=== PATIENT | male | born 1990 | race Two or more races ===

== ENCOUNTER 2021-03-23 20:27 | Inpatient (IN) | payer OTHER, SELFPAY ==
--- NOTE | ~2021-03-23 | XR_ITS ---
EXAMINATION: XR CHEST CLINICAL INFORMATION: Rule out pneumonia. Rule out aspiration status post ECT. COMPARISON: None TECHNIQUE: AP portable view of the chest was obtained. FINDINGS: No significant abnormality is noted involving the heart, lungs, mediastinum, bony thorax or soft tissues. XR/XR chest 1V IMPRESSION: No acute disease.
--- NOTE | ~2021-03-23 | MR_ITS ---
EXAMINATION: MRI OF THE BRAIN WITHOUT CONTRAST CLINICAL INFORMATION: Atypical psychosis and catatonia. COMPARISON: There are no prior studies available for comparison. TECHNIQUE: MRI of the brain was obtained using routine sequences without contrast. FINDINGS: No diffusion abnormalities are identified to suggest an acute or subacute infarct. No mass effect or midline shift is seen. The ventricles are normal in size. Brain parenchymal signal is unremarkable. No extra-axial fluid collections are seen. The brainstem and cerebellum are normal. No pathologic magnetic susceptibility artifact is identified on the gradient refocused acquisition. The craniovertebral junction, marrow signal, and midline structures are normal. The major intracranial flow-voids at the level of the [place] are preserved. The dural venous sinus flow-voids are maintained. The mastoid air cells are well-aerated. There is a retention cyst in the inferior left maxillary sinus. MR/MR head/brain wo con IMPRESSION: 1. There are no acute bleeds or infarcts. No masses are demonstrated.
--- NOTE | ~2021-03-23 | CT_ITS ---
EXAMINATION: CT CHEST WITHOUT CONTRAST CLINICAL INFORMATION: Aspiration COMPARISON: Chest radiograph 03/29/2021 TECHNIQUE: Multidetector volumetric CT imaging of the chest is performed without intravenous contrast. Axial MIP volume rendering provided. Sagittal and coronal reformatted images were obtained. This CT examination was performed using dose optimization techniques as appropriate, variously including the following: *Automated exposure control *Adjustment of mA and/or kV according to patient size (this includes techniques or standardized protocols for targeted exams where dose is matched to indication/reason for exam; i.e. extremities or head) *Use of iterative reconstruction technique DLP: 126 mGy-cm FINDINGS: LUNGS: There is coarsening of the bronchovascular markings right lower lobe with at least one opacified bronchiole and some fine tree-in-bud acinar opacities which may be associated with aspiration. There is no lobar or segmental airspace consolidation. There is a small right effusion. The left lung has subsegmental atelectasis at the posterior base. The central airways are clear. There is a solitary nodule right middle lobe under 4 mm. MEDIASTINUM: No hilar or mediastinal adenopathy. No pericardial effusion. PLEURA: Small right effusion. No pleural thickening or pleural mass. AXILLA: No lymphadenopathy. UPPER ABDOMEN: Unremarkable. OSSEOUS STRUCTURES: Unremarkable. CT/CT chest wo con IMPRESSION: 1. Coarsening bronchovascular markings right lower lobe with 1 bronchiolar mucous plugging and some fine tree-in-bud acinar opacities suggesting sequela from aspiration. Subsegmental atelectasis left posterior base. Trace right effusion. No adenopathy. 2. No lobar or segmental airspace consolidation. 3. Solitary nodule right middle lobe under 4 mm. No additional follow-up required in low risk patient.
[2021-03-23 22:13] VITALS: BP 109/60; PULSE 74; TEMP 36.6; O2SAT 96
--- NOTE | 2021-03-24 | ECG_ITS ---
Test Reason : preop Blood Pressure : / mmHG Vent. Rate : 070 BPM Atrial Rate : 070 BPM P-R Int : 142 ms QRS Dur : 082 ms QT Int : 384 ms P-R-T Axes : 034 049 061 degrees QTc Int : 414 ms Normal sinus rhythm Normal ECG No previous ECGs available Referred By: Martin Godoy Electronically Signed By:JOELLE DIXON MD
[2021-03-24 06:00] VITALS: BP 116/76; PULSE 80; RESP 16; TEMP 36.4; O2SAT 97
[2021-03-24] MEDS: LORazepam 1 MG TABLET 2 MG PO ×2 (08:09→14:26)
--- NOTE | 2021-03-24 10:02 | HO.PSYADMNOT ---
HPI Chief Complaint: Depression Diagnostics Vital Signs (24Hr): Vital Signs - 24 hr 03/23/21 22:13 03/24/21 06:00 Temperature 97.9 F 97.6 F Pulse Rate 74 80 Respiratory Rate 16 Blood Pressure 109/60 116/76 Pulse Oximetry 96 97 Meds/Allergies Meds Home Medications Acetaminophen (Acetaminophen 325 Mg Tablet) 650 mg PO Q6H PRN PRN Reason: Headache/Pain Mild Scale (1-3) Al Hydroxide/Mg Hydroxide (Magnesium Hydrox/Alum Hydrox 30 Ml Oral.Susp) 30 ml PO Q6H PRN PRN Reason: Heartburn/Nausea Hydroxyzine HCl (Hydroxyzine Hcl 25 Mg Tablet) 25 mg PO BEDTIME PRN PRN Reason: Anxiety Lorazepam (Lorazepam 1 Mg Tablet) 2 mg PO TID JASON Last Admin: 03/24/21 08:09 Dose: 2 mg Documented by: Lorazepam (Lorazepam 2 Mg/Ml Vial) 2 mg IM TID PRN PRN Reason: if unable to tolerate PO Magnesium Hydroxide (Milk Of Magnesia 30 Ml Oral.Susp) 30 ml PO DAILY PRN PRN Reason: Constipation Olanzapine (Olanzapine 5 Mg Tablet) 5 mg PO BID PRN PRN Reason: psychosis Trazodone HCl (Trazodone Hcl 50 Mg Tablet) 50 mg PO BEDTIME PRN PRN Reason: Insomnia Allergies Allergies Allergy/AdvReac Type Severity Reaction Status Date / Time No Known Allergies Allergy Unverified 03/23/21 21:09
--- NOTE | 2021-03-24 15:30 | P.HPPS_ITS ---
Documented by User: Erlinda Salgado 03/25/21 10:06 HPI Date of Service: 03/24/21 Chief Complaint: Depression Sources of Information: patient interviewed, chart reviewed and crisis/core team assessment reviewed Additional Sources of Information: Collateral information gathered from pt's father Juan Ramon. HPI Subjective Notes: Section 8 Narrative: Mr. 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 Per pt's father, Juan Ramon, pt started at beginning of the year to present as internally preoccupied, reading bible, not going to sleep, reading his bible. Pt later quit his job for unclear reasons in May. By June, per father, pt was mostly at home and progressively mute, not eating not engaging much. Pt has his first inpatient psychiatric admission in 10/2020 at [facility] for catatonia that apparently quickly resolved and pt was discharged within a week. However, pt quickly de-compensated and continued to present as mute, not moving, minimally eating. Pt was admitted to [facility] inpatient psych unit on 12/14/20 for treatment of catatonia. Per records received from [facility] pt was initially started on ativan 2mg po TID, given IM as well with little to no improvement. Pt was after started on olanzapine and haldol for psychosis related to latter day preoccupations. Pt was involuntarily committed on 03/16/2021 with plan for pt to be transferred to facility that could provide ECT treatment. At time of discharge/transfer to [facility] pt was on haldol 10mg po BID, Olanzapine 15mg po BID, ativan 2mg po BID. Pt was transferred to [facility] M5 with plan to start ECT for tx resistant catatonia. On the unit, Pt lying down on bed. His eyes are open, he turns his head when his name is called. He is mute throughout our encounter. 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 He does not answer any of my questions. He is currently not eating nor receiving medications orally. Labs were completed on admission including CBC, CMP, all wnl. Pt seen by hospitalist for H&P and clearance for ECT. Pt's father contacted and updated on pt's status on admission. Past Psychiatric History: Inpatient: [facility] 10/2020 catatonia, religiously preoccupied Medical Evaluation Reviewed: Yes PMF Family History: maternal grandmother with hx of psychosis Social History: Pt was born in [place]. His parents are . He came to [place] at age of 12 to live with his father and step mother. He completed GED. 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 Not , no children. Substance History: Per father cannabis while in high school but no current use of any substance for more than 10 years. Trauma History: father denies but unable to discuss with pt at this time Diagnostics Vital Signs (24Hr): Vital Signs - 24 hr 03/23/21 22:13 03/24/21 06:00 Temperature 97.9 F 97.6 F Pulse Rate 74 80 Respiratory Rate 16 Blood Pressure 109/60 116/76 Pulse Oximetry 96 97 Labs Results: 03/24/21 15:40 03/24/21 15:40 Meds/Allergies Meds Home Medications Acetaminophen (Acetaminophen 325 Mg Tablet) 650 mg PO Q6H PRN PRN Reason: Headache/Pain Mild Scale (1-3) Al Hydroxide/Mg Hydroxide (Magnesium Hydrox/Alum Hydrox 30 Ml Oral.Susp) 30 ml PO Q6H PRN PRN Reason: Heartburn/Nausea Enoxaparin Sodium (Enoxaparin Sodium 40 Mg/0.4 Ml Syringe) 40 mg SUBCUT Q24H [facility] Last Admin: 03/26/21 16:01 Dose: 40 mg Documented by: Hydroxyzine HCl (Hydroxyzine Hcl 25 Mg Tablet) 25 mg PO BEDTIME PRN PRN Reason: Anxiety Lorazepam (Lorazepam 2 Mg/Ml Vial) 2 mg IM QID PRN PRN Reason: if unable to tolerate PO Lorazepam (Lorazepam 2 Mg/Ml Vial) 2 mg IVPUSH QID [facility] Last Admin: 03/26/21 20:33 Dose: Not Given Documented by: Magnesium Hydroxide (Milk Of Magnesia 30 Ml Oral.Susp) 30 ml PO DAILY PRN PRN Reason: Constipation Olanzapine (Olanzapine 2.5 Mg Tablet) 2.5 mg PO BEDTIME [facility] Last Admin: 03/26/21 21:01 Dose: Not Given Documented by: Trazodone HCl (Trazodone Hcl 50 Mg Tablet) 50 mg PO BEDTIME PRN PRN Reason: Insomnia Allergies Allergies Allergy/AdvReac Type Severity Reaction Status Date / Time No Known Allergies Allergy Unverified 03/23/21 21:09 Mental Status Exam Mental Status Exam Narrative: Pt is alert, lying in bed, casually groomed, in no acute distress, mute, unable to assess thought process/content, memory/condition, suicidal or homicidal ideation, delusional content. Assessment & Plan Assessment & Plan (1) Catatonia: Status: Acute Code(s): F06.1 - Catatonic disorder due to known physiological condition Assessment and Plan: Mr. Carcamo is a 30 year-old male with recent psych hx starting in May 2020 when pt started to present as religiously preoccupied, not sleeping, gradually socially withdrawing quitting his job, not leaving the house, progressively becoming mute, not moving much. He was first admitted to [facility] in 10/2020 for catatonia, discharged within week with some improvement in symptoms but quickly de-compensated showing s/s of catatonia including mutism, psychomotor retardation, waxy flexibility (some present now). Pt admitted to [facility] on 12/14, starting on ativan 2 mg po TID, then combination of haldol and olanzapine were started. Pt was committed by civil court on 03/16 with plan to transfer to facility that could provide ECT. PLAN 1. Admit to M5- on Section 8 2. Start Ativan 2mg IV QID 3. Medical examination in preparation for ECT 4. Plan to start ECT on 03/27/2021 5. Pt's father Juan Ramon provided most collateral information, and was informed of plan, updated on pt's condition, is in agreement. 6. Aftercare planning 7. Pt currently on 1:1 8. Due to limited mobility- pt started on DVT prevention protocol Lovenox 40mg SQ q24h- may hold day of ECT 9. NPO night (12 hrs) prior to ECT. 10. No medication to be given morning prior to ECT 11. For now will hold haldol, will continue low dose of olanzapine 2.5 mg po qhs- will adjust antipsychotic dose/use as observe response to ECT. 12. Monitor oral intake, monitor labs, IV fluid as needed. Reason for continued inpatient stay Substantial Risk for: inability to function Documented by User: Martin Godoy MD 03/26/21 22:47 HPI Chief Complaint: Depression Diagnostics Labs Results: 03/24/21 15:40 03/24/21 15:40 Meds/Allergies Meds Home Medications Acetaminophen (Acetaminophen 325 Mg Tablet) 650 mg PO Q6H PRN PRN Reason: Headache/Pain Mild Scale (1-3) Al Hydroxide/Mg Hydroxide (Magnesium Hydrox/Alum Hydrox 30 Ml Oral.Susp) 30 ml PO Q6H PRN PRN Reason: Heartburn/Nausea Enoxaparin Sodium (Enoxaparin Sodium 40 Mg/0.4 Ml Syringe) 40 mg SUBCUT Q24H [facility] Last Admin: 03/26/21 16:01 Dose: 40 mg Documented by: Hydroxyzine HCl (Hydroxyzine Hcl 25 Mg Tablet) 25 mg PO BEDTIME PRN PRN Reason: Anxiety Lorazepam (Lorazepam 2 Mg/Ml Vial) 2 mg IM QID PRN PRN Reason: if unable to tolerate PO Lorazepam (Lorazepam 2 Mg/Ml Vial) 2 mg IVPUSH QID [facility] Last Admin: 03/26/21 20:33 Dose: Not Given Documented by: Magnesium Hydroxide (Milk Of Magnesia 30 Ml Oral.Susp) 30 ml PO DAILY PRN PRN Reason: Constipation Olanzapine (Olanzapine 2.5 Mg Tablet) 2.5 mg PO BEDTIME [facility] Last Admin: 03/26/21 21:01 Dose: Not Given Documented by: Trazodone HCl (Trazodone Hcl 50 Mg Tablet) 50 mg PO BEDTIME PRN PRN Reason: Insomnia Allergies Allergies Allergy/AdvReac Type Severity Reaction Status Date / Time No Known Allergies Allergy Unverified 03/23/21 21:09 Assessment & Plan Assessment & Plan (1) Catatonia: Status: Acute Code(s): F06.1 - Catatonic disorder due to known physiological condition
[2021-03-24 15:46] LABS: MANUAL DIFF FLAG NO
--- NOTE | 2021-03-24 15:50 | HO.HSGERICON ---
History of Present Illness Data of Consult Service Date: 03/24/21 Primary Care Provider: Unknown Physician HPI Reason for consult: ECT Clearance This is a 30 yo M who was transferred from [facility] for reportedly ECT. It appears the patient was admitted there on December 15, 2020 and now is being transferred here for ECT. Medical consult requested for ECT clearance. Patient is seen and examined in his room. He is catatonic and does not speak or interact in any manner. History is very limited. D/w Erlinda Salgado NP (patients psych provider) -- she spoke with the patients father who reported that he had no medical history. PMH Unable to assess PSH Unable to assess FH Unable to assess SH Unable to assess Review of Systems Review of Systems: Unable to assess, patient does not talk PMFSH Pertinent family history: . Social History Household Members: Family Housing: House Patient Tobacco Use Status: Never used Tobacco Currently Displaying Signs/Symptoms of Drug Intoxication Withdrawal: No Any prior treatment program specific to substance use: No Advance Directives: No Advance Directives Information Provided: No Do you have thoughts of harming others: None Do you have a plan to hurt others: No Plan Recently lost weight without trying: Unsure How much weight loss: Unsure service: No Sexual orientation: Did not discuss Meds Allergies Allergy/AdvReac Type Severity Reaction Status Date / Time No Known Allergies Allergy Unverified 03/23/21 21:09 Active Medications: Current Medications Acetaminophen (Acetaminophen 325 Mg Tablet) 650 mg PO Q6H PRN PRN Reason: Headache/Pain Mild Scale (1-3) Al Hydroxide/Mg Hydroxide (Magnesium Hydrox/Alum Hydrox 30 Ml Oral.Susp) 30 ml PO Q6H PRN PRN Reason: Heartburn/Nausea Enoxaparin Sodium (Enoxaparin Sodium 40 Mg/0.4 Ml Syringe) 40 mg SUBCUT Q24H JASON Hydroxyzine HCl (Hydroxyzine Hcl 25 Mg Tablet) 25 mg PO BEDTIME PRN PRN Reason: Anxiety Lorazepam (Lorazepam 2 Mg/Ml Vial) 2 mg IM QID PRN PRN Reason: if unable to tolerate PO Lorazepam (Lorazepam 2 Mg/Ml Vial) 2 mg IVPUSH QID JASON Magnesium Hydroxide (Milk Of Magnesia 30 Ml Oral.Susp) 30 ml PO DAILY PRN PRN Reason: Constipation Olanzapine (Olanzapine 2.5 Mg Tablet) 2.5 mg PO BEDTIME JASON Trazodone HCl (Trazodone Hcl 50 Mg Tablet) 50 mg PO BEDTIME PRN PRN Reason: Insomnia Results Labs CBC and Chem 7: 03/24/21 15:40 03/24/21 15:40 Assessment and Plan (1) Routine medical exam: Status: Acute This is 30 yo M who was transferred from [facility] for ECT. Medical consult sought for ECT clearance. 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 His EKG shows NSR. Unclear if a CT head was done at [facility] -- would obtain records of this. CBC/BMP are within normal limits. It appears that he has been hospitalized in the psychiatric unit at [facility] since November and not improved. Benefits of ECT may out weight any risks that he has. Physical Exam Vital Signs: Last Vital Signs Temp 97.6 F 03/24/21 06:00 Pulse 80 03/24/21 06:00 Resp 16 03/24/21 06:00 BP 116/76 03/24/21 06:00 Pulse Ox 97 03/24/21 06:00 Const Other: Gen - Awake, but does not interact, eyes are open and move spontaneously HEENT - EOMI CVS - S1S2, RRR Lungs - No respiratory distress Abd - Soft Neuro - unable to assess his cranial nerves due to his catatonia Ext - no edema Neuro Cranial nerves: Yes Other cranial nerve findings present (Unable to assess CN fully )
[2021-03-24] MEDS: LORazepam 2 MG/ML VIAL IM (15:51)
[2021-03-24 15:52] LABS: Basophils Percent Auto 0.4 % (0-2); Eosinophils Percent Auto 0.4 % (0-4); Hematocrit 43.7 % (42-52); Hemoglobin 14.8 g/dl (14.0-18.0); Imm Gran Abs Auto 0.02 X10*3/uL (0.00-0.03); Imm Gran Pct Auto 0.4 % (0.0-0.4); Lymphocytes Absolute Auto 1.7 X10*3/uL (1.2-4.9); Lymphocytes Percent Auto 30.1 % (20-40); Mean Corpuscular HGB Conc 33.9 g/dl (31.0-36.0); Mean Corpuscular Hemoglobin 28.2 pg (27.0-33.0); Mean Corpuscular Volume 83.2 fL (80-98); Mean Platelet Volume 11.1 fL (9.4-12.4); Monocytes Absolute Auto 0.5 X10*3/uL (0.1-1.2); Monocytes Percent Auto 9.4 % (2-11); Neutrophils Absolute Auto 3.3 X10*3/uL (2.0-8.3); Neutrophils Percent Auto 59.3 % (45-73); Platelet Count 181 X10*3/uL (160-400); Red Blood Count 5.25 X10*6/uL (4.60-5.80); Red Cell Distribution Width 11.9 % (11.0-16.0); White Blood Count 5.5 X10*3/uL (4.8-10.8)
[2021-03-24] MEDS: Enoxaparin Sodium 40 MG/0.4 ML SYRINGE SUBCUT (15:53)
[2021-03-24 16:05] LABS: Alanine Aminotransferase 28 U/L (0-40); Albumin Level 4.3 g/dL (3.5-5.0); Alkaline Phosphatase 115 U/L (39-117); Anion Gap 15 (12-20); Aspartate Amino Transferase 19 U/L (5-37); Bilirubin Total 0.5 mg/dL (0.0-1.0); Blood Urea Nitrogen 10 mg/dL (9-16); Calcium 9.5 mg/dL (8.4-10.2); Carbon Dioxide 23 mmol/L (22-29); Chloride 105 mmol/L (96-108); Estimated Glomerular Filt Rate > 60; Glucose Random 86 mg/dL (60-115); Potassium 4.1 mmol/L (3.3-5.1); Sodium 139 mmol/L (135-145); Total Protein 7.2 g/dL (6.5-8.0)
[2021-03-24 18:30] VITALS: BP 118/63; PULSE 75; TEMP 35.7; O2SAT 94
[2021-03-24] MEDS: LORazepam 2 MG/ML VIAL IVPUSH ×2 (19:13→21:01)
[2021-03-25 06:00] VITALS: BP 114/62; PULSE 76; RESP 18; TEMP 36.9; O2SAT 95
[2021-03-25] MEDS: LORazepam 2 MG/ML VIAL IVPUSH ×4 (08:31→19:57)
--- NOTE | 2021-03-25 09:11 | HO.PSYCHPN ---
Subjective Subjective Date of Service: 03/25/21 Reason For Visit: Depression Healthcare Proxy: Yes Interim History: Remains catatonic with brief periods of cooperation. Refuses food and fluids. Alert but mute. Medication Compliance: No Review of Systems Review of Systems Unable to assess, patient does not talk Yes Unobtainable due to mental status Mental Status Exam Mental Status Exam Narrative: Pt is alert, lying in bed, casually groomed, in no acute distress, mute, unable to assess thought process/content, memory/condition, suicidal or homicidal ideation, delusional content. Patient Appearance: Unkempt Patient Behavior: Dependent Behavior Comments: Catatonic Ability to Follow Directions: Poor Hallucinations: None Delusions: Not Present (unknown) Thought Process: Slowed Thinking (PM retardation) Abnormal Motor Activity Signs and Symptoms: Psychomotor Retardation (severe) Judgement: Poor Diagnostics Vital Signs (24Hr): Vital Signs - 24 hr 03/24/21 18:30 03/25/21 06:00 Temperature 96.2 F L 98.5 F Pulse Rate 75 76 Respiratory Rate 18 Blood Pressure 118/63 114/62 Pulse Oximetry 94 95 Labs Results: 03/24/21 15:40 03/24/21 15:40 Labs: Laboratory Results - last 48 hr 03/24/21 03/24/21 15:40 15:40 WBC 5.5 RBC 5.25 Hgb 14.8 Hct 43.7 MCV 83.2 MCH 28.2 MCHC 33.9 RDW 11.9 Plt Count 181 MPV 11.1 Immature Gran % (Auto) 0.4 Neut % (Auto) 59.3 Lymph % (Auto) 30.1 [place] % (Auto) 9.4 Eos % (Auto) 0.4 Baso % (Auto) 0.4 Lymph # (Auto) 1.7 [place] # (Auto) 0.5 Eos # (Auto) 0.0 Baso # (Auto) 0.0 Abs Immat Gran (auto) 0.02 Absolute Neuts (auto) 3.3 Absolute Nucleated RBC 0.000 Nucleated RBC % (auto) 0.0 Sodium 139 Potassium 4.1 Chloride 105 Carbon Dioxide 23 Anion Gap 15 BUN 10 Creatinine 0.85 Estim Creat Clear Calc TNP Estimated GFR > 60 Random Glucose 86 Calcium 9.5 Total Bilirubin 0.5 AST 19 ALT 28 Alkaline Phosphatase 115 Total Creatine Kinase 71 Total Protein 7.2 Albumin 4.3 Medications Medications Current Medications Acetaminophen (Acetaminophen 325 Mg Tablet) 650 mg PO Q6H PRN PRN Reason: Headache/Pain Mild Scale (1-3) Al Hydroxide/Mg Hydroxide (Magnesium Hydrox/Alum Hydrox 30 Ml Oral.Susp) 30 ml PO Q6H PRN PRN Reason: Heartburn/Nausea Enoxaparin Sodium (Enoxaparin Sodium 40 Mg/0.4 Ml Syringe) 40 mg SUBCUT Q24H [facility] Last Admin: 03/24/21 15:53 Dose: 40 mg Documented by: Hydroxyzine HCl (Hydroxyzine Hcl 25 Mg Tablet) 25 mg PO BEDTIME PRN PRN Reason: Anxiety Lorazepam (Lorazepam 2 Mg/Ml Vial) 2 mg IM QID PRN PRN Reason: if unable to tolerate PO Lorazepam (Lorazepam 2 Mg/Ml Vial) 2 mg IVPUSH QID [facility] Last Admin: 03/25/21 08:31 Dose: 2 mg Documented by: Magnesium Hydroxide (Milk Of Magnesia 30 Ml Oral.Susp) 30 ml PO DAILY PRN PRN Reason: Constipation Olanzapine (Olanzapine 2.5 Mg Tablet) 2.5 mg PO BEDTIME [facility] Last Admin: 03/24/21 20:59 Dose: Not Given Documented by: Trazodone HCl (Trazodone Hcl 50 Mg Tablet) 50 mg PO BEDTIME PRN PRN Reason: Insomnia Allergies Allergies Allergy/AdvReac Type Severity Reaction Status Date / Time No Known Allergies Allergy Unverified 03/23/21 21:09 Assessment & Plan Assessment & Plan (1) Routine medical exam: Status: Acute Code(s): Z00.00 - Encounter for general adult medical examination without abnormal findings (2) Catatonia: Status: Acute Code(s): F06.1 - Catatonic disorder due to known physiological condition Assessment and Plan: Ct plan. Will benefit from ECT Assessment and Plan: This is 30 yo M who was transferred from [facility] for ECT. Medical consult sought for ECT clearance. 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 His EKG shows NSR. Unclear if a CT head was done at [facility] -- would obtain records of this. CBC/BMP are within normal limits. It appears that he has been hospitalized in the psychiatric unit at [facility] since November and not improved. Benefits of ECT may out weight any risks that he has. I spent minutes with the patient and/or on the patient floor today, greater than?50% of which was spent counseling/coordinating care. Reason for contiued inpatient stay Substantial Risk for: inability to function
[2021-03-25] MEDS: Enoxaparin Sodium 40 MG/0.4 ML SYRINGE SUBCUT (16:00)
[2021-03-25 18:59] VITALS: BP 113/66; PULSE 97; TEMP 36.7
[2021-03-26 06:00] VITALS: BP 109/68; PULSE 81; TEMP 36.5; O2SAT 95
--- NOTE | 2021-03-26 08:33 | P.PNPSI_ITS ---
Subjective Subjective Date of Service: 03/26/21 Reason For Visit: Depression Interim History: 03/25/21:Remains catatonic with brief periods of cooperation. Refuses food and fluids. Alert but mute. 03/26/21:Largely catatonic. Briefly active when F visited. Even ate Then lapsed into mutism and catatonia Medication Compliance: Intermittent Review of Systems Acute medical concerns: Yes Catatonia Medical Review of Systems: unchanged Review of Systems Review of Systems Unable to assess, patient does not talk Yes Unobtainable due to mental status Mental Status Exam Mental Status Exam Narrative: Pt is alert, lying in bed, casually groomed, in no acute distress, mute, unable to assess thought process/content, memory/condition, suicidal or homicidal ideation, delusional content. Patient Appearance: Unkempt Patient Behavior: Dependent Behavior Comments: Catatonic Ability to Follow Directions: Poor Judgement and Insight: Catatonic Diagnostics Vital Signs (24Hr): Vital Signs - 24 hr 03/25/21 18:59 03/26/21 06:00 Temperature 98.0 F 97.7 F Pulse Rate 97 81 Blood Pressure 113/66 109/68 Pulse Oximetry 95 Labs Results: 03/24/21 15:40 03/24/21 15:40 Labs: Laboratory Results - last 48 hr 03/24/21 03/24/21 15:40 15:40 WBC 5.5 RBC 5.25 Hgb 14.8 Hct 43.7 MCV 83.2 MCH 28.2 MCHC 33.9 RDW 11.9 Plt Count 181 MPV 11.1 Immature Gran % (Auto) 0.4 Neut % (Auto) 59.3 Lymph % (Auto) 30.1 [place] % (Auto) 9.4 Eos % (Auto) 0.4 Baso % (Auto) 0.4 Lymph # (Auto) 1.7 [place] # (Auto) 0.5 Eos # (Auto) 0.0 Baso # (Auto) 0.0 Abs Immat Gran (auto) 0.02 Absolute Neuts (auto) 3.3 Absolute Nucleated RBC 0.000 Nucleated RBC % (auto) 0.0 Sodium 139 Potassium 4.1 Chloride 105 Carbon Dioxide 23 Anion Gap 15 BUN 10 Creatinine 0.85 Estim Creat Clear Calc TNP Estimated GFR > 60 Random Glucose 86 Calcium 9.5 Total Bilirubin 0.5 AST 19 ALT 28 Alkaline Phosphatase 115 Total Creatine Kinase 71 Total Protein 7.2 Albumin 4.3 Medications Medications Current Medications Acetaminophen (Acetaminophen 325 Mg Tablet) 650 mg PO Q6H PRN PRN Reason: Headache/Pain Mild Scale (1-3) Al Hydroxide/Mg Hydroxide (Magnesium Hydrox/Alum Hydrox 30 Ml Oral.Susp) 30 ml PO Q6H PRN PRN Reason: Heartburn/Nausea Enoxaparin Sodium (Enoxaparin Sodium 40 Mg/0.4 Ml Syringe) 40 mg SUBCUT Q24H [facility] Last Admin: 03/25/21 16:00 Dose: 40 mg Documented by: Hydroxyzine HCl (Hydroxyzine Hcl 25 Mg Tablet) 25 mg PO BEDTIME PRN PRN Reason: Anxiety Lorazepam (Lorazepam 2 Mg/Ml Vial) 2 mg IM QID PRN PRN Reason: if unable to tolerate PO Lorazepam (Lorazepam 2 Mg/Ml Vial) 2 mg IVPUSH QID [facility] Last Admin: 03/25/21 19:57 Dose: 2 mg Documented by: Magnesium Hydroxide (Milk Of Magnesia 30 Ml Oral.Susp) 30 ml PO DAILY PRN PRN Reason: Constipation Olanzapine (Olanzapine 2.5 Mg Tablet) 2.5 mg PO BEDTIME [facility] Last Admin: 03/25/21 20:09 Dose: Not Given Documented by: Trazodone HCl (Trazodone Hcl 50 Mg Tablet) 50 mg PO BEDTIME PRN PRN Reason: Insomnia Allergies Allergies Allergy/AdvReac Type Severity Reaction Status Date / Time No Known Allergies Allergy Unverified 03/23/21 21:09 Assessment & Plan Assessment & Plan (1) Catatonia: Status: Acute Code(s): F06.1 - Catatonic disorder due to known physiological condition Assessment and Plan: Mr. Carcamo is a 30 year-old male with recent psych hx starting in May 2020 when pt started to present as religiously preoccupied, not sleeping, gradually socially withdrawing quitting his job, not leaving the house, progressively becoming mute, not moving much. He was first admitted to [facility] in 10/2020 for catatonia, discharged within week with some improvement in symptoms but quickly de-compensated showing s/s of catatonia including mutism, psychomotor retardation, waxy flexibility (some present now). Pt admitted to [place] on 12/14, starting on ativan 2 mg po TID, then combination of haldol and olanz apine were started. Pt was committed by civil court on 03/16 with plan to transfer to facility that could provide ECT. PLAN 1. Admit to M5- on Section 8 2. Start Ativan 2mg IV QID 3. Medical examination in preparation for ECT 4. Plan to start ECT on 03/27/2021 5. Pt's father Juan Ramon provided most collateral information, and was informed of plan, updated on pt's condition, is in agreement. 6. Aftercare planning 7. Pt currently on 1:1 8. Due to limited mobility- pt started on DVT prevention protocol Lovenox 40mg SQ q24h- may hold day of ECT 9. NPO night (12 hrs) prior to ECT. 10. No medication to be given morning prior to ECT 11. For now will hold haldol, will continue low dose of olanzapine 2.5 mg po qhs- will adjust antipsychotic dose/use as observe response to ECT. 12. Monitor oral intake, monitor labs, IV fluid as needed. 1031: Ct plan towards ECT. Starts ECT on 03/27 I spent minutes with the patient and/or on the patient floor today, greater than?50% of which was spent counseling/coordinating care. Reason for contiued inpatient stay Substantial Risk for: inability to function
[2021-03-26] MEDS: LORazepam 2 MG/ML VIAL IVPUSH ×3 (08:50→16:44)
[2021-03-26] MEDS: Enoxaparin Sodium 40 MG/0.4 ML SYRINGE SUBCUT (16:01)
[2021-03-26 18:00] VITALS: BP 127/78; PULSE 90; RESP 18; TEMP 36.6; O2SAT 97
[2021-03-27] VITALS (9 sets, daily range): BP systolic 108–149; BP diastolic 65–95; PULSE 77–106; RESP 12–17; TEMP 36.1–36.9; O2SAT 95–99
--- NOTE | 2021-03-27 11:52 | HO.ANESPROP2 ---
HPI - Anesthesia Eval Consult details Narrative: 30 yo male patient with catatonia. For ECT PMFSH Active Problems Active Problems: All Active Problems (Updated 03/25/21 @ 09:56 by Erlinda Salgado) Catatonia (Acute) Routine medical exam (Acute) Apparently no PMH per chart from family, Psychiatry provider from [facility]. On admission at [facility] since November with no improvement in catatonia on meds. Transferred to [facility] for ECT [place] Family History Family history of problems with anesthesia: Unobtainable Surgical History History of Problems with Anesthesia: Unobtainable Social History Social History Household Members: Family Housing: House Patient Tobacco Use Status: Never used Tobacco Currently Displaying Signs/Symptoms of Drug Intoxication Withdrawal: No Any prior treatment program specific to substance use: No Advance Directives: No Advance Directives Information Provided: No Do you have thoughts of harming others: None Do you have a plan to hurt others: No Plan Recently lost weight without trying: Unsure How much weight loss: Unsure service: No Sexual orientation: Did not discuss Meds Allergies Allergy/AdvReac Type Severity Reaction Status Date / Time No Known Allergies Allergy Unverified 03/23/21 21:09 Active Medications: Current Medications Acetaminophen (Acetaminophen 325 Mg Tablet) 650 mg PO Q6H PRN PRN Reason: Headache/Pain Mild Scale (1-3) Al Hydroxide/Mg Hydroxide (Magnesium Hydrox/Alum Hydrox 30 Ml Oral.Susp) 30 ml PO Q6H PRN PRN Reason: Heartburn/Nausea Enoxaparin Sodium (Enoxaparin Sodium 40 Mg/0.4 Ml Syringe) 40 mg SUBCUT Q24H [facility] Last Admin: 03/26/21 16:01 Dose: 40 mg Documented by: Hydroxyzine HCl (Hydroxyzine Hcl 25 Mg Tablet) 25 mg PO BEDTIME PRN PRN Reason: Anxiety Lorazepam (Lorazepam 2 Mg/Ml Vial) 2 mg IM QID PRN PRN Reason: if unable to tolerate PO Lorazepam (Lorazepam 2 Mg/Ml Vial) 2 mg IVPUSH QID [facility] Last Admin: 03/27/21 10:04 Dose: Not Given Documented by: Magnesium Hydroxide (Milk Of Magnesia 30 Ml Oral.Susp) 30 ml PO DAILY PRN PRN Reason: Constipation Olanzapine (Olanzapine 2.5 Mg Tablet) 2.5 mg PO BEDTIME [facility] Last Admin: 03/26/21 21:01 Dose: Not Given Documented by: Trazodone HCl (Trazodone Hcl 50 Mg Tablet) 50 mg PO BEDTIME PRN PRN Reason: Insomnia Exam Exam Date and Time: March 27, 2021 1152 Height,Weight and Vital Signs: Height: 5' 4 Weight: 68kg Last Vital Signs Temp 97 F 03/27/21 06:00 Pulse 77 03/27/21 06:00 Resp 16 03/27/21 06:00 BP 108/65 03/27/21 06:00 Pulse Ox 95 03/27/21 06:00 Vital Signs Temp Pulse Resp BP Pulse Ox 03/27/21 06:00 97 F 77 16 108/65 95 03/26/21 18:00 97.9 F 90 18 127/78 97 Pertinent Lab Results Pertinent Lab Results: Laboratory Tests 03/24/21 03/24/21 15:40 15:40 WBC 5.5 RBC 5.25 Hgb 14.8 Hct 43.7 MCV 83.2 MCH 28.2 MCHC 33.9 RDW 11.9 Plt Count 181 MPV 11.1 Immature Gran % (Auto) 0.4 Neut % (Auto) 59.3 Lymph % (Auto) 30.1 [place] % (Auto) 9.4 Eos % (Auto) 0.4 Baso % (Auto) 0.4 Lymph # (Auto) 1.7 [place] # (Auto) 0.5 Eos # (Auto) 0.0 Baso # (Auto) 0.0 Abs Immat Gran (auto) 0.02 Absolute Neuts (auto) 3.3 Absolute Nucleated RBC 0.000 Nucleated RBC % (auto) 0.0 Sodium 139 Potassium 4.1 Chloride 105 Carbon Dioxide 23 Anion Gap 15 BUN 10 Creatinine 0.85 Estim Creat Clear Calc TNP Estimated GFR > 60 Random Glucose 86 Calcium 9.5 Total Bilirubin 0.5 AST 19 ALT 28 Alkaline Phosphatase 115 Total Creatine Kinase 71 Total Protein 7.2 Albumin 4.3 12 lead ekg: Date of Service: 03/24/21 Procedure(s): ECG 12 lead EKG Vent. Rate : 070 BPM ? ? Atrial Rate : 070 BPM ?? P-R Int : 142 ms? QRS Dur : 082 ms ? ? QT Int : 384 ms ? ? ? P-R-T Axes : 034 049 061 degrees ?? QTc Int : 414 ms ? Normal sinus rhythm Normal ECG No previous ECGs available ? Airway Heart: RRR Lungs: CTAB Assessment and Plan Assessment Anesthesia Assessment: Anesthesia Plan Discussed and Chart Reviewed Final Anesthetic Review Family History of Problems with Anesthesia: Unobtainable History of Problems with Anesthesia: Unobtainable NPO: Yes ASA Class: III Final Preanesthetic Review: No Changes in Pt Med Stat, Meds/Allgs Chart Reviewed, Consent Obtained/Reviewed and Anes Risks/Benef Reviewed Patient Risk: Intermediate Procedure Risk: Intermediate Assessment/Block/Sedation in SS: Assess/Block/Sedation-SS Anesthetic Plan Anesthetic Plan: GA Disposition: Standard PACU and Inp. Admit - Standard Bed
--- NOTE | 2021-03-27 12:41 | MHC.SHP ---
Pre-Procedural Eval Section A Date of Service: 03/27/21 The patient is an INPATIENT: Yes Changes since office visit: No Cold of Flu in the past 2 weeks, No New Medical Problems, No Changes in Medication and No Patient answered all questions Section B Chief Complaint: Depression Details of Present Illness: The patient has catatonic symptoms, unable to verbalize new symptoms Relevant Family History (Specify if Yes): No Relevant Social History: None Present Medications: None Medical History: No relevant PMH History of Previous Operations: No relevant previous surgery Allergies: Allergies Allergy/AdvReac Type Severity Reaction Status Date / Time No Known Allergies Allergy Unverified 03/23/21 21:09 Review of Systems Sugical H&P ROS: Negative: Constitution, Cardiovascular, Respiratory, Neurological, Psychiatric, Hem-Onc, Allergic/Immunologic, Gastrointestinal, Genitourinary, Musculoskeletal, Integumentary, Endocrine and Eyes/Ears/Nose/Throat Exam Surgical H&P Exam: Normal: HEENT, Normal: Heart, Normal: Lungs, Normal: Extremities, Normal: Abdomen, Normal: Skin and Normal: Neurological Plan Diagnosis/Plan: Unchanged I have reviewed the history and physical and performed a pertinent physical examination on my patient. No changes have occurred unless specified.
--- NOTE | 2021-03-27 13:14 | HO.ECTPROC ---
ECT Procedure Note Diagnosis/Treatment Date of Service: 03/27/21 Diagnosis: Catatonia Current Treatment Number: 1 Treatment: Series Interval Clinical Notes: The patient was catatonic, mute, unable to answer any question. ECT Settings Device: THYMATRON DGx Electrode Placement: Bitemporal Program/Pulse Width: 0.50 Energy Percent: 100 Seizure Duration By EEG (in seconds): 59 By Motor Observation (in seconds): 25 Medications Administration General Anesthetic: Etomidate (16) Muscle Relaxant: Succinylcholine (100) Ancillary Medications Analgesics: Torodol - Pre ECT Anti-emetics: Zofran - Pre ECT Airway Management Airway Management: Bag Mask Ventilation Treatment Recommendations Electrode Placement: Bifrontal Program/Pulse Width: 0.50 Energy Percent: 80 Pt Tolerated Procedure w/o Issue: Yes
[2021-03-27 13:16] LABS: COVID-19 Test Negative (Negative)
[2021-03-27] MEDS: Enoxaparin Sodium 40 MG/0.4 ML SYRINGE SUBCUT (15:13)
[2021-03-27] MEDS: LORazepam 2 MG/ML VIAL IVPUSH ×3 (15:13→20:32)
--- NOTE | 2021-03-27 15:31 | HO.PSYCHPN ---
Subjective Subjective Date of Service: 03/27/21 Reason For Visit: Depression Subjective Notes: Conditional Voluntary Interim History: Pt had first ECT today. Pt after more verbal although limit to few words to answer, smiling. He saw family. He reports he is doing okay. He was eating lunch. Medication Compliance: Yes Side effects from medications: No Attending Groups: No Review of Systems Review of Systems Unable to assess, patient does not talk Yes Unobtainable due to mental status Mental Status Exam Mental Status Exam Narrative: Appearance: casually groomed, fair hygiene in NAD Behavior:smiles at times psychomotor:less retardation Speech: monosylabic, clear, minimally spontaneous Thought process: Thought content: Mood: okay Affect: brightens at times SI:denies HI:denies VH/AH:unable to respond Delusions:no overt delusional content, but internally preoccupied Insight/judgment:impaired x 2 Memory/cog:alert, impaired secondary to psychiatric symptoms. not oriented to place, situation Diagnostics Vital Signs (24Hr): Vital Signs - 24 hr 03/26/21 18:00 03/27/21 06:00 03/27/21 13:21 Temperature 97.9 F 97.0 F 97.9 F Pulse Rate 90 77 85 Respiratory Rate 18 16 17 Blood Pressure 127/78 108/65 149/83 H Pulse Oximetry 97 95 96 03/27/21 13:26 03/27/21 13:31 03/27/21 13:36 Temperature Pulse Rate 106 H 102 H 98 Respiratory Rate 12 15 16 Blood Pressure 146/90 H 137/95 H 139/78 Pulse Oximetry 97 98 99 03/27/21 13:51 03/27/21 14:06 03/27/21 14:41 Temperature 98.4 F 98.3 F Pulse Rate 99 95 87 Respiratory Rate 16 16 16 Blood Pressure 120/84 122/75 126/83 Pulse Oximetry 96 98 96 Labs Results: 03/24/21 15:40 03/24/21 15:40 Labs: Laboratory Results - last 48 hr 03/27/21 12:45 COVID-19 ([facility]) Negative COVID-19 Clin Com See Note Medications Medications Current Medications Acetaminophen (Acetaminophen 325 Mg Tablet) 650 mg PO Q6H PRN PRN Reason: Headache/Pain Mild Scale (1-3) Acetaminophen (Acetaminophen 325 Mg Tablet) 650 mg PO ONCE PRN PRN Reason: Pain, Mild (Pain Scale 1-3) Al Hydroxide/Mg Hydroxide (Magnesium Hydrox/Alum Hydrox 30 Ml Oral.Susp) 30 ml PO Q6H PRN PRN Reason: Heartburn/Nausea Enoxaparin Sodium (Enoxaparin Sodium 40 Mg/0.4 Ml Syringe) 40 mg SUBCUT Q24H [facility] Last Admin: 03/27/21 15:13 Dose: 40 mg Documented by: Hydroxyzine HCl (Hydroxyzine Hcl 25 Mg Tablet) 25 mg PO BEDTIME PRN PRN Reason: Anxiety Lorazepam (Lorazepam 2 Mg/Ml Vial) 2 mg IM QID PRN PRN Reason: if unable to tolerate PO Lorazepam (Lorazepam 2 Mg/Ml Vial) 2 mg IVPUSH QID [facility] Last Admin: 03/27/21 16:53 Dose: 2 mg Documented by: Magnesium Hydroxide (Milk Of Magnesia 30 Ml Oral.Susp) 30 ml PO DAILY PRN PRN Reason: Constipation Olanzapine (Olanzapine 2.5 Mg Tablet) 2.5 mg PO BEDTIME [facility] Last Admin: 03/26/21 21:01 Dose: Not Given Documented by: Ondansetron HCl (Ondansetron Hcl 4 Mg/2 Ml Vial) 4 mg IVPUSH ONCE PRN PRN Reason: Nausea and Vomiting Oxycodone HCl (Oxycodone Hcl Immed Release 5 Mg Tablet) 5 mg PO ONCE PRN PRN Reason: Pain, Severe (Pain Scale 7-10) Trazodone HCl (Trazodone Hcl 50 Mg Tablet) 50 mg PO BEDTIME PRN PRN Reason: Insomnia Allergies Allergies Allergy/AdvReac Type Severity Reaction Status Date / Time No Known Allergies Allergy Unverified 03/23/21 21:09 Assessment & Plan Assessment & Plan (1) Catatonia: Status: Acute Code(s): F06.1 - Catatonic disorder due to known physiological condition Assessment and Plan: Mr. Carcamo is a 30 year-old male with recent psych hx starting in May 2020 when pt started to present as religiously preoccupied, not sleeping, gradually socially withdrawing quitting his job, not leaving the house, progressively becoming mute, not moving much. He was first admitted to [facility] in 10/2020 for catatonia, discharged within week with some improvement in symptoms but quickly de-compensated showing s/s of catatonia including mutism, psychomotor retardation, waxy flexibility (some present now). Pt admitted to [place] on 12/14, starting on ativan 2 mg po TID, then combination of haldol and olanzapine were started. Pt was committed by civil court on 03/16 with plan to transfer to facility that could provide ECT. PLAN 1. Admit to - on Section 8 2. Start Ativan 2mg IV QID 3. Medical examination in preparation for ECT 4. Plan to start ECT on 03/27/2021 5. Pt's father Juan Ramon provided most collateral information, and was informed of plan, updated on pt's condition, is in agreement. 6. Aftercare planning 7. Pt currently on 1:1 8. Due to limited mobility- pt started on DVT prevention protocol Lovenox 40mg SQ q24h- may hold day of ECT 9. NPO night (12 hrs) prior to ECT. 10. No medication to be given morning prior to ECT 11. For now will hold haldol, will continue low dose of olanzapine 2.5 mg po qhs- will adjust antipsychotic dose/use as observe response to ECT. 12. Monitor oral intake, monitor labs, IV fluid as needed. I spent minutes with the patient and/or on the patient floor today, greater than?50% of which was spent counseling/coordinating care. Reason for contiued inpatient stay Substantial Risk for: inability to function
[2021-03-27] MEDS: OLANZapine 2.5 MG TABLET PO (20:33)
[2021-03-28 06:00] VITALS: BP 118/60; PULSE 94; TEMP 37; O2SAT 95
[2021-03-28] MEDS: LORazepam 2 MG/ML VIAL IVPUSH ×4 (08:10→22:00)
[2021-03-28 12:05] VITALS: BMI 25.3
[2021-03-28] MEDS: Enoxaparin Sodium 40 MG/0.4 ML SYRINGE SUBCUT (16:03)
--- NOTE | 2021-03-28 16:04 | HO.PSYCHPN ---
Subjective Subjective Date of Service: 03/28/21 Reason For Visit: Depression Subjective Notes: Section 8 Interim History: Pt mostly in bed, not moving much but talking a bit more. He was able to respond simple questions appropriately with one or two words. He reports he is fine. He was able to tell year, place, month and date correctly. He denies SI/HI. Continues to present with significant catatonic s/s including waxy flexibility, speech minimally if any spontaneous, black stare, mostly in bed, oral intake minimal. Review of Systems Review of Systems Unable to assess, patient does not talk Yes Unobtainable due to mental status Mental Status Exam Mental Status Exam Narrative: Appearance: casually groomed, fair hygiene in NAD Behavior:smiles at times psychomotor:less retardation Speech: monosylabic, clear, minimally spontaneous Thought process: Thought content: Mood: okay Affect: brightens at times SI:denies HI:denies VH/AH:unable to respond Delusions:no overt delusional content, but internally preoccupied Insight/judgment:impaired x 2 Memory/cog:alert, oriented to place, month, date, year. Diagnostics Vital Signs (24Hr): Vital Signs - 24 hr 03/27/21 20:30 03/28/21 06:00 Temperature 98 F 98.6 F Pulse Rate 94 94 Blood Pressure 116/90 H 118/60 Pulse Oximetry 95 Body Mass Index 25.3 Labs Results: 03/24/21 15:40 03/24/21 15:40 Labs: Laboratory Results - last 48 hr 03/27/21 12:45 COVID-19 ([facility]) Negative COVID-19 Clin Com See Note Medications Medications Current Medications Acetaminophen (Acetaminophen 325 Mg Tablet) 650 mg PO Q6H PRN PRN Reason: Headache/Pain Mild Scale (1-3) Acetaminophen (Acetaminophen 325 Mg Tablet) 650 mg PO ONCE PRN PRN Reason: Pain, Mild (Pain Scale 1-3) Al Hydroxide/Mg Hydroxide (Magnesium Hydrox/Alum Hydrox 30 Ml Oral.Susp) 30 ml PO Q6H PRN PRN Reason: Heartburn/Nausea Enoxaparin Sodium (Enoxaparin Sodium 40 Mg/0.4 Ml Syringe) 40 mg SUBCUT Q24H [facility] Last Admin: 03/27/21 15:13 Dose: 40 mg Documented by: Hydroxyzine HCl (Hydroxyzine Hcl 25 Mg Tablet) 25 mg PO BEDTIME PRN PRN Reason: Anxiety Lorazepam (Lorazepam 2 Mg/Ml Vial) 2 mg IM QID PRN PRN Reason: if unable to tolerate PO Lorazepam (Lorazepam 2 Mg/Ml Vial) 2 mg IVPUSH QID [facility] Last Admin: 03/28/21 13:23 Dose: 2 mg Documented by: Magnesium Hydroxide (Milk Of Magnesia 30 Ml Oral.Susp) 30 ml PO DAILY PRN PRN Reason: Constipation Olanzapine (Olanzapine 2.5 Mg Tablet) 2.5 mg PO BEDTIME [facility] Last Admin: 03/27/21 20:33 Dose: 2.5 mg Documented by: Ondansetron HCl (Ondansetron Hcl 4 Mg/2 Ml Vial) 4 mg IVPUSH ONCE PRN PRN Reason: Nausea and Vomiting Oxycodone HCl (Oxycodone Hcl Immed Release 5 Mg Tablet) 5 mg PO ONCE PRN PRN Reason: Pain, Severe (Pain Scale 7-10) Trazodone HCl (Trazodone Hcl 50 Mg Tablet) 50 mg PO BEDTIME PRN PRN Reason: Insomnia Allergies Allergies Allergy/AdvReac Type Severity Reaction Status Date / Time No Known Allergies Allergy Unverified 03/23/21 21:09 Assessment & Plan Assessment & Plan (1) Catatonia: Status: Acute Code(s): F06.1 - Catatonic disorder due to known physiological condition Assessment and Plan: Mr. Carcamo is a 30 year-old male with recent psych hx starting in May 2020 when pt started to present as religiously preoccupied, not sleeping, gradually socially withdrawing quitting his job, not leaving the house, progressively becoming mute, not moving much. He was first admitted to [facility] in 10/2020 for catatonia, discharged within week with some improvement in symptoms but quickly de-compensated showing s/s of catatonia including mutism, psychomotor retardation, waxy flexibility (some present now). Pt admitted to [place] on 12/14, starting on ativan 2 mg po TID, then combination of haldol and olanzapine were started. Pt was committed by civil court on 03/16 with plan to transfer to facility that could provide ECT. PLAN 1. Admit to M5- on Section 8 2. Continue Ativan 2mg IV QID 3. Medical examination in preparation for ECT 4. Plan to start ECT on 03/27/2021 5. Pt's father Juan Ramon provided most collateral information, and was informed of plan, updated on pt's condition, is in agreement. 6. Aftercare planning 7. Pt currently on 1:1 8. Due to limited mobility- pt started on DVT prevention protocol Lovenox 40mg SQ q24h- may hold day of ECT 9. NPO night (12 hrs) prior to ECT. 10. No medication to be given morning prior to ECT 11. For now will hold haldol, will continue low dose of olanzapine 2.5 mg po qhs- will adjust antipsychotic dose/use as observe response to ECT. 12. Monitor oral intake, monitor labs, IV fluid as needed. I spent minutes with the patient and/or on the patient floor today, greater than?50% of which was spent counseling/coordinating care. Reason for contiued inpatient stay Substantial Risk for: inability to function
[2021-03-28] MEDS: OLANZapine 2.5 MG TABLET PO (22:03)
[2021-03-28 22:15] VITALS: BP 112/55; PULSE 103; TEMP 37.1; O2SAT 95
[2021-03-29] VITALS (15 sets, daily range): BP systolic 111–150; BP diastolic 63–92; PULSE 87–121; RESP 14–18; TEMP 36.9–39.7; O2SAT 94–99
--- NOTE | 2021-03-29 07:27 | P.CONAN_ITS ---
HPI - Anesthesia Eval Consult details Narrative: Major depression [facility] Active Problems Active Problems: All Active Problems (Updated 03/25/21 @ 09:56 by Erlinda Salgado) Catatonia (Acute) Routine medical exam (Acute) Family History Family history of problems with anesthesia: Unobtainable Surgical History History of Problems with Anesthesia: Unobtainable Social History Social History Household Members: Family Housing: House Patient Tobacco Use Status: Never used Tobacco Currently Displaying Signs/Symptoms of Drug Intoxication Withdrawal: No Any prior treatment program specific to substance use: No Advance Directives: No Advance Directives Information Provided: No Do you have thoughts of harming others: None Do you have a plan to hurt others: No Plan Recently lost weight without trying: Unsure How much weight loss: Unsure service: No Sexual orientation: Did not discuss Meds Allergies Allergy/AdvReac Type Severity Reaction Status Date / Time No Known Allergies Allergy Unverified 03/23/21 21:09 Active Medications: Current Medications Acetaminophen (Acetaminophen 325 Mg Tablet) 650 mg PO Q6H PRN PRN Reason: Headache/Pain Mild Scale (1-3) Acetaminophen (Acetaminophen 325 Mg Tablet) 650 mg PO ONCE PRN PRN Reason: Pain, Mild (Pain Scale 1-3) Al Hydroxide/Mg Hydroxide (Magnesium Hydrox/Alum Hydrox 30 Ml Oral.Susp) 30 ml PO Q6H PRN PRN Reason: Heartburn/Nausea Enoxaparin Sodium (Enoxaparin Sodium 40 Mg/0.4 Ml Syringe) 40 mg SUBCUT Q24H [facility] Last Admin: 03/28/21 16:03 Dose: 40 mg Documented by: Hydroxyzine HCl (Hydroxyzine Hcl 25 Mg Tablet) 25 mg PO BEDTIME PRN PRN Reason: Anxiety Lorazepam (Lorazepam 2 Mg/Ml Vial) 2 mg IM QID PRN PRN Reason: if unable to tolerate PO Lorazepam (Lorazepam 2 Mg/Ml Vial) 2 mg IVPUSH QID [facility] Last Admin: 03/28/21 22:00 Dose: 2 mg Documented by: Magnesium Hydroxide (Milk Of Magnesia 30 Ml Oral.Susp) 30 ml PO DAILY PRN PRN Reason: Constipation Olanzapine (Olanzapine 2.5 Mg Tablet) 2.5 mg PO BEDTIME [facility] Last Admin: 03/28/21 22:03 Dose: 2.5 mg Documented by: Ondansetron HCl (Ondansetron Hcl 4 Mg/2 Ml Vial) 4 mg IVPUSH ONCE PRN PRN Reason: Nausea and Vomiting Oxycodone HCl (Oxycodone Hcl Immed Release 5 Mg Tablet) 5 mg PO ONCE PRN PRN Reason: Pain, Severe (Pain Scale 7-10) Trazodone HCl (Trazodone Hcl 50 Mg Tablet) 50 mg PO BEDTIME PRN PRN Reason: Insomnia Exam Exam Date and Time: March 29, 2021 07 Height,Weight and Vital Signs: Height 5 ft 3.5 in Weight 65.9 kg Last Vital Signs Temp 99.4 F 03/29/21 07:12 Pulse 88 03/29/21 07:12 Resp 16 03/29/21 07:12 BP 128/79 03/29/21 07:12 Pulse Ox 95 03/29/21 07:12 Pertinent Lab Results Pertinent Lab Results: Laboratory Tests 03/24/21 03/24/21 03/27/21 15:40 15:40 12:45 WBC 5.5 RBC 5.25 Hgb 14.8 Hct 43.7 MCV 83.2 MCH 28.2 MCHC 33.9 RDW 11.9 Plt Count 181 MPV 11.1 Immature Gran % (Auto) 0.4 Neut % (Auto) 59.3 Lymph % (Auto) 30.1 [place] % (Auto) 9.4 Eos % (Auto) 0.4 Baso % (Auto) 0.4 Lymph # (Auto) 1.7 [place] # (Auto) 0.5 Eos # (Auto) 0.0 Baso # (Auto) 0.0 Abs Immat Gran (auto) 0.02 Absolute Neuts (auto) 3.3 Absolute Nucleated RBC 0.000 Nucleated RBC % (auto) 0.0 Sodium 139 Potassium 4.1 Chloride 105 Carbon Dioxide 23 Anion Gap 15 BUN 10 Creatinine 0.85 Estim Creat Clear Calc TNP Estimated GFR > 60 Random Glucose 86 Calcium 9.5 Total Bilirubin 0.5 AST 19 ALT 28 Alkaline Phosphatase 115 Total Creatine Kinase 71 Total Protein 7.2 Albumin 4.3 COVID-19 ([facility]) Negative COVID-19 Clin Com See Note Airway Mallampati Class: II TM Dist: >3cm Neck ROM: Limited Loose/Missing/Broken Teeth: No Heart: [id number] Lungs: cta b/l Assessment and Plan Assessment Anesthesia Assessment: Anesthesia Plan Discussed and Chart Reviewed Final Anesthetic Review Family History of Problems with Anesthesia: Unobtainable History of Problems with Anesthesia: Unobtainable NPO: Yes ASA Class: II Final Preanesthetic Review: No Changes in Pt Med Stat, Meds/Allgs Chart Reviewed, Consent Obtained/Reviewed and Anes Risks/Benef Reviewed Patient Risk: Intermediate Procedure Risk: Intermediate Assessment/Block/Sedation in SS: Assess/Block/Sedation-SS Anesthetic Plan Anesthetic Plan: GA and Agree w/ Assess. and Plan Disposition: Standard PACU
--- NOTE | 2021-03-29 08:27 | MHC.SHP ---
Pre-Procedural Eval Section A Date of Service: 03/29/21 The patient is an INPATIENT: Yes Changes since office visit: Yes Cold of Flu in the past 2 weeks, Yes New Medical Problems, Yes Changes in Medication and Yes Patient answered all questions The History & Physical has been completed within 30 days and I have reviewed it.: Yes Section B Chief Complaint: Depression Allergies: Allergies Allergy/AdvReac Type Severity Reaction Status Date / Time No Known Allergies Allergy Unverified 03/23/21 21:09 Plan I have reviewed the history and physical and performed a pertinent physical examination on my patient. No changes have occurred unless specified.
--- NOTE | 2021-03-29 08:30 | HO.ECTPROC ---
ECT Procedure Note Diagnosis/Treatment Date of Service: 03/29/21 Diagnosis: Catatonia Previous ECT Date: 03/27/21 Current Treatment Number: 2 Treatment: Series Interval Clinical Notes: Patient's catatonia improved with the first ECT. Now, he has some symptoms. ECT Settings Device: THYMATRON DGx Electrode Placement: Bitemporal Program/Pulse Width: 0.50 Energy Percent: 80 Seizure Duration By EEG (in seconds): 52 By Motor Observation (in seconds): 29 Medications Administration General Anesthetic: Etomidate (18) Muscle Relaxant: Succinylcholine (100) Ancillary Medications Analgesics: Torodol - Pre ECT Anti-emetics: Zofran - Pre ECT Miscillaneous Medications: Flumazenil (0.5) Airway Management Airway Management: Bag Mask Ventilation Treatment Recommendations No Changes Recommended: No change Pt Tolerated Procedure w/o Issue: Yes
--- NOTE | 2021-03-29 12:55 | ECG_ITS ---
Test Reason : CHEST PAIN Blood Pressure : / mmHG Vent. Rate : 124 BPM Atrial Rate : 124 BPM P-R Int : 148 ms QRS Dur : 078 ms QT Int : 284 ms P-R-T Axes : 049 064 077 degrees QTc Int : 408 ms Sinus tachycardia Nonspecific ST abnormality Abnormal ECG When compared with ECG of 24-MAR-2021 11:00, Vent. rate has increased BY [address] more depressed Lateral leads Referred By: Erlinda Salgado Electronically Signed By:JOELLE DIXON MD
[2021-03-29] MEDS: Acetaminophen 325 MG TABLET 650 MG PO (13:05)
[2021-03-29 13:23] LABS: MANUAL DIFF FLAG NO
[2021-03-29 13:27] LABS: Basophils Percent Auto 0.3 % (0-2); Eosinophils Percent Auto 0.1 % (0-4); Hematocrit 42.9 % (42.0-52.0); Hemoglobin 14.4 g/dl (14.0-18.0); Imm Gran Abs Auto 0.03 X10*3/uL (0.00-0.03); Imm Gran Pct Auto 0.3 % (0.0-0.4); Lymphocytes Absolute Auto 1.3 X10*3/uL (1.2-4.9); Lymphocytes Percent Auto 11.7 % (20-40); Mean Corpuscular HGB Conc 33.6 g/dl (31.0-36.0); Mean Corpuscular Hemoglobin 28.1 pg (27.0-33.0); Mean Corpuscular Volume 83.8 fL (80.0-98.0); Mean Platelet Volume 10.6 fL (9.4-12.4); Monocytes Absolute Auto 1.1 X10*3/uL (0.1-1.2); Monocytes Percent Auto 9.7 % (2-11); Neutrophils Absolute Auto 8.63 x10*3/uL (2.0-8.3); Neutrophils Percent Auto 77.9 % (45-73); Platelet Count 169 X10*3/uL (160-400); Red Blood Count 5.12 X10*6/uL (4.60-5.80); Red Cell Distribution Width 11.9 % (11.0-16.0); White Blood Count 11.1 X10*3/uL (4.8-10.8)
[2021-03-29 13:38] LABS: D Dimer 386 NG/ML
--- NOTE | 2021-03-29 13:39 | PM.ANESCN ---
History of Present Illness Consult details Consult date: 03/29/21 Narrative: pt with new onset fever. asked to seee pateinet for possible anesthesia complication. pt reports feeling fine until eating and afterwards not feeling well. complaining of AKERS, aches and pains, sore throat. fever 103.5 recieiving tylenol and [employer] aware oredering labs . [facility] Social History Social History Household Members: Family Housing: House Patient Tobacco Use Status: Never used Tobacco Currently Displaying Signs/Symptoms of Drug Intoxication Withdrawal: No Any prior treatment program specific to substance use: No Advance Directives: No Advance Directives Information Provided: No Do you have thoughts of harming others: None Do you have a plan to hurt others: No Plan Recently lost weight without trying: Unsure How much weight loss: Unsure service: No Sexual orientation: Did not discuss Meds Allergies Allergy/AdvReac Type Severity Reaction Status Date / Time No Known Allergies Allergy Unverified 03/23/21 21:09 Active Medications: Current Medications Acetaminophen (Acetaminophen 325 Mg Tablet) 650 mg PO Q6H PRN PRN Reason: Headache/Pain Mild Scale (1-3) Last Admin: 03/29/21 13:05 Dose: 650 mg Documented by: Acetaminophen (Acetaminophen 325 Mg Tablet) 650 mg PO ONCE PRN PRN Reason: Pain, Mild (Pain Scale 1-3) Al Hydroxide/Mg Hydroxide (Magnesium Hydrox/Alum Hydrox 30 Ml Oral.Susp) 30 ml PO Q6H PRN PRN Reason: Heartburn/Nausea Enoxaparin Sodium (Enoxaparin Sodium 40 Mg/0.4 Ml Syringe) 40 mg SUBCUT Q24H [facility] Last Admin: 03/28/21 16:03 Dose: 40 mg Documented by: Hydroxyzine HCl (Hydroxyzine Hcl 25 Mg Tablet) 25 mg PO BEDTIME PRN PRN Reason: Anxiety Lorazepam (Lorazepam 2 Mg/Ml Vial) 2 mg IM QID PRN PRN Reason: if unable to tolerate PO Lorazepam (Lorazepam 1 Mg Tablet) 2 mg PO QID [facility] Magnesium Hydroxide (Milk Of Magnesia 30 Ml Oral.Susp) 30 ml PO DAILY PRN PRN Reason: Constipation Olanzapine (Olanzapine 2.5 Mg Tablet) 2.5 mg PO BEDTIME [facility] Last Admin: 03/28/21 22:03 Dose: 2.5 mg Documented by: Ondansetron HCl (Ondansetron Hcl 4 Mg/2 Ml Vial) 4 mg IVPUSH ONCE PRN PRN Reason: Nausea and Vomiting Ondansetron HCl (Ondansetron Hcl 4 Mg/2 Ml Vial) 4 mg IVPUSH ONCE PRN PRN Reason: Nausea and Vomiting Oxycodone HCl (Oxycodone Hcl Immed Release 5 Mg Tablet) 5 mg PO ONCE PRN PRN Reason: Pain, Severe (Pain Scale 7-10) Oxycodone HCl (Oxycodone Hcl Immed Release 5 Mg Tablet) 10 mg PO ONCE PRN PRN Reason: Pain, Severe (Pain Scale 7-10) Trazodone HCl (Trazodone Hcl 50 Mg Tablet) 50 mg PO BEDTIME PRN PRN Reason: Insomnia Physical Exam Vital Signs: Vital Signs: Last Vital Signs Temp 103.5 F H 03/29/21 12:52 Pulse 121 H 03/29/21 12:52 Resp 14 03/29/21 11:50 BP 138/89 03/29/21 12:52 Pulse Ox 98 03/29/21 11:50 Body Mass Index 25.3 Results Labs Result diagrams: 03/29/21 13:18 03/24/21 15:40 Labs: Abnormal lab results 03/29/21 Range/Units 13:18 WBC 11.1 H (4.8-10.8) X10*3/uL Neut % (Auto) 77.9 H (45-73) % Lymph % (Auto) 11.7 L (20-40) % Absolute Neuts (auto) 8.63 H (2.0-8.3) x10*3/uL Short CBC 03/29/21 Range/Units 13:18 WBC 11.1 H (4.8-10.8) X10*3/uL Hgb 14.4 (14.0-18.0) g/dl Hct 42.9 (42.0-52.0) % Plt Count 169 (160-400) X10*3/uL All other labs normal. Assessment and Plan pt had prior ECT with out any complications. vitals stable throughout. no indications of respiratory issues, saturations high 90,s during and after procedure. pt saturation when seen 98% without any labored breathing. aspiration not likely. any anesthesia complication is not likely. pt left PACU with stable vitals before being transferred. onset of symtoms according hours after.
[2021-03-29 13:42] LABS: Alanine Aminotransferase 16 U/L (0-40); Alkaline Phosphatase 94 U/L (39-117); Anion Gap 13 (12-20); Aspartate Amino Transferase 13 U/L (5-37); Bilirubin Total 0.3 mg/dL (0.0-1.0); Blood Urea Nitrogen 8 mg/dL (9-16); Calcium 9.1 mg/dL (8.4-10.2); Carbon Dioxide 25 mmol/L (22-29); Chloride 109 mmol/L (96-108); Creatinine Clr Calc Pharmacy 88.5; Estimated Glomerular Filt Rate > 60; Glucose Random 95 mg/dL (60-115); Potassium 3.7 mmol/L (3.3-5.1); Sodium 143 mmol/L (135-145); Total Protein 6.9 g/dL (6.5-8.0)
[2021-03-29] MEDS: LORazepam 1 MG TABLET 2 MG PO ×3 (13:59→20:37)
[2021-03-29] MEDS: Enoxaparin Sodium 40 MG/0.4 ML SYRINGE SUBCUT (15:20)
--- NOTE | 2021-03-29 15:34 | HO.PSYCHPN ---
Subjective Subjective Date of Service: 03/29/21 Reason For Visit: Depression Subjective Notes: Section 8 Interim History: Pt had second ECT today. Pt return to unit, reported sore throat, did need some reminder as to where he is, month, which is not uncommon after ECT. He was noted to be talking more, less monosyllabic. He reports feeling okay. He developed fever 103. No cough. No hOTN, RR<22, no difficulty breathing. reports dull pain around waist. CBC, chest Xray, CMP ordered, hospitalist consult sent- adding lactic acid, blood culture, ID consult Medication Compliance: Yes Side effects from medications: No Attending Groups: No Review of Systems Review of Systems Unable to assess, patient does not talk Yes Unobtainable due to mental status Mental Status Exam Mental Status Exam Narrative: Appearance: casually groomed, fair hygiene in NAD Behavior:smiles at times psychomotor:less retardation Speech: monosylabic, clear, minimally spontaneous Thought process:appropriate response to question with single words, no loose associations Thought content:wanting to known how long he has been in this condition- catatonia, no overt delusional Mood: okay Affect: brightens at times SI:denies HI:denies VH/AH:unable to respond Delusions:no overt delusional content, but internally preoccupied Insight/judgment:impaired x 2 Memory/cog:alert, oriented to place, month, date, year. Diagnostics Vital Signs (24Hr): Vital Signs - 24 hr 03/28/21 22:15 03/29/21 06:00 03/29/21 06:45 Temperature 98.8 F 98.4 F 98.4 F Pulse Rate 103 H 87 87 Respiratory Rate 18 18 Blood Pressure 112/55 L 126/64 126/64 Pulse Oximetry 95 99 99 03/29/21 07:12 03/29/21 08:52 03/29/21 08:57 Temperature 99.4 F 98.7 F Pulse Rate 88 99 96 Respiratory Rate 16 16 18 Blood Pressure 128/79 143/83 H 138/88 Pulse Oximetry 95 94 97 03/29/21 09:02 03/29/21 09:07 03/29/21 09:22 Temperature 98.7 F Pulse Rate 102 H 102 H 92 Respiratory Rate 17 17 18 Blood Pressure 150/91 H 143/83 H 144/92 H Pulse Oximetry 95 94 99 03/29/21 10:05 03/29/21 11:50 03/29/21 12:52 Temperature 99.2 F 99.6 F 103.5 F H Pulse Rate 96 100 121 H Respiratory Rate 14 14 Blood Pressure 137/87 131/84 138/89 Pulse Oximetry 95 98 03/29/21 13:56 Temperature 102.2 F H Pulse Rate Respiratory Rate 18 Blood Pressure Pulse Oximetry 95 Body Mass Index 25.3 Labs Results: 03/29/21 13:18 03/29/21 13:18 Labs: Laboratory Results - last 48 hr 03/29/21 03/29/21 03/29/21 13:18 13:18 13:18 WBC 11.1 H RBC 5.12 Hgb 14.4 Hct 42.9 MCV 83.8 MCH 28.1 MCHC 33.6 RDW 11.9 Plt Count 169 MPV 10.6 Immature Gran % (Auto) 0.3 Neut % (Auto) 77.9 H Lymph % (Auto) 11.7 L [place] % (Auto) 9.7 Eos % (Auto) 0.1 Baso % (Auto) 0.3 Lymph # (Auto) 1.3 [place] # (Auto) 1.1 Eos # (Auto) 0.0 Baso # (Auto) 0.0 Abs Immat Gran (auto) 0.03 Absolute Neuts (auto) 8.63 H Absolute Nucleated RBC 0.000 Nucleated RBC % (auto) 0.0 D-Dimer 386 Sodium 143 Potassium 3.7 Chloride 109 H Carbon Dioxide 25 Anion Gap 13 BUN 8 L Creatinine 1.00 Estim Creat Clear Calc 88.5 Estimated GFR > 60 Random Glucose 95 Calcium 9.1 Total Bilirubin 0.3 AST 13 ALT 16 Alkaline Phosphatase 94 Total Creatine Kinase 312 H D Total Protein 6.9 Albumin 4.0 Imaging Radiology Impressions: ITS Impressions Chest X-Ray 03/29/21 14:21 IMPRESSION: No acute disease. Medications Medications Current Medications Acetaminophen (Acetaminophen 325 Mg Tablet) 650 mg PO Q6H PRN PRN Reason: Headache/Pain Mild Scale (1-3) Last Admin: 03/29/21 13:05 Dose: 650 mg Documented by: Acetaminophen (Acetaminophen 325 Mg Tablet) 650 mg PO ONCE PRN PRN Reason: Pain, Mild (Pain Scale 1-3) Al Hydroxide/Mg Hydroxide (Magnesium Hydrox/Alum Hydrox 30 Ml Oral.Susp) 30 ml PO Q6H PRN PRN Reason: Heartburn/Nausea Enoxaparin Sodium (Enoxaparin Sodium 40 Mg/0.4 Ml Syringe) 40 mg SUBCUT Q24H [facility] Last Admin: 03/29/21 15:20 Dose: 40 mg Documented by: Hydroxyzine HCl (Hydroxyzine Hcl 25 Mg Tablet) 25 mg PO BEDTIME PRN PRN Reason: Anxiety Lorazepam (Lorazepam 1 Mg Tablet) 2 mg PO QID [facility] Last Admin: 03/29/21 13:59 Dose: 2 mg Documented by: Magnesium Hydroxide (Milk Of Magnesia 30 Ml Oral.Susp) 30 ml PO DAILY PRN PRN Reason: Constipation Olanzapine (Olanzapine 2.5 Mg Tablet) 2.5 mg PO BEDTIME [facility] Last Admin: 03/28/21 22:03 Dose: 2.5 mg Documented by: Ondansetron HCl (Ondansetron Hcl 4 Mg/2 Ml Vial) 4 mg IVPUSH ONCE PRN PRN Reason: Nausea and Vomiting Ondansetron HCl (Ondansetron Hcl 4 Mg/2 Ml Vial) 4 mg IVPUSH ONCE PRN PRN Reason: Nausea and Vomiting Oxycodone HCl (Oxycodone Hcl Immed Release 5 Mg Tablet) 5 mg PO ONCE PRN PRN Reason: Pain, Severe (Pain Scale 7-10) Oxycodone HCl (Oxycodone Hcl Immed Release 5 Mg Tablet) 10 mg PO ONCE PRN PRN Reason: Pain, Severe (Pain Scale 7-10) Trazodone HCl (Trazodone Hcl 50 Mg Tablet) 50 mg PO BEDTIME PRN PRN Reason: Insomnia Allergies Allergies Allergy/AdvReac Type Severity Reaction Status Date / Time No Known Allergies Allergy Unverified 03/23/21 21:09 Assessment & Plan Assessment & Plan (1) Catatonia: Status: Acute Code(s): F06.1 - Catatonic disorder due to known physiological condition Assessment and Plan: Mr. Carcamo is a 30 year-old male admitted on Section 8 with catatonia for ECT. 03/29- Post ECT febrile 103, chest xray neg, CBC w/diff (slight elevation of WBC 11), hospitalist consult pending- added CT chest, lactid acid, blood culture. No hypotension, RR<22, no respiratory distress. Pt more verbal, moving more, some confusion as to where he is, which is common after ECT but no gross signs of delirium or AMS. some slight progress in terms of s/s of catatonia. PLAN: 1. Continue ECT 2. Hospitalist to follow re: febrile, elevation of WBC, latic acid, blood culture 3. continue ativan 2mg PO QID I spent minutes with the patient and/or on the patient floor today, greater than?50% of which was spent counseling/coordinating care. Reason for contiued inpatient stay Substantial Risk for: inability to function
[2021-03-29 15:53] LABS: Lactic Acid 1.8 mmol/L (0.5-2.0)
--- NOTE | 2021-03-29 16:28 | P.PNIM_ITS ---
Subjective Subjective Date of Service: 03/29/21 Interval History: fever Consult was called: Because of fever post ECT. Review of Systems Discussed with the psych Service patient is can a tonic and received ECT after that as per the psych and my back conversation with the patient patient seems more converse able and answering simple questions and following simple commands, denies any chest pain or shortness of breath or abdominal pain or cough or urinary symptoms or diarrhea or nausea or vomiting. Denies any weakness or numbness or headache or dizziness. Physical Exam Vital Signs: Vital Signs: Last Vital Signs Temp 99.9 F 03/29/21 16:05 Pulse 100 03/29/21 16:05 Resp 18 03/29/21 16:05 BP 120/71 03/29/21 16:05 Pulse Ox 94 03/29/21 16:05 Body Mass Index 25.3 Physical exam: Appearance: Alert.?seems imporving , knows his name , daytime and in hospital - as per psych seems better before ect -he was mute.? Eyes: Pupils equal, round and reactive to light.? Sclera nonicteric.? ENT: Pharynx normal.? Moist mucous membranes. cvs: rrr, [id number] , no murmur res: clear to auscultation ,no rhonchii or wheezing abd: no rebound or guarding ,nt, bs present. ext pulses present , no cyanosis ,Gait well balanced well coordinated. neuro: axo3 , nonfocal. eomi, perrla Objective Data Active Medications Acetaminophen (Acetaminophen 325 Mg Tablet) 650 mg PO Q6H PRN PRN Reason: Headache/Pain Mild Scale (1-3) Last Admin: 03/29/21 13:05 Dose: 650 mg Documented by: MARCELINO Acetaminophen (Acetaminophen 325 Mg Tablet) 650 mg PO ONCE PRN PRN Reason: Pain, Mild (Pain Scale 1-3) Al Hydroxide/Mg Hydroxide (Magnesium Hydrox/Alum Hydrox 30 Ml Oral.Susp) 30 ml PO Q6H PRN PRN Reason: Heartburn/Nausea Enoxaparin Sodium (Enoxaparin Sodium 40 Mg/0.4 Ml Syringe) 40 mg SUBCUT Q24H [facility] Last Admin: 03/29/21 15:20 Dose: 40 mg Documented by: MELANIA Hydroxyzine HCl (Hydroxyzine Hcl 25 Mg Tablet) 25 mg PO BEDTIME PRN PRN Reason: Anxiety Lorazepam (Lorazepam 1 Mg Tablet) 2 mg PO QID [facility] Last Admin: 03/29/21 13:59 Dose: 2 mg Documented by: MARCELINO Magnesium Hydroxide (Milk Of Magnesia 30 Ml Oral.Susp) 30 ml PO DAILY PRN PRN Reason: Constipation Olanzapine (Olanzapine 2.5 Mg Tablet) 2.5 mg PO BEDTIME [facility] Last Admin: 03/28/21 22:03 Dose: 2.5 mg Documented by: JOCELYN Ondansetron HCl (Ondansetron Hcl 4 Mg/2 Ml Vial) 4 mg IVPUSH ONCE PRN PRN Reason: Nausea and Vomiting Ondansetron HCl (Ondansetron Hcl 4 Mg/2 Ml Vial) 4 mg IVPUSH ONCE PRN PRN Reason: Nausea and Vomiting Oxycodone HCl (Oxycodone Hcl Immed Release 5 Mg Tablet) 5 mg PO ONCE PRN PRN Reason: Pain, Severe (Pain Scale 7-10) Oxycodone HCl (Oxycodone Hcl Immed Release 5 Mg Tablet) 10 mg PO ONCE PRN PRN Reason: Pain, Severe (Pain Scale 7-10) Trazodone HCl (Trazodone Hcl 50 Mg Tablet) 50 mg PO BEDTIME PRN PRN Reason: Insomnia Labs CBC & Chem 7: 03/29/21 13:18 03/29/21 13:18 Labs: Laboratory Results - last 24 hr 03/29/21 03/29/21 03/29/21 13:18 13:18 13:18 MCV 83.8 MCH 28.1 MCHC 33.6 RDW 11.9 Plt Count 169 MPV 10.6 Immature Gran % (Auto) 0.3 Neut % (Auto) 77.9 H Lymph % (Auto) 11.7 L [place] % (Auto) 9.7 Eos % (Auto) 0.1 Baso % (Auto) 0.3 Lymph # (Auto) 1.3 [place] # (Auto) 1.1 Eos # (Auto) 0.0 Baso # (Auto) 0.0 Abs Immat Gran (auto) 0.03 Absolute Neuts (auto) 8.63 H Absolute Nucleated RBC 0.000 Nucleated RBC % (auto) 0.0 D-Dimer 386 Anion Gap 13 Estim Creat Clear Calc 88.5 Estimated GFR > 60 Random Glucose 95 Lactic Acid Calcium 9.1 Total Bilirubin 0.3 AST 13 ALT 16 Alkaline Phosphatase 94 Total Creatine Kinase 312 H D Total Protein 6.9 Albumin 4.0 03/29/21 15:13 MCV MCH MCHC RDW Plt Count MPV Immature Gran % (Auto) Neut % (Auto) Lymph % (Auto) [place] % (Auto) Eos % (Auto) Baso % (Auto) Lymph # (Auto) [place] # (Auto) Eos # (Auto) Baso # (Auto) Abs Immat Gran (auto) Absolute Neuts (auto) Absolute Nucleated RBC Nucleated RBC % (auto) D-Dimer Anion Gap Estim Creat Clear Calc Estimated GFR Random Glucose Lactic Acid 1.8 Calcium Total Bilirubin AST ALT Alkaline Phosphatase Total Creatine Kinase Total Protein Albumin Assessment and Plan (1) Aspiration pneumonitis: Status: Acute (2) Catatonia: Status: Acute Assessment and Plan: 1. Possible aspiration pneumonitis : Fever and tachycardia resolving wbc 11.1 Lactic acid normal, blood cultures sent Chest x-ray seems negative CT chest-? Question of right-sided aspiration Patient is clinically does not look toxic, fever resolved , tachycardia also resolving Will start the patient on p.o. Augmentin, get respiratory panel since has throat pain. Tylenol p.r.n. Monitor vital and patient clinically closely Adequate hydration encouraged Please call us back if patient has any new symptoms including significant fever, hypotension . Case was discussed with psych Miss Belinda Salgado. Quality Stroke Does the patient have a stroke diagnosis?: No VTE Prior VTE?: No VTE Risk Level:: Medical - low VTE Device Contraindication: Treatment Not Indicated VTE Drug Contraindication: Treatment Not Indicated
[2021-03-29] MEDS: Amoxicillin/Potassium Clav 875 MG TABLET PO (20:37)
[2021-03-29] MEDS: OLANZapine 2.5 MG TABLET PO (20:37)
[2021-03-30] VITALS: TEMP 37.6
[2021-03-30 04:00] VITALS: TEMP 37.4
[2021-03-30] MEDS: LORazepam 1 MG TABLET 2 MG PO ×4 (08:42→20:33)
[2021-03-30] MEDS: Amoxicillin/Potassium Clav 875 MG TABLET PO ×2 (08:42→20:33)
[2021-03-30 08:45] LABS: MANUAL DIFF FLAG NO
[2021-03-30 08:47] LABS: Basophils Percent Auto 0.2 % (0-2); Eosinophils Absolute Auto 0.1 X10*3/uL (0.0-0.4); Eosinophils Percent Auto 0.7 % (0-4); Hematocrit 39.3 % (42.0-52.0); Hemoglobin 13.1 g/dl (14.0-18.0); Imm Gran Abs Auto 0.03 X10*3/uL (0.00-0.03); Imm Gran Pct Auto 0.3 % (0.0-0.4); Lymphocytes Absolute Auto 1.9 X10*3/uL (1.2-4.9); Lymphocytes Percent Auto 22.3 % (20-40); Mean Corpuscular HGB Conc 33.3 g/dl (31.0-36.0); Mean Corpuscular Hemoglobin 27.9 pg (27.0-33.0); Mean Corpuscular Volume 83.6 fL (80.0-98.0); Mean Platelet Volume 11.3 fL (9.4-12.4); Monocytes Absolute Auto 1.1 X10*3/uL (0.1-1.2); Monocytes Percent Auto 12.4 % (2-11); Neutrophils Absolute Auto 5.57 x10*3/uL (2.0-8.3); Neutrophils Percent Auto 64.1 % (45-73); Platelet Count 177 X10*3/uL (160-400); Red Cell Distribution Width 11.9 % (11.0-16.0); White Blood Count 8.7 X10*3/uL (4.8-10.8)
--- NOTE | 2021-03-30 11:50 | P.PNIM_ITS ---
Subjective Subjective Date of Service: 03/30/21 Interval History: aspirational pneumonia Review of Systems Denies any new complaint of chest pain or shortness of breath or abdominal pain or fever or chills or nausea or vomiting Denies any cough Denies any weakness or numbness. Physical Exam Vital Signs: Vital Signs: Last Vital Signs Temp 99.4 F 03/30/21 04:00 Pulse 89 03/29/21 19:25 Resp 16 03/29/21 19:25 BP 111/63 03/29/21 19:25 Pulse Ox 95 03/29/21 19:25 Body Mass Index 25.3 Appearance: Alert.?seems imporving , knows his name , daytime? and in hospital -as per psych seems better before ect -he was mute.? Eyes: Pupils equal, round and reactive to light.? Sclera nonicteric.? ENT: Pharynx normal.? Moist mucous membranes. cvs: rrr, [id number] , no murmur res: air entry seems improving, nor ales or wheezin abd: no rebound or guarding ,nt, bs present. ext pulses present , no cyanosis ,Gait well balanced well coordinated. neuro: axo3 , nonfocal. eomi, perrla Objective Data Active Medications Acetaminophen (Acetaminophen 325 Mg Tablet) 650 mg PO Q6H PRN PRN Reason: Headache/Pain Mild Scale (1-3) Last Admin: 03/29/21 13:05 Dose: 650 mg Documented by: MARCELINO Acetaminophen (Acetaminophen 325 Mg Tablet) 650 mg PO ONCE PRN PRN Reason: Pain, Mild (Pain Scale 1-3) Al Hydroxide/Mg Hydroxide (Magnesium Hydrox/Alum Hydrox 30 Ml Oral.Susp) 30 ml PO Q6H PRN PRN Reason: Heartburn/Nausea Amoxicillin/Clavulanate Potassium (Amoxicillin/Potassium Clav 875 Mg Tablet) 875 mg PO BID [facility] Last Admin: 03/30/21 08:42 Dose: 875 mg Documented by: DANIELLE Enoxaparin Sodium (Enoxaparin Sodium 40 Mg/0.4 Ml Syringe) 40 mg SUBCUT Q24H [facility] Last Admin: 03/29/21 15:20 Dose: 40 mg Documented by: MIGUEL ANGELIP Hydroxyzine HCl (Hydroxyzine Hcl 25 Mg Tablet) 25 mg PO BEDTIME PRN PRN Reason: Anxiety Lorazepam (Lorazepam 1 Mg Tablet) 2 mg PO QID [facility] Last Admin: 03/30/21 08:42 Dose: 2 mg Documented by: DANIELLE Magnesium Hydroxide (Milk Of Magnesia 30 Ml Oral.Susp) 30 ml PO DAILY PRN PRN Reason: Constipation Olanzapine (Olanzapine 2.5 Mg Tablet) 2.5 mg PO BEDTIME [facility] Last Admin: 03/29/21 20:37 Dose: 2.5 mg Documented by: MILAGROS Ondansetron HCl (Ondansetron Hcl 4 Mg/2 Ml Vial) 4 mg IVPUSH ONCE PRN PRN Reason: Nausea and Vomiting Ondansetron HCl (Ondansetron Hcl 4 Mg/2 Ml Vial) 4 mg IVPUSH ONCE PRN PRN Reason: Nausea and Vomiting Oxycodone HCl (Oxycodone Hcl Immed Release 5 Mg Tablet) 5 mg PO ONCE PRN PRN Reason: Pain, Severe (Pain Scale 7-10) Oxycodone HCl (Oxycodone Hcl Immed Release 5 Mg Tablet) 10 mg PO ONCE PRN PRN Reason: Pain, Severe (Pain Scale 7-10) Trazodone HCl (Trazodone Hcl 50 Mg Tablet) 50 mg PO BEDTIME PRN PRN Reason: Insomnia Labs CBC & Chem 7: 03/30/21 08:17 03/29/21 13:18 Labs: Laboratory Results - last 24 hr 03/29/21 03/29/21 03/29/21 13:18 13:18 13:18 MCV 83.8 MCH 28.1 MCHC 33.6 RDW 11.9 Plt Count 169 MPV 10.6 Immature Gran % (Auto) 0.3 Neut % (Auto) 77.9 H Lymph % (Auto) 11.7 L [place] % (Auto) 9.7 Eos % (Auto) 0.1 Baso % (Auto) 0.3 Lymph # (Auto) 1.3 [place] # (Auto) 1.1 Eos # (Auto) 0.0 Baso # (Auto) 0.0 Abs Immat Gran (auto) 0.03 Absolute Neuts (auto) 8.63 H Absolute Nucleated RBC 0.000 Nucleated RBC % (auto) 0.0 D-Dimer 386 Anion Gap 13 Estim Creat Clear Calc 88.5 Estimated GFR > 60 Random Glucose 95 Lactic Acid Calcium 9.1 Total Bilirubin 0.3 AST 13 ALT 16 Alkaline Phosphatase 94 Total Creatine Kinase 312 H D Total Protein 6.9 Albumin 4.0 03/29/21 03/30/21 03/30/21 15:13 08:17 08:17 MCV 83.6 MCH 27.9 MCHC 33.3 RDW 11.9 Plt Count 177 MPV 11.3 Immature Gran % (Auto) 0.3 Neut % (Auto) 64.1 Lymph % (Auto) 22.3 [place] % (Auto) 12.4 H Eos % (Auto) 0.7 Baso % (Auto) 0.2 Lymph # (Auto) 1.9 [place] # (Auto) 1.1 Eos # (Auto) 0.1 Baso # (Auto) 0.0 Abs Immat Gran (auto) 0.03 Absolute Neuts (auto) 5.57 Absolute Nucleated RBC 0.000 Nucleated RBC % (auto) 0.0 D-Dimer Anion Gap Estim Creat Clear Calc Estimated GFR Random Glucose Lactic Acid 1.8 Calcium Total Bilirubin AST ALT Alkaline Phosphatase Total Creatine Kinase 208 H Total Protein Albumin Assessment and Plan (1) Aspiration pneumonitis: Status: Acute Assessment and Plan: 1. Possible aspiration pneumonitis : Fever and tachycardia resolved.no new symptoms wbc 11.1,Lactic acid normal, blood cultures pending, res panel and throat cultures ordered. Chest x-ray seems negative CT chest-?? Question of right-sided aspiration Patient is clinically does not look toxic, fever resolved , tachycardia also resolving on p.o. Augmentin, get respiratory panel since has throat pain. Tylenol p.r.n. Monitor vital and patient clinically closely Adequate hydration encouraged follow up ID eval Case was discussed with psych Miss Belinda Salgado. With sign off, call us back if any questions. Quality Stroke Does the patient have a stroke diagnosis?: No VTE Prior VTE?: No VTE Risk Level:: Medical - low VTE Device Contraindication: Treatment Not Indicated VTE Drug Contraindication: Treatment Not Indicated
--- NOTE | 2021-03-30 12:47 | P.CNID_ITS ---
History of Present Illness Data of Consult Service Date: 03/30/21 Requesting physician: Martin Godoy Primary Care Provider: Unknown Physician HPI Reason for consult: fever of unknown origin He presents to hospital with catatonia and was given ECT for depression. He had developed temperature to 102-103 after. He has blood cultures pending He has CXR unremarkable but CT chest right infiltrate/ He feels well and is eating and has no complaints Review of Systems Review of Systems: Yes all other systems are reviewed and are negative [facility] Family History Family history: reviewed and not pertinent Social History Social History Household Members: Family Housing: House Patient Tobacco Use Status: Never used Tobacco service: No Sexual orientation: Did not discuss Meds Allergies Allergy/AdvReac Type Severity Reaction Status Date / Time No Known Allergies Allergy Unverified 03/23/21 21:09 Active Medications: Current Medications Acetaminophen (Acetaminophen 325 Mg Tablet) 650 mg PO Q6H PRN PRN Reason: Headache/Pain Mild Scale (1-3) Last Admin: 03/29/21 13:05 Dose: 650 mg Documented by: Acetaminophen (Acetaminophen 325 Mg Tablet) 650 mg PO ONCE PRN PRN Reason: Pain, Mild (Pain Scale 1-3) Al Hydroxide/Mg Hydroxide (Magnesium Hydrox/Alum Hydrox 30 Ml Oral.Susp) 30 ml PO Q6H PRN PRN Reason: Heartburn/Nausea Amoxicillin/Clavulanate Potassium (Amoxicillin/Potassium Clav 875 Mg Tablet) 875 mg PO BID [facility] Last Admin: 03/30/21 08:42 Dose: 875 mg Documented by: Enoxaparin Sodium (Enoxaparin Sodium 40 Mg/0.4 Ml Syringe) 40 mg SUBCUT Q24H [facility] Last Admin: 03/29/21 15:20 Dose: 40 mg Documented by: Hydroxyzine HCl (Hydroxyzine Hcl 25 Mg Tablet) 25 mg PO BEDTIME PRN PRN Reason: Anxiety Lorazepam (Lorazepam 1 Mg Tablet) 2 mg PO QID [facility] Last Admin: 03/30/21 08:42 Dose: 2 mg Documented by: Magnesium Hydroxide (Milk Of Magnesia 30 Ml Oral.Susp) 30 ml PO DAILY PRN PRN Reason: Constipation Olanzapine (Olanzapine 2.5 Mg Tablet) 2.5 mg PO BEDTIME [facility] Last Admin: 03/29/21 20:37 Dose: 2.5 mg Documented by: Ondansetron HCl (Ondansetron Hcl 4 Mg/2 Ml Vial) 4 mg IVPUSH ONCE PRN PRN Reason: Nausea and Vomiting Ondansetron HCl (Ondansetron Hcl 4 Mg/2 Ml Vial) 4 mg IVPUSH ONCE PRN PRN Reason: Nausea and Vomiting Oxycodone HCl (Oxycodone Hcl Immed Release 5 Mg Tablet) 5 mg PO ONCE PRN PRN Reason: Pain, Severe (Pain Scale 7-10) Oxycodone HCl (Oxycodone Hcl Immed Release 5 Mg Tablet) 10 mg PO ONCE PRN PRN Reason: Pain, Severe (Pain Scale 7-10) Trazodone HCl (Trazodone Hcl 50 Mg Tablet) 50 mg PO BEDTIME PRN PRN Reason: Insomnia Physical Exam Vital Signs: Vital Signs: Last Vital Signs Temp 99.4 F 03/30/21 04:00 Pulse 89 03/29/21 19:25 Resp 16 03/29/21 19:25 BP 111/63 03/29/21 19:25 Pulse Ox 95 03/29/21 19:25 Body Mass Index 25.3 Const: General: cooperative Orientation/consciousness: patient oriented x3 Eyes: General: appearance normal, both eyes and all related structures Resp: Effort & Inspection: normal respiratory effort Cardio: Rate: regular rate Rhythm: regular rhythm GI: Palpation (GI): Soft to palpation and nontender Skin: General skin exam: no rashes or lesions noted Neuro: General: patient oriented x3 Extrem: General: Yes normal to inspection Results Labs CBC & Chem 7: 04/11/21 15:44 04/11/21 15:44 Labs: Short CBC 03/29/21 03/30/21 Range/Units 13:18 08:17 WBC 11.1 H 8.7 (4.8-10.8) X10*3/uL Hgb 14.4 13.1 L (14.0-18.0) g/dl Hct 42.9 39.3 L (42.0-52.0) % Plt Count 169 177 (160-400) X10*3/uL BMP 03/29/21 13:18 Sodium 143 Potassium 3.7 Chloride 109 H Carbon Dioxide 25 BUN 8 L Creatinine 1.00 Calcium 9.1 Cardiac Enzymes 03/29/21 03/30/21 Range/Units 13:18 08:17 Total Creatine Kinase 312 H D 208 H (38-174) U/L Liver Function 03/29/21 Range/Units 13:18 Total Bilirubin 0.3 (0.0-1.0) mg/dL AST 13 (5-37) U/L ALT 16 (0-40) U/L Alkaline Phosphatase 94 (39-117) U/L Albumin 4.0 (3.5-5.0) g/dL Assessment and Plan (1) Fever of unknown origin: Status: Deleted He has had fever and signs of infiltrate on right lung He has no signs of illness at this time He has had recent ECT Would give po Augmentin for 7 day total Check nares MRSA Consider HIV testing
--- NOTE | 2021-03-30 13:20 | HO.PSYCHPN ---
Subjective Subjective Date of Service: 03/30/21 Reason For Visit: Depression Subjective Notes: Section 8 Interim History: Pt increasingly more talkative. He reports less sore throat. He reports he is sleeping better. He reports feeling okay. He reports less muscleaches. He denies SI/HI. Some psychomotor retardation noted, less monosyllabic but poverty of speech. Medication Compliance: Yes Side effects from medications: No Attending Groups: No Review of Systems Review of Systems Denies any new complaint of chest pain or shortness of breath or abdominal pain or fever or chills or nausea or vomiting Denies any cough Denies any weakness or numbness. Yes all other systems are reviewed and are negative and Unobtainable due to mental status Mental Status Exam Mental Status Exam Narrative: Appearance: casually groomed, fair hygiene in NAD Behavior:smiles at times psychomotor:less retardation Speech: monosylabic, clear, minimally spontaneous Thought process:appropriate response to question with single words, no loose associations Thought content:wanting to known how long he has been in this condition- catatonia, no overt delusional Mood: okay Affect: brightens at times SI:denies HI:denies VH/AH:unable to respond Delusions:no overt delusional content, but internally preoccupied Insight/judgment:impaired x 2 Memory/cog:alert, oriented to place, month, date, year. Diagnostics Vital Signs (24Hr): Vital Signs - 24 hr 03/29/21 19:25 03/30/21 00:00 03/30/21 04:00 Temperature 99.6 F 99.4 F Pulse Rate 89 Respiratory Rate 16 Blood Pressure 111/63 Pulse Oximetry 95 03/30/21 16:00 Temperature 99.2 F Pulse Rate 105 H Respiratory Rate 16 Blood Pressure 117/71 Pulse Oximetry 96 Body Mass Index 25.3 Labs Results: 03/30/21 08:17 03/29/21 13:18 Labs: Laboratory Results - last 48 hr 03/29/21 03/29/21 03/29/21 13:18 13:18 13:18 WBC 11.1 H RBC 5.12 Hgb 14.4 Hct 42.9 MCV 83.8 MCH 28.1 MCHC 33.6 RDW 11.9 Plt Count 169 MPV 10.6 Immature Gran % (Auto) 0.3 Neut % (Auto) 77.9 H Lymph % (Auto) 11.7 L [place] % (Auto) 9.7 Eos % (Auto) 0.1 Baso % (Auto) 0.3 Lymph # (Auto) 1.3 [place] # (Auto) 1.1 Eos # (Auto) 0.0 Baso # (Auto) 0.0 Abs Immat Gran (auto) 0.03 Absolute Neuts (auto) 8.63 H Absolute Nucleated RBC 0.000 Nucleated RBC % (auto) 0.0 D-Dimer 386 Sodium 143 Potassium 3.7 Chloride 109 H Carbon Dioxide 25 Anion Gap 13 BUN 8 L Creatinine 1.00 Estim Creat Clear Calc 88.5 Estimated GFR > 60 Random Glucose 95 Lactic Acid Calcium 9.1 Total Bilirubin 0.3 AST 13 ALT 16 Alkaline Phosphatase 94 Total Creatine Kinase 312 H D Total Protein 6.9 Albumin 4.0 03/29/21 03/30/21 03/30/21 15:13 08:17 08:17 WBC 8.7 RBC 4.70 Hgb 13.1 L Hct 39.3 L MCV 83.6 MCH 27.9 MCHC 33.3 RDW 11.9 Plt Count 177 MPV 11.3 Immature Gran % (Auto) 0.3 Neut % (Auto) 64.1 Lymph % (Auto) 22.3 [place] % (Auto) 12.4 H Eos % (Auto) 0.7 Baso % (Auto) 0.2 Lymph # (Auto) 1.9 [place] # (Auto) 1.1 Eos # (Auto) 0.1 Baso # (Auto) 0.0 Abs Immat Gran (auto) 0.03 Absolute Neuts (auto) 5.57 Absolute Nucleated RBC 0.000 Nucleated RBC % (auto) 0.0 D-Dimer Sodium Potassium Chloride Carbon Dioxide Anion Gap BUN Creatinine Estim Creat Clear Calc Estimated GFR Random Glucose Lactic Acid 1.8 Calcium Total Bilirubin AST ALT Alkaline Phosphatase Total Creatine Kinase 208 H Total Protein Albumin Imaging Radiology Impressions: ITS Impressions Chest X-Ray 03/29/21 14:21 IMPRESSION: No acute disease. Chest CT 03/29/21 15:36 IMPRESSION: 1. Coarsening bronchovascular markings right lower lobe with 1 bronchiolar mucous plugging and some fine tree-in-bud acinar opacities suggesting sequela from aspiration. Subsegmental atelectasis left posterior base. Trace right effusion. No adenopathy. 2. No lobar or segmental airspace consolidation. 3. Solitary nodule right middle lobe under 4 mm. No additional follow-up required in low risk patient. Medications Medications Current Medications Acetaminophen (Acetaminophen 325 Mg Tablet) 650 mg PO Q6H PRN PRN Reason: Headache/Pain Mild Scale (1-3) Last Admin: 03/29/21 13:05 Dose: 650 mg Documented by: Acetaminophen (Acetaminophen 325 Mg Tablet) 650 mg PO ONCE PRN PRN Reason: Pain, Mild (Pain Scale 1-3) Al Hydroxide/Mg Hydroxide (Magnesium Hydrox/Alum Hydrox 30 Ml Oral.Susp) 30 ml PO Q6H PRN PRN Reason: Heartburn/Nausea Amoxicillin/Clavulanate Potassium (Amoxicillin/Potassium Clav 875 Mg Tablet) 875 mg PO BID [facility] Last Admin: 03/30/21 08:42 Dose: 875 mg Documented by: Enoxaparin Sodium (Enoxaparin Sodium 40 Mg/0.4 Ml Syringe) 40 mg SUBCUT Q24H [facility] Last Admin: 03/30/21 14:17 Dose: 40 mg Documented by: Hydroxyzine HCl (Hydroxyzine Hcl 25 Mg Tablet) 25 mg PO BEDTIME PRN PRN Reason: Anxiety Lorazepam (Lorazepam 1 Mg Tablet) 2 mg PO QID [facility] Last Admin: 03/30/21 16:57 Dose: 2 mg Documented by: Magnesium Hydroxide (Milk Of Magnesia 30 Ml Oral.Susp) 30 ml PO DAILY PRN PRN Reason: Constipation Olanzapine (Olanzapine 2.5 Mg Tablet) 2.5 mg PO BEDTIME [facility] Last Admin: 03/29/21 20:37 Dose: 2.5 mg Documented by: Ondansetron HCl (Ondansetron Hcl 4 Mg/2 Ml Vial) 4 mg IVPUSH ONCE PRN PRN Reason: Nausea and Vomiting Ondansetron HCl (Ondansetron Hcl 4 Mg/2 Ml Vial) 4 mg IVPUSH ONCE PRN PRN Reason: Nausea and Vomiting Oxycodone HCl (Oxycodone Hcl Immed Release 5 Mg Tablet) 5 mg PO ONCE PRN PRN Reason: Pain, Severe (Pain Scale 7-10) Oxycodone HCl (Oxycodone Hcl Immed Release 5 Mg Tablet) 10 mg PO ONCE PRN PRN Reason: Pain, Severe (Pain Scale 7-10) Trazodone HCl (Trazodone Hcl 50 Mg Tablet) 50 mg PO BEDTIME PRN PRN Reason: Insomnia Allergies Allergies Allergy/AdvReac Type Severity Reaction Status Date / Time No Known Allergies Allergy Unverified 03/23/21 21:09 Assessment & Plan Assessment & Plan (1) Fever of unknown origin: Status: Deleted Code(s): R50.9 - Fever, unspecified Assessment and Plan: He has had fever and signs of infiltrate on right lung He has no signs of illness at this time He has had recent ECT (2) Bipolar I disorder depressed with catatonic features: Status: Acute Code(s): F31.30 - Bipolar disorder, current episode depressed, mild or moderate severity, unspecified; F06.1 - Catatonic disorder due to known physiological condition Assessment and Plan: Mr. Carcamo is a 30 year-old male admitted on Section 8 from [facility] for tx of catatonia. Pt's has presented with symptoms of congregation preoccupation followed by catatonia since 05/2020. 03/30- speech more spontaneous, fluent, less monosyllabic, less psychomotor retardation, no acute distress PLAN 1. Catatonia- contiune ECT- hold ECT on 03/31 due to aspiration pneumonia 2. Aspiration Pneumonia- on aumentin for 7 days, no hypotension, no signs of sepsis, no SOB, o2sat >97% on room air 3. continue ativan 4. father-next of kin informed of pneumonia, tx plan. I spent minutes with the patient and/or on the patient floor today, greater than?50% of which was spent counseling/coordinating care. Reason for contiued inpatient stay Substantial Risk for: inability to function
[2021-03-30] MEDS: Enoxaparin Sodium 40 MG/0.4 ML SYRINGE SUBCUT (14:17)
[2021-03-30 16:00] VITALS: BP 117/71; PULSE 105; RESP 16; TEMP 37.3; O2SAT 96
[2021-03-30] MEDS: Acetaminophen 325 MG TABLET 650 MG PO (19:03)
[2021-03-30 20:00] VITALS: BP 128/63; PULSE 115; RESP 18; TEMP 38; O2SAT 96
[2021-03-30] MEDS: OLANZapine 2.5 MG TABLET PO (21:18)
[2021-03-30] MEDS: Ibuprofen 600 MG TABLET PO (21:19)
[2021-03-30 22:55] VITALS: TEMP 36.7
[2021-03-31] VITALS (7 sets, daily range): BP systolic 115–135; BP diastolic 61–86; PULSE 58–110; RESP 16–18; TEMP 36.6–37.2; O2SAT 95–97
[2021-03-31] MEDS: LORazepam 1 MG TABLET 2 MG PO ×4 (08:38→20:53)
[2021-03-31] MEDS: Amoxicillin/Potassium Clav 875 MG TABLET PO ×2 (08:38→20:53)
--- NOTE | 2021-03-31 12:05 | P.PNPSI_ITS ---
Subjective Subjective Date of Service: 03/31/21 Reason For Visit: Depression Subjective Notes: Section 8 Interim History: Pt increasingly more talkative. He reports feeling better physically. He denies any muscle pain. He reports less sore throat. He reports he is sleeping better. He reports trying to eat as much as I can. He has been ambulating more. He denies SI/HI. Some psychomotor retardation noted, less monosyllabic but poverty of speech. ECT postpone due to aspiration pneumonia Afebrile today without fever reducing medications in 24 hrs. Medication Compliance: Yes Side effects from medications: No Review of Systems Review of Systems Denies any new complaint of chest pain or shortness of breath or abdominal pain or fever or chills or nausea or vomiting Denies any cough Denies any weakness or numbness. Yes all other systems are reviewed and are negative and Unobtainable due to mental status Mental Status Exam Mental Status Exam Narrative: Appearance: casually groomed, fair hygiene in NAD Behavior:smiles at times, psychomotor:less retardation Speech: clear, increasingly more spontaneous, soft tone, less delayed response. Thought process:appropriate response to question with single words, no loose associations Thought content: no overt psychosis, feeling better, trying to understands what has happened to him for the past several months. Mood: okay Affect: brightens at times SI:denies HI:denies VH/AH:none Delusions:none Insight/judgment:improving Memory/cog:alert, oriented to place, month, date, year. Patient Appearance: Unkempt Patient Behavior: Dependent Behavior Comments: Catatonic Ability to Follow Directions: Poor Diagnostics Vital Signs (24Hr): Vital Signs - 24 hr 03/30/21 16:00 03/30/21 20:00 03/30/21 22:55 Temperature 99.2 F 100.4 F 98.1 F Pulse Rate 105 H 115 H Respiratory Rate 16 18 Blood Pressure 117/71 128/63 Pulse Oximetry 96 96 03/31/21 00:00 03/31/21 04:00 03/31/21 05:45 Temperature 98.0 F 98.5 F 98.5 F Pulse Rate 58 58 Respiratory Rate 16 18 Blood Pressure 115/61 115/61 Pulse Oximetry 96 96 03/31/21 13:57 Temperature 98.9 F Pulse Rate 99 Respiratory Rate 16 Blood Pressure 134/81 Pulse Oximetry 97 Body Mass Index 25.3 Labs Results: 03/30/21 08:17 03/29/21 13:18 Labs: Laboratory Results - last 48 hr 03/29/21 03/30/21 03/30/21 15:13 08:17 08:17 WBC 8.7 RBC 4.70 Hgb 13.1 L Hct 39.3 L MCV 83.6 MCH 27.9 MCHC 33.3 RDW 11.9 Plt Count 177 MPV 11.3 Immature Gran % (Auto) 0.3 Neut % (Auto) 64.1 Lymph % (Auto) 22.3 [place] % (Auto) 12.4 H Eos % (Auto) 0.7 Baso % (Auto) 0.2 Lymph # (Auto) 1.9 [place] # (Auto) 1.1 Eos # (Auto) 0.1 Baso # (Auto) 0.0 Abs Immat Gran (auto) 0.03 Absolute Neuts (auto) 5.57 Absolute Nucleated RBC 0.000 Nucleated RBC % (auto) 0.0 Lactic Acid 1.8 Total Creatine Kinase 208 H Imaging Radiology Impressions: ITS Impressions Chest X-Ray 03/29/21 14:21 IMPRESSION: No acute disease. Chest CT 03/29/21 15:36 IMPRESSION: 1. Coarsening bronchovascular markings right lower lobe with 1 bronchiolar mucous plugging and some fine tree-in-bud acinar opacities suggesting sequela from aspiration. Subsegmental atelectasis left posterior base. Trace right effusion. No adenopathy. 2. No lobar or segmental airspace consolidation. 3. Solitary nodule right middle lobe under 4 mm. No additional follow-up required in low risk patient. Medications Medications Current Medications Acetaminophen (Acetaminophen 325 Mg Tablet) 650 mg PO Q6H PRN PRN Reason: Headache/Pain Mild Scale (1-3) Last Admin: 03/30/21 19:03 Dose: 650 mg Documented by: Acetaminophen (Acetaminophen 325 Mg Tablet) 650 mg PO ONCE PRN PRN Reason: Pain, Mild (Pain Scale 1-3) Al Hydroxide/Mg Hydroxide (Magnesium Hydrox/Alum Hydrox 30 Ml Oral.Susp) 30 ml PO Q6H PRN PRN Reason: Heartburn/Nausea Amoxicillin/Clavulanate Potassium (Amoxicillin/Potassium Clav 875 Mg Tablet) 875 mg PO BID [facility] Last Admin: 03/31/21 08:38 Dose: 875 mg Documented by: Enoxaparin Sodium (Enoxaparin Sodium 40 Mg/0.4 Ml Syringe) 40 mg SUBCUT Q24H [facility] Last Admin: 03/30/21 14:17 Dose: 40 mg Documented by: Hydroxyzine HCl (Hydroxyzine Hcl 25 Mg Tablet) 25 mg PO BEDTIME PRN PRN Reason: Anxiety Ibuprofen (Ibuprofen 600 Mg Tablet) 600 mg PO Q6H PRN PRN Reason: Fever >100.4 Lorazepam (Lorazepam 1 Mg Tablet) 2 mg PO QID [facility] Last Admin: 03/31/21 14:41 Dose: 2 mg Documented by: Magnesium Hydroxide (Milk Of Magnesia 30 Ml Oral.Susp) 30 ml PO DAILY PRN PRN Reason: Constipation Olanzapine (Olanzapine 2.5 Mg Tablet) 2.5 mg PO BEDTIME [facility] Last Admin: 03/30/21 21:18 Dose: 2.5 mg Documented by: Omeprazole (Omeprazole 40 Mg Capsule.Dr) 40 mg PO BID@0630,1630 [facility] Ondansetron HCl (Ondansetron Hcl 4 Mg/2 Ml Vial) 4 mg IVPUSH ONCE PRN PRN Reason: Nausea and Vomiting Ondansetron HCl (Ondansetron Hcl 4 Mg/2 Ml Vial) 4 mg IVPUSH ONCE PRN PRN Reason: Nausea and Vomiting Oxycodone HCl (Oxycodone Hcl Immed Release 5 Mg Tablet) 5 mg PO ONCE PRN PRN Reason: Pain, Severe (Pain Scale 7-10) Oxycodone HCl (Oxycodone Hcl Immed Release 5 Mg Tablet) 10 mg PO ONCE PRN PRN Reason: Pain, Severe (Pain Scale 7-10) Trazodone HCl (Trazodone Hcl 50 Mg Tablet) 50 mg PO BEDTIME PRN PRN Reason: Insomnia Allergies Allergies Allergy/AdvReac Type Severity Reaction Status Date / Time No Known Allergies Allergy Unverified 03/23/21 21:09 Assessment & Plan Assessment & Plan (1) Bipolar I disorder depressed with catatonic features: Status: Acute Code(s): F31.30 - Bipolar disorder, current episode depressed, mild or moderate severity, unspecified; F06.1 - Catatonic disorder due to known physiological condition (2) Aspiration pneumonitis: Status: Acute Code(s): J69.0 - Pneumonitis due to inhalation of food and vomit Assessment and Plan: On aumentin for 7 days. Assessment and Plan: Mr. Carcamo is a 30 year-old male admitted on Section 8 from [facility] for tx of catatonia. Pt's has presented with symptoms of sikh preoccupation followed by catatonia since 05/2020. 03/30- speech more spontaneous, fluent, less monosyllabic, less psychomotor retardation, no acute distress PLAN 1. Catatonia- contiune ECT- hold ECT on 03/31 due to aspiration pneumonia 2. Aspiration Pneumonia- on aumentin for 7 days, no hypotension, no signs of sepsis, no SOB, o2sat >97% on room air 3. continue ativan 4. father-next of kin informed of pneumonia, tx plan. I spent minutes with the patient and/or on the patient floor today, greater than?50% of which was spent counseling/coordinating care. Reason for contiued inpatient stay Substantial Risk for: inability to function
[2021-03-31] MEDS: Omeprazole 40 MG CAPSULE.DR PO (15:54)
[2021-03-31] MEDS: Enoxaparin Sodium 40 MG/0.4 ML SYRINGE SUBCUT (15:54)
[2021-03-31] MEDS: OLANZapine 2.5 MG TABLET PO (20:53)
[2021-03-31] MEDS: Ibuprofen 600 MG TABLET PO (20:55)
[2021-04-01 02:08] VITALS: BP 108/60; PULSE 69; RESP 16; O2SAT 97
[2021-04-01 04:00] VITALS: TEMP 36.1
[2021-04-01 06:00] VITALS: BP 118/64; PULSE 84; RESP 18; TEMP 36.8; O2SAT 97
[2021-04-01] MEDS: Amoxicillin/Potassium Clav 875 MG TABLET PO ×2 (08:42→20:41)
[2021-04-01] MEDS: LORazepam 1 MG TABLET 2 MG PO ×3 (08:42→20:41)
[2021-04-01] MEDS: Omeprazole 40 MG CAPSULE.DR PO ×2 (08:42→17:27)
--- NOTE | 2021-04-01 17:04 | P.PNPSI_ITS ---
Subjective Subjective Date of Service: 04/01/21 Reason For Visit: Depression Interim History: as per staff has been up out of his room a lot. Attended groups. Ate breakfast by himself. He sharing with some staff encouragement and support. Adherent with medications. With script writer he reports he is feeling more comfortable being out of his room. Reports that there is a lot of noise in the background, but unable to elaborate or give details on same. Aware that ongoing consideration regarding ECT. Discussed side for evaluation status and feels comfortable Not being on constant observation. Medication Compliance: Yes Side effects from medications: No Attending Groups: Intermittent Review of Systems Acute medical concerns: No Review of Systems Review of Systems Unremarkable Mental Status Exam Mental Status Exam Narrative: pleasant. Hospital clothing and improved hygiene. [place]. Affect flat. Denied depression. No SI. No HI. May have some internal preoccupation. Insight and judgment improving Diagnostics Vital Signs (24Hr): Vital Signs - 24 hr 03/31/21 19:36 03/31/21 22:21 04/01/21 02:08 Temperature 99.0 F 97.8 F Pulse Rate 103 H 69 Respiratory Rate 18 16 Blood Pressure 124/76 108/60 Pulse Oximetry 95 97 04/01/21 04:00 04/01/21 06:00 Temperature 97 F 98.3 F Pulse Rate 84 Respiratory Rate 18 Blood Pressure 118/64 Pulse Oximetry 97 Body Mass Index 25.3 Labs Results: 03/30/21 08:17 03/29/21 13:18 Imaging Radiology Impressions: ITS Impressions Chest X-Ray 03/29/21 14:21 IMPRESSION: No acute disease. Chest CT 03/29/21 15:36 IMPRESSION: 1. Coarsening bronchovascular markings right lower lobe with 1 bronchiolar mucous plugging and some fine tree-in-bud acinar opacities suggesting sequela from aspiration. Subsegmental atelectasis left posterior base. Trace right effusion. No adenopathy. 2. No lobar or segmental airspace consolidation. 3. Solitary nodule right middle lobe under 4 mm. No additional follow-up required in low risk patient. Medications Medications Current Medications Acetaminophen (Acetaminophen 325 Mg Tablet) 650 mg PO Q6H PRN PRN Reason: Headache/Pain Mild Scale (1-3) Last Admin: 03/30/21 19:03 Dose: 650 mg Documented by: Acetaminophen (Acetaminophen 325 Mg Tablet) 650 mg PO ONCE PRN PRN Reason: Pain, Mild (Pain Scale 1-3) Al Hydroxide/Mg Hydroxide (Magnesium Hydrox/Alum Hydrox 30 Ml Oral.Susp) 30 ml PO Q6H PRN PRN Reason: Heartburn/Nausea Amoxicillin/Clavulanate Potassium (Amoxicillin/Potassium Clav 875 Mg Tablet) 875 mg PO BID [facility] Last Admin: 04/01/21 08:42 Dose: 875 mg Documented by: Hydroxyzine HCl (Hydroxyzine Hcl 25 Mg Tablet) 25 mg PO BEDTIME PRN PRN Reason: Anxiety Ibuprofen (Ibuprofen 600 Mg Tablet) 600 mg PO Q6H PRN PRN Reason: Fever >100.4 Last Admin: 03/31/21 20:55 Dose: 600 mg Documented by: Lorazepam (Lorazepam 1 Mg Tablet) 2 mg PO QID [facility] Last Admin: 04/01/21 08:42 Dose: 2 mg Documented by: Magnesium Hydroxide (Milk Of Magnesia 30 Ml Oral.Susp) 30 ml PO DAILY PRN PRN Reason: Constipation Olanzapine (Olanzapine 2.5 Mg Tablet) 2.5 mg PO BEDTIME [facility] Last Admin: 03/31/21 20:53 Dose: 2.5 mg Documented by: Omeprazole (Omeprazole 40 Mg Capsule.Dr) 40 mg PO BID@0630,1630 [facility] Last Admin: 04/01/21 08:42 Dose: 40 mg Documented by: Ondansetron HCl (Ondansetron Hcl 4 Mg/2 Ml Vial) 4 mg IVPUSH ONCE PRN PRN Reason: Nausea and Vomiting Ondansetron HCl (Ondansetron Hcl 4 Mg/2 Ml Vial) 4 mg IVPUSH ONCE PRN PRN Reason: Nausea and Vomiting Oxycodone HCl (Oxycodone Hcl Immed Release 5 Mg Tablet) 10 mg PO ONCE PRN PRN Reason: Pain, Severe (Pain Scale 7-10) Trazodone HCl (Trazodone Hcl 50 Mg Tablet) 50 mg PO BEDTIME PRN PRN Reason: Insomnia Allergies Allergies Allergy/AdvReac Type Severity Reaction Status Date / Time No Known Allergies Allergy Unverified 03/23/21 21:09 Assessment & Plan Assessment & Plan (1) Bipolar I disorder depressed with catatonic features: Status: Acute Code(s): F31.30 - Bipolar disorder, current episode depressed, mild or moderate severity, unspecified; F06.1 - Catatonic disorder due to known physiological condition (2) Aspiration pneumonitis: Status: Acute Code(s): J69.0 - Pneumonitis due to inhalation of food and vomit Assessment and Plan: On aumentin for 7 days. Assessment and Plan: Mr. Carcamo is a 30 year-old male admitted on Section 8 from [facility] for tx of catatonia. Pt's has presented with symptoms of confucianism preoccupation followed by catatonia since 05/2020. 03/30- speech more spontaneous, fluent, less monosyllabic, less psychomotor r etardation, no acute distress PLAN 1. Catatonia- contiune ECT- hold ECT on 03/31 due to aspiration pneumonia 2. Aspiration Pneumonia- on aumentin for 7 days, no hypotension, no signs of sepsis, no SOB, o2sat >97% on room air 3. continue ativan 4. father-next of kin informed of pneumonia, tx plan. 04/01/2021: No change to primary team's treatment plan overall, however will change observation status to 15 minute checks as doing well and mobilizing more and engaging. Will discontinue Lovenox as patient is not mobilizing and change vital signs to twice daily. I spent minutes with the patient and/or on the patient floor today, greater than?50% of which was spent counseling/coordinating care. Reason for contiued inpatient stay Substantial Risk for: inability to function
[2021-04-01 20:37] VITALS: BP 122/72; PULSE 97; TEMP 37; O2SAT 97
[2021-04-01] MEDS: OLANZapine 2.5 MG TABLET PO (20:41)
[2021-04-02] MEDS: Omeprazole 40 MG CAPSULE.DR PO (06:22)
[2021-04-02] MEDS: LORazepam 1 MG TABLET 2 MG PO ×3 (08:36→21:53)
[2021-04-02] MEDS: Amoxicillin/Potassium Clav 875 MG TABLET PO ×2 (08:36→21:55)
--- NOTE | 2021-04-02 11:48 | HO.PSYCHPN ---
Subjective Subjective Date of Service: 04/02/21 Reason For Visit: Depression Interim History: Seen by leader writer out of room and attending groups. Wearing hospital clothing and fair self-care. Evidence that he did eat breakfast in room. He does appear internally preoccupied during interview, but denies same. Reported no concerns. Denied medication questions. Feels positive being off one-to-one observation. did remind him that she he he would need re clearance for ECT. . Medication Compliance: Yes Side effects from medications: No Attending Groups: Yes Review of Systems Acute medical concerns: No Review of Systems Review of Systems Unremarkable Mental Status Exam Mental Status Exam Narrative: pleasant. Hospital clothing and improved hygiene. [place]. Affect flat. Denied depression. No SI. No HI. May have some internal preoccupation. Insight and judgment improving Diagnostics Vital Signs (24Hr): Vital Signs - 24 hr 04/01/21 20:37 Temperature 98.6 F Pulse Rate 97 Blood Pressure 122/72 Pulse Oximetry 97 Body Mass Index 25.3 Labs Results: 03/30/21 08:17 03/29/21 13:18 Imaging Radiology Impressions: ITS Impressions Chest X-Ray 03/29/21 14:21 IMPRESSION: No acute disease. Chest CT 03/29/21 15:36 IMPRESSION: 1. Coarsening bronchovascular markings right lower lobe with 1 bronchiolar mucous plugging and some fine tree-in-bud acinar opacities suggesting sequela from aspiration. Subsegmental atelectasis left posterior base. Trace right effusion. No adenopathy. 2. No lobar or segmental airspace consolidation. 3. Solitary nodule right middle lobe under 4 mm. No additional follow-up required in low risk patient. Medications Medications Current Medications Acetaminophen (Acetaminophen 325 Mg Tablet) 650 mg PO Q6H PRN PRN Reason: Headache/Pain Mild Scale (1-3) Last Admin: 03/30/21 19:03 Dose: 650 mg Documented by: Acetaminophen (Acetaminophen 325 Mg Tablet) 650 mg PO ONCE PRN PRN Reason: Pain, Mild (Pain Scale 1-3) Al Hydroxide/Mg Hydroxide (Magnesium Hydrox/Alum Hydrox 30 Ml Oral.Susp) 30 ml PO Q6H PRN PRN Reason: Heartburn/Nausea Amoxicillin/Clavulanate Potassium (Amoxicillin/Potassium Clav 875 Mg Tablet) 875 mg PO BID [facility] Last Admin: 04/02/21 08:36 Dose: 875 mg Documented by: Hydroxyzine HCl (Hydroxyzine Hcl 25 Mg Tablet) 25 mg PO BEDTIME PRN PRN Reason: Anxiety Ibuprofen (Ibuprofen 600 Mg Tablet) 600 mg PO Q6H PRN PRN Reason: Fever >100.4 Last Admin: 03/31/21 20:55 Dose: 600 mg Documented by: Lorazepam (Lorazepam 1 Mg Tablet) 2 mg PO QID [facility] Last Admin: 04/02/21 08:36 Dose: 2 mg Documented by: Magnesium Hydroxide (Milk Of Magnesia 30 Ml Oral.Susp) 30 ml PO DAILY PRN PRN Reason: Constipation Olanzapine (Olanzapine 2.5 Mg Tablet) 2.5 mg PO BEDTIME [facility] Last Admin: 04/01/21 20:41 Dose: 2.5 mg Documented by: Omeprazole (Omeprazole 40 Mg Capsule.Dr) 40 mg PO BID@0630,1630 [facility] Last Admin: 04/02/21 06:22 Dose: 40 mg Documented by: Ondansetron HCl (Ondansetron Hcl 4 Mg/2 Ml Vial) 4 mg IVPUSH ONCE PRN PRN Reason: Nausea and Vomiting Ondansetron HCl (Ondansetron Hcl 4 Mg/2 Ml Vial) 4 mg IVPUSH ONCE PRN PRN Reason: Nausea and Vomiting Oxycodone HCl (Oxycodone Hcl Immed Release 5 Mg Tablet) 10 mg PO ONCE PRN PRN Reason: Pain, Severe (Pain Scale 7-10) Trazodone HCl (Trazodone Hcl 50 Mg Tablet) 50 mg PO BEDTIME PRN PRN Reason: Insomnia Allergies Allergies Allergy/AdvReac Type Severity Reaction Status Date / Time No Known Allergies Allergy Unverified 03/23/21 21:09 Assessment & Plan Assessment & Plan (1) Bipolar I disorder depressed with catatonic features: Status: Acute Code(s): F31.30 - Bipolar disorder, current episode depressed, mild or moderate severity, unspecified; F06.1 - Catatonic disorder due to known physiological condition (2) Aspiration pneumonitis: Status: Acute Code(s): J69.0 - Pneumonitis due to inhalation of food and vomit Assessment and Plan: On aumentin for 7 days. Assessment and Plan: Mr. Carcamo is a 30 year-old male admitted on Section 8 from [facility] for tx of catatonia. Pt's has presented with symptoms of gnosticist preoccupation followed by catatonia since 05/2020. 03/30- speech more spontaneous, fluent, less monosyllabic, less psychomotor retardation, no acute distress PLAN 1. Catatonia- contiune ECT- hold ECT on 03/31 due to aspiration pneumonia 2. Aspiration Pneumonia- on aumentin for 7 days, no hypotension, no signs of sepsis, no SOB, o2sat >97% on room air 3. continue ativan 4. father-next of kin informed of pneumonia, tx plan. 04/01/2021: No change to primary team's treatment plan overall, however will change observation status to 15 minute checks as doing well and mobilizing more and engaging. Will discontinue Lovenox as patient is not mobilizing and change vital signs to twice daily. 04/02: No changes. Hospitalist consult placed for re clearance for ECT. I spent minutes with the patient and/or on the patient floor today, greater than?50% of which was spent counseling/coordinating care. Reason for contiued inpatient stay Substantial Risk for: inability to function
[2021-04-02 21:51] VITALS: BP 130/75; PULSE 78; TEMP 36.8; O2SAT 98
[2021-04-02] MEDS: OLANZapine 2.5 MG TABLET PO (21:53)
[2021-04-03 06:00] VITALS: BP 129/57; PULSE 97; TEMP 37.1; O2SAT 97
[2021-04-03] MEDS: Omeprazole 40 MG CAPSULE.DR PO ×2 (06:29→16:04)
[2021-04-03] MEDS: Amoxicillin/Potassium Clav 875 MG TABLET PO ×2 (08:56→21:37)
[2021-04-03] MEDS: LORazepam 1 MG TABLET 2 MG PO ×3 (08:56→21:37)
--- NOTE | 2021-04-03 12:19 | HO.PSYCHPN ---
Subjective Subjective Date of Service: 04/03/21 Reason For Visit: Depression Subjective Notes: Section 8 Interim History: Per nursing, pt has been much more visible, showering on his own, with brighter affect, more talkative. In terms of asp. pneumonia- pt denies SOB, afebrile, no HOTN, no throat pain or chest pain. Pt reports mood is good. He has attended some groups. His oral intake has improved, eating more spontaneously. He denies SI/HI. he denies VH/AH. Some poverty of speech still noted, ? some degree of internally preoccupied although pt responding questions appropriately without much delay. Medication Compliance: Yes Side effects from medications: No Review of Systems Review of Systems Unremarkable Yes all other systems are reviewed and are negative and Unobtainable due to mental status Diagnostics Vital Signs (24Hr): Vital Signs - 24 hr 04/02/21 21:51 04/03/21 06:00 Temperature 98.3 F 98.7 F Pulse Rate 78 97 Blood Pressure 130/75 129/57 L Pulse Oximetry 98 97 Body Mass Index 25.3 Labs Results: 03/30/21 08:17 03/29/21 13:18 Imaging Radiology Impressions: ITS Impressions Chest X-Ray 03/29/21 14:21 IMPRESSION: No acute disease. Chest CT 03/29/21 15:36 IMPRESSION: 1. Coarsening bronchovascular markings right lower lobe with 1 bronchiolar mucous plugging and some fine tree-in-bud acinar opacities suggesting sequela from aspiration. Subsegmental atelectasis left posterior base. Trace right effusion. No adenopathy. 2. No lobar or segmental airspace consolidation. 3. Solitary nodule right middle lobe under 4 mm. No additional follow-up required in low risk patient. Medications Medications Current Medications Acetaminophen (Acetaminophen 325 Mg Tablet) 650 mg PO Q6H PRN PRN Reason: Headache/Pain Mild Scale (1-3) Last Admin: 03/30/21 19:03 Dose: 650 mg Documented by: Acetaminophen (Acetaminophen 325 Mg Tablet) 650 mg PO ONCE PRN PRN Reason: Pain, Mild (Pain Scale 1-3) Al Hydroxide/Mg Hydroxide (Magnesium Hydrox/Alum Hydrox 30 Ml Oral.Susp) 30 ml PO Q6H PRN PRN Reason: Heartburn/Nausea Amoxicillin/Clavulanate Potassium (Amoxicillin/Potassium Clav 875 Mg Tablet) 875 mg PO BID [facility] Last Admin: 04/03/21 08:56 Dose: 875 mg Documented by: Hydroxyzine HCl (Hydroxyzine Hcl 25 Mg Tablet) 25 mg PO BEDTIME PRN PRN Reason: Anxiety Ibuprofen (Ibuprofen 600 Mg Tablet) 600 mg PO Q6H PRN PRN Reason: Fever >100.4 Last Admin: 03/31/21 20:55 Dose: 600 mg Documented by: Lorazepam (Lorazepam 1 Mg Tablet) 2 mg PO TID [facility] Magnesium Hydroxide (Milk Of Magnesia 30 Ml Oral.Susp) 30 ml PO DAILY PRN PRN Reason: Constipation Olanzapine (Olanzapine 2.5 Mg Tablet) 2.5 mg PO BEDTIME [facility] Omeprazole (Omeprazole 40 Mg Capsule.Dr) 40 mg PO BID@0630,1630 [facility] Last Admin: 04/03/21 06:29 Dose: 40 mg Documented by: Ondansetron HCl (Ondansetron Hcl 4 Mg/2 Ml Vial) 4 mg IVPUSH ONCE PRN PRN Reason: Nausea and Vomiting Ondansetron HCl (Ondansetron Hcl 4 Mg/2 Ml Vial) 4 mg IVPUSH ONCE PRN PRN Reason: Nausea and Vomiting Trazodone HCl (Trazodone Hcl 50 Mg Tablet) 50 mg PO BEDTIME PRN PRN Reason: Insomnia Allergies Allergies Allergy/AdvReac Type Severity Reaction Status Date / Time No Known Allergies Allergy Unverified 03/23/21 21:09 Assessment & Plan Assessment & Plan (1) Bipolar I disorder depressed with catatonic features: Status: Acute Code(s): F31.30 - Bipolar disorder, current episode depressed, mild or moderate severity, unspecified; F06.1 - Catatonic disorder due to known physiological condition (2) Aspiration pneumonitis: Status: Acute Code(s): J69.0 - Pneumonitis due to inhalation of food and vomit Assessment and Plan: On aumentin for 7 days. Assessment and Plan: Mr. Carcamo is a 30 year-old male admitted on Section 8 from [facility] for tx of catatonia. Pt's has presented with symptoms of alevism preoccupation followed by catatonia since 05/2020. 03/30- speech more spontaneous, fluent, less monosyllabic, less psychomotor retardation, no acute distress PLAN 1. Section 8, 15 minutes checks for safety. 2. Catatonia- plan to resume ECT per Dr. Godoy and anesthesiology. Decrease ativan to 2mg po TID- monitor worsening of catatonia. Continue olanzapine 2.5mg po qhs may titrate as no regression of catatonia s/s now that ECT was delayed. #. Aspiration Pneumonia- on aumentin for 7 days (last day 04/05), no hypotension, no signs of sepsis, no SOB, o2sat >97% on room air 3. father-next of kin informed of pneumonia, tx plan. I spent minutes with the patient and/or on the patient floor today, greater than?50% of which was spent counseling/coordinating care. Reason for contiued inpatient stay Substantial Risk for: inability to function
[2021-04-03 17:21] VITALS: BP 135/85; PULSE 94; TEMP 36.3; O2SAT 96
[2021-04-03] MEDS: OLANZapine 2.5 MG TABLET PO (21:37)
[2021-04-04 06:00] VITALS: BP 123/77; PULSE 95; RESP 18; TEMP 37.1; O2SAT 98
[2021-04-04] MEDS: Omeprazole 40 MG CAPSULE.DR PO ×2 (06:31→16:47)
[2021-04-04] MEDS: Amoxicillin/Potassium Clav 875 MG TABLET PO ×2 (08:58→22:45)
[2021-04-04] MEDS: LORazepam 1 MG TABLET 2 MG PO ×3 (08:58→22:45)
--- NOTE | 2021-04-04 11:27 | P.PNPSI_ITS ---
Subjective Subjective Date of Service: 04/04/21 Reason For Visit: Depression Subjective Notes: Section 8 Interim History: Per nursing, pt has been much more visible, showering on his own, with brighter affect, more talkative. Today, pt reports sleeping and eating well. Some mild delayed in response and somewhat confused as to court hearing yesterday for temporary guardianship. Pt denies any physical pain. He denies SI/HI. He denies VH/AH, some presybeterian preoccupation noted, pt prays before eating, reports no other activity interests him unless related to druze. In terms of asp. pneumonia- pt denies SOB, afebrile, no HOTN, no throat pain or chest pain. Some poverty of speech still noted, ? some degree of internally preoccupied although pt responding questions appropriately without much delay. Review of Systems Review of Systems Unremarkable Yes all other systems are reviewed and are negative and Unobtainable due to mental status Mental Status Exam Mental Status Exam Narrative: Appearance: casually groomed, fair hygiene in NAD Behavior:smiles at times, psychomotor:less retardation Speech: clear, increasingly more spontaneous, soft tone, less delayed response. Thought process:appropriate response to question with single words, no loose associations Thought content: no overt psychosis, feeling better, trying to understands what has happened to him for the past several months. Mood: okay Affect: brightens at times SI:denies HI:denies VH/AH:none Delusions:none Insight/judgment:improving Memory/cog:alert, oriented to place, month, date, year. Diagnostics Vital Signs (24Hr): Vital Signs - 24 hr 04/03/21 17:21 04/04/21 06:00 Temperature 97.4 F 98.7 F Pulse Rate 94 95 Respiratory Rate 18 Blood Pressure 135/85 123/77 Pulse Oximetry 96 98 Body Mass Index 25.3 Labs Results: 03/30/21 08:17 03/29/21 13:18 Imaging Radiology Impressions: ITS Impressions Chest X-Ray 03/29/21 14:21 IMPRESSION: No acute disease. Chest CT 03/29/21 15:36 IMPRESSION: 1. Coarsening bronchovascular markings right lower lobe with 1 bronchiolar mucous plugging and some fine tree-in-bud acinar opacities suggesting sequela from aspiration. Subsegmental atelectasis left posterior base. Trace right effusion. No adenopathy. 2. No lobar or segmental airspace consolidation. 3. Solitary nodule right middle lobe under 4 mm. No additional follow-up required in low risk patient. Medications Medications Current Medications Acetaminophen (Acetaminophen 325 Mg Tablet) 650 mg PO Q6H PRN PRN Reason: Headache/Pain Mild Scale (1-3) Last Admin: 03/30/21 19:03 Dose: 650 mg Documented by: Acetaminophen (Acetaminophen 325 Mg Tablet) 650 mg PO ONCE PRN PRN Reason: Pain, Mild (Pain Scale 1-3) Al Hydroxide/Mg Hydroxide (Magnesium Hydrox/Alum Hydrox 30 Ml Oral.Susp) 30 ml PO Q6H PRN PRN Reason: Heartburn/Nausea Amoxicillin/Clavulanate Potassium (Amoxicillin/Potassium Clav 875 Mg Tablet) 875 mg PO BID [facility] Last Admin: 04/04/21 08:58 Dose: 875 mg Documented by: Hydroxyzine HCl (Hydroxyzine Hcl 25 Mg Tablet) 25 mg PO BEDTIME PRN PRN Reason: Anxiety Ibuprofen (Ibuprofen 600 Mg Tablet) 600 mg PO Q6H PRN PRN Reason: Fever >100.4 Last Admin: 03/31/21 20:55 Dose: 600 mg Documented by: Lorazepam (Lorazepam 1 Mg Tablet) 2 mg PO TID [facility] Last Admin: 04/04/21 14:20 Dose: 2 mg Documented by: Magnesium Hydroxide (Milk Of Magnesia 30 Ml Oral.Susp) 30 ml PO DAILY PRN PRN Reason: Constipation Olanzapine (Olanzapine 2.5 Mg Tablet) 2.5 mg PO BEDTIME [facility] Last Admin: 04/03/21 21:37 Dose: 2.5 mg Documented by: Omeprazole (Omeprazole 40 Mg Capsule.Dr) 40 mg PO BID@0630,1630 [facility] Last Admin: 04/04/21 06:31 Dose: 40 mg Documented by: Ondansetron HCl (Ondansetron Hcl 4 Mg/2 Ml Vial) 4 mg IVPUSH ONCE PRN PRN Reason: Nausea and Vomiting Ondansetron HCl (Ondansetron Hcl 4 Mg/2 Ml Vial) 4 mg IVPUSH ONCE PRN PRN Reason: Nausea and Vomiting Trazodone HCl (Trazodone Hcl 50 Mg Tablet) 50 mg PO BEDTIME PRN PRN Reason: Insomnia Allergies Allergies Allergy/AdvReac Type Severity Reaction Status Date / Time No Known Allergies Allergy Unverified 10/28/21 21:09 Assessment & Plan Assessment & Plan (1) Bipolar I disorder depressed with catatonic features: Status: Acute Code(s): F31.30 - Bipolar disorder, current episode depressed, mild or moderate severity, unspecified; F06.1 - Catatonic disorder due to known physiological condition (2) Aspiration pneumonitis: Status: Acute Code(s): J69.0 - Pneumonitis due to inhalation of food and vomit Assessment and Plan: On aumentin for 7 days. Assessment and Plan: Mr. Carcamo is a 30 year-old male admitted on Section 8 from [facility] for tx of catatonia. Pt's has presented with symptoms of presybeterian preoccupation followed by catatonia since 05/2020. 03/30- speech more spontaneous, fluent, less monosyllabic, less psychomotor retardation, no acute distress PLAN 1. Section 8, 15 minutes checks for safety. 2. Catatonia- plan to resume ECT per Dr. Godoy and anesthesiology. Decrease ativan to 2mg po TID- monitor worsening of catatonia. Continue olanzapine 2.5mg po qhs may titrate as no regression of catatonia s/s now that ECT was delayed. #. Aspiration Pneumonia- on aumentin for 7 days (last day 04/05), no hypotension, no signs of sepsis, no SOB, o2sat >97% on room air 3. father-next of kin informed of pneumonia, tx plan. I spent minutes with the patient and/or on the patient floor today, greater than?50% of which was spent counseling/coordinating care. Reason for contiued inpatient stay Substantial Risk for: inability to function
--- NOTE | 2021-04-04 11:54 | PM.EVENT ---
Event Note Date of Service: 04/23/21 Event Note: patient seen today there is no signs of active infection at this time patient is for ECT.
--- NOTE | 2021-04-04 13:26 | MHC.SL.SWA ---
Speech Pathologist Impression: Pt. demonstrates swallow WNL with no evidence of aspiration ristk Risk of Aspiration Due to: Dysphasia Diet Status: Regular, thin liquids, no restrictions Liquid Consistency and Strategies for Safe Swallow: Liquid Intake Recommendation: Thin, independent from cup Liquid Intake Strategies: Solid Food Consistency: Dietary Recommendations: Regular Additional Modifications to Solid Foods: Oral Medication Intake: Whole with liquid Compensatory Strategies and Precautions to be Taken for Safe Swallow: Supervision While Eating and Drinking for Safe Swallow: Foods to Avoid: Swallowing Recommended Treatments: Recommendation for Speech: Discharge Comment: Frequency/Duration: Date Range for Service Req: Timeline to reassess: Resource Specialist Teacher Clinican/Clinical Fellow: Supervisory Statement: I have reviewed and agree with the student/clinical fellow's documentation: Speech Language Pathologist: Ama Dawson M.A., CCC-BRANCH ASSOCIATE
[2021-04-04 19:27] VITALS: BP 127/70; PULSE 91; TEMP 36.5; O2SAT 96
[2021-04-04] MEDS: OLANZapine 2.5 MG TABLET PO (22:45)
[2021-04-05] VITALS (12 sets, daily range): BP systolic 119–147; BP diastolic 47–82; PULSE 65–126; RESP 16–18; TEMP 36.6–37.8; O2SAT 93–96; BMI 24.4
--- NOTE | 2021-04-05 07:43 | MHC.SHP ---
Pre-Procedural Eval Section A Date of Service: 04/05/21 The patient is an INPATIENT: Yes Changes since office visit: Yes New Medical Problems, Yes Changes in Medication and Yes Patient answered all questions; No Cold of Flu in the past 2 weeks The History & Physical has been completed within 30 days and I have reviewed it.: Yes Section B Chief Complaint: Depression Allergies: Allergies Allergy/AdvReac Type Severity Reaction Status Date / Time No Known Allergies Allergy Unverified 03/23/21 21:09 Plan I have reviewed the history and physical and performed a pertinent physical examination on my patient. No changes have occurred unless specified.
--- NOTE | 2021-04-05 07:44 | HO.ECTPROC ---
ECT Procedure Note Diagnosis/Treatment Date of Service: 04/05/21 Diagnosis: Catatonia Previous ECT Date: 03/29/21 Current Treatment Number: 3 Treatment: Series Interval Clinical Notes: PTS case extensively reviewed with anesthesia regarding prior ect and ? aspiration swallowing study nl pt has been afebrile good oxygenation see note by dr joseph pt to be tx sitting up given robinal pre tx on ppi pt had course of antibiotics with good effect pt has had good response to ect for catatonia ECT Settings Device: THYMATRON DGx Electrode Placement: Rt temporal/ Lt frontal Program/Pulse Width: 0.50 Energy Percent: 80 Seizure Duration By EEG (in seconds): 68 Medications Administration General Anesthetic: Etomidate (18) Muscle Relaxant: Succinylcholine (100) Ancillary Medications Analgesics: Torodol - Pre ECT Anti-emetics: Zofran - Pre ECT Cardiovascular Medications: Glycopyrrolate (0.2) Miscillaneous Medications: Flumazenil Airway Management Airway Management: Bag Mask Ventilation Treatment Recommendations No Changes Recommended: No change Notes: pt stable post ect Pt Tolerated Procedure w/o Issue: Yes
--- NOTE | 2021-04-05 07:45 | HO.ECTPROC ---
ECT Procedure Note Diagnosis/Treatment Date of Service: 04/05/21 ECT Settings Device: THYMATRON DGx
--- NOTE | 2021-04-05 07:47 | HO.ANESPROP2 ---
HPI - Anesthesia Eval Consult details Narrative: Bipolar 1 with catatonia PMFSH Active Problems Active Problems: All Active Problems (Updated 03/31/21 @ 15:09 by Erlinda Salgado) Bipolar I disorder depressed with catatonic features (Acute) Aspiration pneumonitis (Acute) Catatonia (Acute) Routine medical exam (Acute) Family History Family history of problems with anesthesia: Unobtainable Surgical History History of Problems with Anesthesia: Unobtainable Social History Social History Household Members: Family Housing: House Patient Tobacco Use Status: Never used Tobacco Currently Displaying Signs/Symptoms of Drug Intoxication Withdrawal: No Any prior treatment program specific to substance use: No Are you DNR?: No Advance Directives: No Advance Directives Information Provided: No Do you have thoughts of harming others: None Do you have a plan to hurt others: No Plan Recently lost weight without trying: No How much weight loss: Unsure service: No Sexual orientation: Did not discuss Meds Allergies Allergy/AdvReac Type Severity Reaction Status Date / Time No Known Allergies Allergy Unverified 03/23/21 21:09 Active Medications: Current Medications Acetaminophen (Acetaminophen 325 Mg Tablet) 650 mg PO Q6H PRN PRN Reason: Headache/Pain Mild Scale (1-3) Last Admin: 03/30/21 19:03 Dose: 650 mg Documented by: Acetaminophen (Acetaminophen 325 Mg Tablet) 650 mg PO ONCE PRN PRN Reason: Pain, Mild (Pain Scale 1-3) Al Hydroxide/Mg Hydroxide (Magnesium Hydrox/Alum Hydrox 30 Ml Oral.Susp) 30 ml PO Q6H PRN PRN Reason: Heartburn/Nausea Amoxicillin/Clavulanate Potassium (Amoxicillin/Potassium Clav 875 Mg Tablet) 875 mg PO BID [facility] Last Admin: 04/04/21 22:45 Dose: 875 mg Documented by: Hydroxyzine HCl (Hydroxyzine Hcl 25 Mg Tablet) 25 mg PO BEDTIME PRN PRN Reason: Anxiety Ibuprofen (Ibuprofen 600 Mg Tablet) 600 mg PO Q6H PRN PRN Reason: Fever >100.4 Last Admin: 03/31/21 20:55 Dose: 600 mg Documented by: Lorazepam (Lorazepam 1 Mg Tablet) 2 mg PO TID [facility] Last Admin: 04/04/21 22:45 Dose: 2 mg Documented by: Magnesium Hydroxide (Milk Of Magnesia 30 Ml Oral.Susp) 30 ml PO DAILY PRN PRN Reason: Constipation Olanzapine (Olanzapine 2.5 Mg Tablet) 2.5 mg PO BEDTIME [facility] Last Admin: 04/04/21 22:45 Dose: 2.5 mg Documented by: Omeprazole (Omeprazole 40 Mg Capsule.Dr) 40 mg PO BID@0630,1630 [facility] Last Admin: 04/05/21 06:07 Dose: Not Given Documented by: Ondansetron HCl (Ondansetron Hcl 4 Mg/2 Ml Vial) 4 mg IVPUSH ONCE PRN PRN Reason: Nausea and Vomiting Ondansetron HCl (Ondansetron Hcl 4 Mg/2 Ml Vial) 4 mg IVPUSH ONCE PRN PRN Reason: Nausea and Vomiting Trazodone HCl (Trazodone Hcl 50 Mg Tablet) 50 mg PO BEDTIME PRN PRN Reason: Insomnia Exam Exam Date and Time: April 05, 2021 0747 Height,Weight and Vital Signs: Height 5 ft 3.5 in Weight 63.503 kg Last Vital Signs Temp 98.8 F 04/05/21 06:32 Pulse 77 04/05/21 06:32 Resp 16 04/05/21 06:32 BP 125/80 04/05/21 06:32 Pulse Ox 96 04/05/21 06:32 Pertinent Lab Results Pertinent Lab Results: Laboratory Tests 03/24/21 03/24/21 03/27/21 15:40 15:40 12:45 WBC 5.5 RBC 5.25 Hgb 14.8 Hct 43.7 MCV 83.2 MCH 28.2 MCHC 33.9 RDW 11.9 Plt Count 181 MPV 11.1 Immature Gran % (Auto) 0.4 Neut % (Auto) 59.3 Lymph % (Auto) 30.1 [place] % (Auto) 9.4 Eos % (Auto) 0.4 Baso % (Auto) 0.4 Lymph # (Auto) 1.7 [place] # (Auto) 0.5 Eos # (Auto) 0.0 Baso # (Auto) 0.0 Abs Immat Gran (auto) 0.02 Absolute Neuts (auto) 3.3 Absolute Nucleated RBC 0.000 Nucleated RBC % (auto) 0.0 D-Dimer Sodium 139 Potassium 4.1 Chloride 105 Carbon Dioxide 23 Anion Gap 15 BUN 10 Creatinine 0.85 Estim Creat Clear Calc TNP Estimated GFR > 60 Random Glucose 86 Lactic Acid Calcium 9.5 Total Bilirubin 0.5 AST 19 ALT 28 Alkaline Phosphatase 115 Total Creatine Kinase 71 Total Protein 7.2 Albumin 4.3 COVID-19 ([facility]) Negative COVID-19 Clin Com See Note 03/29/21 03/29/21 03/29/21 13:18 13:18 13:18 WBC 11.1 H RBC 5.12 Hgb 14.4 Hct 42.9 MCV 83.8 MCH 28.1 MCHC 33.6 RDW 11.9 Plt Count 169 MPV 10.6 Immature Gran % (Auto) 0.3 Neut % (Auto) 77.9 H Lymph % (Auto) 11.7 L [place] % (Auto) 9.7 Eos % (Auto) 0.1 Baso % (Auto) 0.3 Lymph # (Auto) 1.3 [place] # (Auto) 1.1 Eos # (Auto) 0.0 Baso # (Auto) 0.0 Abs Immat Gran (auto) 0.03 Absolute Neuts (auto) 8.63 H Absolute Nucleated RBC 0.000 Nucleated RBC % (auto) 0.0 D-Dimer 386 Sodium 143 Potassium 3.7 Chloride 109 H Carbon Dioxide 25 Anion Gap 13 BUN 8 L Creatinine 1.00 Estim Creat Clear Calc 88.5 Estimated GFR > 60 Random Glucose 95 Lactic Acid Calcium 9.1 Total Bilirubin 0.3 AST 13 ALT 16 Alkaline Phosphatase 94 Total Creatine Kinase 312 H D Total Protein 6.9 Albumin 4.0 COVID-19 ([facility]) COVID-19 Clin Com 03/29/21 03/30/21 03/30/21 15:13 08:17 08:17 WBC 8.7 RBC 4.70 Hgb 13.1 L Hct 39.3 L MCV 83.6 MCH 27.9 MCHC 33.3 RDW 11.9 Plt Count 177 MPV 11.3 Immature Gran % (Auto) 0.3 Neut % (Auto) 64.1 Lymph % (Auto) 22.3 [place] % (Auto) 12.4 H Eos % (Auto) 0.7 Baso % (Auto) 0.2 Lymph # (Auto) 1.9 [place] # (Auto) 1.1 Eos # (Auto) 0.1 Baso # (Auto) 0.0 Abs Immat Gran (auto) 0.03 Absolute Neuts (auto) 5.57 Absolute Nucleated RBC 0.000 Nucleated RBC % (auto) 0.0 D-Dimer Sodium Potassium Chloride Carbon Dioxide Anion Gap BUN Creatinine Estim Creat Clear Calc Estimated GFR Random Glucose Lactic Acid 1.8 Calcium Total Bilirubin AST ALT Alkaline Phosphatase Total Creatine Kinase 208 H Total Protein Albumin COVID-19 ([facility]) COVID-19 Clin Com Narrative Narrative: Patient had possiblw microaspiration one week ago during ECT. Patient was seen yesterday by Dr. joseph and was said to be optimized for procedure today. Thank you Airway Mallampati Class: II TM Dist: >3cm Neck ROM: Full Loose/Missing/Broken Teeth: No Heart: [id number] Lungs: cta b/l Assessment and Plan Assessment Anesthesia Assessment: Anesthesia Plan Discussed and Chart Reviewed Final Anesthetic Review Family History of Problems with Anesthesia: Unobtainable History of Problems with Anesthesia: Unobtainable NPO: Yes ASA Class: III Final Preanesthetic Review: No Changes in Pt Med Stat, Meds/Allgs Chart Reviewed, Consent Obtained/Reviewed and Anes Risks/Benef Reviewed Patient Risk: Intermediate Procedure Risk: Intermediate Assessment/Block/Sedation in SS: Assess/Block/Sedation-SS Anesthetic Plan Anesthetic Plan: GA and Agree w/ Assess. and Plan Disposition: Standard PACU
--- NOTE | 2021-04-05 08:33 | PC.NURSE ---
This RN assited patient with IS followed directions well. First attempt 500ml, second attempt 750ml. Will continue to encourage coughing and deep breathing as well as IS exercises.
[2021-04-05] MEDS: Amoxicillin/Potassium Clav 875 MG TABLET PO (09:56)
[2021-04-05] MEDS: LORazepam 1 MG TABLET 2 MG PO ×3 (09:56→22:16)
--- NOTE | 2021-04-05 16:17 | HO.PSYCHPN ---
Subjective Subjective Date of Service: 04/05/21 Reason For Visit: Depression Subjective Notes: Section 8 Interim History: Pt had ECT # 3 today. Pt did not have any complications. VS wnl. Pt has been walking in unit, attended one group. He reports he is doing well. he reports at night he is tossing and turning. He denies VH/AH. He does not have any speech delayed. He denies SI/HI. His eye contact is somewhat intense and affect constricted in range but improving. Aspiration Pneumonia- last day of antibiotics is today. No fever, no SOB, no cough, no chest pain. Medication Compliance: Yes Side effects from medications: No Attending Groups: Intermittent Review of Systems Acute medical concerns: No Review of Systems Review of Systems Unremarkable Yes all other systems are reviewed and are negative and Unobtainable due to mental status Mental Status Exam Mental Status Exam Narrative: Appearance: casually groomed, fair hygiene in NAD Behavior:smiles at times, psychomotor:less retardation Speech: clear, increasingly more spontaneous, soft tone, less delayed response. Thought process:appropriate response to question with single words, no loose associations Thought content: no overt psychosis, feeling better, trying to understands what has happened to him for the past several months. Mood: okay Affect: brightens at times SI:denies HI:denies VH/AH:none Delusions:none Insight/judgment:improving Memory/cog:alert, oriented to place, month, date, year. Diagnostics Vital Signs (24Hr): Vital Signs - 24 hr 04/04/21 19:27 04/05/21 06:04 04/05/21 06:32 Temperature 97.7 F 97.8 F 98.8 F Pulse Rate 91 102 H 77 Respiratory Rate 18 16 Blood Pressure 127/70 124/78 125/80 Pulse Oximetry 96 96 96 04/05/21 08:11 04/05/21 08:16 04/05/21 08:21 Temperature 99.2 F Pulse Rate 95 93 90 Respiratory Rate 16 16 16 Blood Pressure 147/63 H 143/71 H 135/71 Pulse Oximetry 95 95 93 04/05/21 08:26 04/05/21 08:41 04/05/21 08:56 Temperature 98.3 F 97.9 F Pulse Rate 86 85 72 Respiratory Rate 16 16 17 Blood Pressure 130/47 L 125/75 122/81 Pulse Oximetry 94 93 94 04/05/21 09:11 04/05/21 09:56 Temperature 98.3 F 98.2 F Pulse Rate 78 65 Respiratory Rate 17 16 Blood Pressure 122/81 121/82 Pulse Oximetry 96 95 Body Mass Index 24.4 Labs Results: 03/30/21 08:17 03/29/21 13:18 Imaging Radiology Impressions: ITS Impressions Chest X-Ray 03/29/21 14:21 IMPRESSION: No acute disease. Chest CT 03/29/21 15:36 IMPRESSION: 1. Coarsening bronchovascular markings right lower lobe with 1 bronchiolar mucous plugging and some fine tree-in-bud acinar opacities suggesting sequela from aspiration. Subsegmental atelectasis left posterior base. Trace right effusion. No adenopathy. 2. No lobar or segmental airspace consolidation. 3. Solitary nodule right middle lobe under 4 mm. No additional follow-up required in low risk patient. Medications Medications Current Medications Acetaminophen (Acetaminophen 325 Mg Tablet) 650 mg PO Q6H PRN PRN Reason: Headache/Pain Mild Scale (1-3) Last Admin: 03/30/21 19:03 Dose: 650 mg Documented by: Al Hydroxide/Mg Hydroxide (Magnesium Hydrox/Alum Hydrox 30 Ml Oral.Susp) 30 ml PO Q6H PRN PRN Reason: Heartburn/Nausea Amoxicillin/Clavulanate Potassium (Amoxicillin/Potassium Clav 875 Mg Tablet) 875 mg PO BID [facility] Last Admin: 04/05/21 09:56 Dose: 875 mg Documented by: Hydroxyzine HCl (Hydroxyzine Hcl 25 Mg Tablet) 25 mg PO BEDTIME PRN PRN Reason: Anxiety Ibuprofen (Ibuprofen 600 Mg Tablet) 600 mg PO Q6H PRN PRN Reason: Fever >100.4 Last Admin: 03/31/21 20:55 Dose: 600 mg Documented by: Lorazepam (Lorazepam 1 Mg Tablet) 2 mg PO TID [facility] Last Admin: 04/05/21 14:59 Dose: 2 mg Documented by: Magnesium Hydroxide (Milk Of Magnesia 30 Ml Oral.Susp) 30 ml PO DAILY PRN PRN Reason: Constipation Olanzapine (Olanzapine 2.5 Mg Tablet) 2.5 mg PO BEDTIME [facility] Last Admin: 04/04/21 22:45 Dose: 2.5 mg Documented by: Omeprazole (Omeprazole 40 Mg Capsule.Dr) 40 mg PO BID@0630,1630 [facility] Last Admin: 04/05/21 06:07 Dose: Not Given Documented by: Ondansetron HCl (Ondansetron Hcl 4 Mg/2 Ml Vial) 4 mg IVPUSH ONCE PRN PRN Reason: Nausea and Vomiting Oxycodone HCl (Oxycodone Hcl Immed Release 5 Mg Tablet) 10 mg PO ONCE PRN PRN Reason: Pain, Severe (Pain Scale 7-10) Trazodone HCl (Trazodone Hcl 50 Mg Tablet) 50 mg PO BEDTIME PRN PRN Reason: Insomnia Allergies Allergies Allergy/AdvReac Type Severity Reaction Status Date / Time No Known Allergies Allergy Unverified 03/23/21 21:09 Assessment & Plan Assessment & Plan (1) Bipolar I disorder depressed with catatonic features: Status: Acute Code(s): F31.30 - Bipolar disorder, current episode depressed, mild or moderate severity, unspecified; F06.1 - Catatonic disorder due to known physiological condition (2) Aspiration pneumonitis: Status: Acute Code(s): J69.0 - Pneumonitis due to inhalation of food and vomit Assessment and Plan: On aumentin for 7 days. Assessment and Plan: Mr. Carcamo is a 30 year-old male admitted on Section 8 from [facility] [place] for tx of catatonia. Pt's has presented with symptoms of cheondoism preoccupation followed by catatonia since 05/2020. 03/30- speech more spontaneous, fluent, less monosyllabic, less psychomotor retardation, no acute distress PLAN 1. Section 8, 15 minutes checks for safety. 2. Catatonia- ECT #3 on 04/05/21. Continue Ativan to 2mg po TID- monitor worsening of catatonia. Continue olanzapine 2.5mg po qhs may titrate.. #. Aspiration Pneumonia- on aumentin for 7 days (last day 04/05), no hypotension, no signs of sepsis, no SOB, o2sat >97% on room air 3. father-next of kin informed of pneumonia, tx plan. I spent minutes with the patient and/or on the patient floor today, greater than?50% of which was spent counseling/coordinating care. Reason for contiued inpatient stay Substantial Risk for: inability to function
[2021-04-05] MEDS: Omeprazole 40 MG CAPSULE.DR PO (16:40)
[2021-04-05 21:02] LABS: MANUAL DIFF FLAG NO
[2021-04-05 21:04] LABS: Basophils Absolute Auto 0.1 X10*3/uL (0.0-0.2); Basophils Percent Auto 0.3 % (0-2); Eosinophils Percent Auto 0.2 % (0-4); Hematocrit 38.2 % (42.0-52.0); Hemoglobin 12.9 g/dl (14.0-18.0); Imm Gran Pct Auto 0.6 % (0.0-0.4); Lymphocytes Absolute Auto 2.4 X10*3/uL (1.2-4.9); Lymphocytes Percent Auto 13.4 % (20-40); Mean Corpuscular HGB Conc 33.8 g/dl (31.0-36.0); Mean Corpuscular Volume 82.9 fL (80.0-98.0); Mean Platelet Volume 10.3 fL (9.4-12.4); Monocytes Absolute Auto 1.4 X10*3/uL (0.1-1.2); Monocytes Percent Auto 8.1 % (2-11); Neutrophils Absolute Auto 13.7 x10*3/uL (2.0-8.3); Neutrophils Percent Auto 77.4 % (45-73); Platelet Count 251 X10*3/uL (160-400); Red Blood Count 4.61 X10*6/uL (4.60-5.80); Red Cell Distribution Width 11.9 % (11.0-16.0); White Blood Count 17.7 X10*3/uL (4.8-10.8)
[2021-04-05 21:21] LABS: Alanine Aminotransferase 84 U/L (0-40); Albumin Level 3.9 g/dL (3.5-5.0); Alkaline Phosphatase 90 U/L (39-117); Anion Gap 10 (12-20); Aspartate Amino Transferase 34 U/L (5-37); Bilirubin Total 0.4 mg/dL (0.0-1.0); Blood Urea Nitrogen 17 mg/dL (9-16); Carbon Dioxide 28 mmol/L (22-29); Chloride 105 mmol/L (96-108); Creatinine Clr Calc Pharmacy 76.9; Estimated Glomerular Filt Rate > 60; Glucose Random 106 mg/dL (60-115); Potassium 4.3 mmol/L (3.3-5.1); Sodium 139 mmol/L (135-145); Total Protein 6.5 g/dL (6.5-8.0)
[2021-04-05] MEDS: OLANZapine 2.5 MG TABLET PO (22:16)
--- NOTE | 2021-04-05 23:57 | P.EN_ITS ---
Event Note Date of Service: 04/05/21 Event Note: Was noted to be somewhat tachycardic had been lying flat note larissa ent was noted to be somewhat tachycardic po2 95 Plan to use incentive spirometerm monitor temperature monitor shortness of breath and O2 c case reviewed with nursing staff
[2021-04-06] VITALS: BP 97/51; PULSE 86; RESP 18; TEMP 36.9; O2SAT 96
--- NOTE | 2021-04-06 00:02 | PC.NURSE ---
This song writer went into patient's room to check his vital signs. Patient was noted to perspiring. Patient was wearing a long sleeved shirt with a hospital cata top on and several heavy bedspreads over him. Vital signs were taken and read as follows: oral temperature 100.1 F, respiratory rate 16, heart rate 126, BP 120/65. Patient's extra bedspreads were removed, and patient instructed to take off cata top and drink fluids. Patient denied any pain or issues. This song writer alerted Dr. Godoy of the patient's current presentation. Orders were received to keep the patient's head elevated and not let him lie flat, vitals to be done every 4 hours and spirometer to be done every 2 hours while patient awake. This song writer had patient use spirometer and patient was able to do 4 repetitions with a volume of 1,500 mls. At 2145 vital signs were repeated and oral temperature was 97.8, RR 16, HR 105 BP 119/60 and room air O2 sats of 95%. 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 Patient had had urgent blood work done and Dr. Godoy aware of results. Patient resting in NAD at shift change after taking his HS medications and drinking a full pitcher of cold water. warehouse worker 2nd shift aware of patient's issues this evening.
[2021-04-06 04:00] VITALS: BP 115/57; PULSE 77; RESP 16; TEMP 36.3; O2SAT 96
[2021-04-06] MEDS: Omeprazole 40 MG CAPSULE.DR PO ×2 (08:33→15:49)
[2021-04-06] MEDS: LORazepam 1 MG TABLET 2 MG PO ×3 (08:33→19:56)
--- NOTE | 2021-04-06 12:46 | HO.PSYCHPN ---
Subjective Subjective Date of Service: 04/06/21 Reason For Visit: Depression Subjective Notes: Section 8 Interim History: Pt has been intermittently out of bed today. he did attend one group in the morning. He asks about this feature writer and my role. Pt reports sleeping and eating well. He reports feeling somewhat tired and hoping to rest a little bit. Temp last night 100 but no elevation after. He denies SOB, afebrile. His eye contact is somewhat intense and affect constricted in range but improving. Aspiration Pneumonia- last day of antibiotics is today. No fever, no SOB, no cough, no chest pain. Review of Systems Review of Systems Unremarkable Yes all other systems are reviewed and are negative and Unobtainable due to mental status Mental Status Exam Mental Status Exam Narrative: Appearance: casually groomed, fair hygiene in NAD Behavior:smiles at times, psychomotor:less retardation Speech: clear, increasingly more spontaneous, soft tone, less delayed response. Thought process:appropriate response to question with single words, no loose associations Thought content: no overt psychosis, feeling better, trying to understands what has happened to him for the past several months. Mood: okay Affect: brightens at times, does have constricted affect, mask like affect SI:denies HI:denies VH/AH:none Delusions:none Insight/judgment:improving Memory/cog:alert, oriented to place, month, date, year. Diagnostics Vital Signs (24Hr): Vital Signs - 24 hr 04/05/21 19:48 04/05/21 21:45 04/06/21 00:00 Temperature 100.1 F 97.8 F 98.4 F Pulse Rate 126 H 105 H 86 Respiratory Rate 16 16 18 Blood Pressure 134/63 119/60 97/51 L Pulse Oximetry 95 95 96 04/06/21 04:00 Temperature 97.3 F Pulse Rate 77 Respiratory Rate 16 Blood Pressure 115/57 L Pulse Oximetry 96 Body Mass Index 24.4 Labs Results: 04/05/21 20:57 04/05/21 20:57 Labs: Laboratory Results - last 48 hr 04/05/21 04/05/21 20:57 20:57 WBC 17.7 H RBC 4.61 Hgb 12.9 L Hct 38.2 L MCV 82.9 MCH 28.0 MCHC 33.8 RDW 11.9 Plt Count 251 D MPV 10.3 Immature Gran % (Auto) 0.6 H Neut % (Auto) 77.4 H Lymph % (Auto) 13.4 L [place] % (Auto) 8.1 Eos % (Auto) 0.2 Baso % (Auto) 0.3 Lymph # (Auto) 2.4 [place] # (Auto) 1.4 H Eos # (Auto) 0.0 Baso # (Auto) 0.1 Abs Immat Gran (auto) 0.10 H Absolute Neuts (auto) 13.7 H Absolute Nucleated RBC 0.000 Nucleated RBC % (auto) 0.0 Sodium 139 Potassium 4.3 Chloride 105 Carbon Dioxide 28 Anion Gap 10 L BUN 17 H D Creatinine 1.15 Estim Creat Clear Calc 76.9 Estimated GFR > 60 Random Glucose 106 Calcium 9.0 Total Bilirubin 0.4 AST 34 D ALT 84 H Alkaline Phosphatase 90 Total Protein 6.5 Albumin 3.9 Imaging Radiology Impressions: ITS Impressions Chest X-Ray 03/29/21 14:21 IMPRESSION: No acute disease. Chest CT 03/29/21 15:36 IMPRESSION: 1. Coarsening bronchovascular markings right lower lobe with 1 bronchiolar mucous plugging and some fine tree-in-bud acinar opacities suggesting sequela from aspiration. Subsegmental atelectasis left posterior base. Trace right effusion. No adenopathy. 2. No lobar or segmental airspace consolidation. 3. Solitary nodule right middle lobe under 4 mm. No additional follow-up required in low risk patient. Medications Medications Current Medications Acetaminophen (Acetaminophen 325 Mg Tablet) 650 mg PO Q6H PRN PRN Reason: Headache/Pain Mild Scale (1-3) Last Admin: 03/30/21 19:03 Dose: 650 mg Documented by: Al Hydroxide/Mg Hydroxide (Magnesium Hydrox/Alum Hydrox 30 Ml Oral.Susp) 30 ml PO Q6H PRN PRN Reason: Heartburn/Nausea Hydroxyzine HCl (Hydroxyzine Hcl 25 Mg Tablet) 25 mg PO BEDTIME PRN PRN Reason: Anxiety Ibuprofen (Ibuprofen 600 Mg Tablet) 600 mg PO Q6H PRN PRN Reason: Fever >100.4 Last Admin: 03/31/21 20:55 Dose: 600 mg Documented by: Lorazepam (Lorazepam 1 Mg Tablet) 2 mg PO TID [facility] Last Admin: 04/06/21 08:33 Dose: 2 mg Documented by: Magnesium Hydroxide (Milk Of Magnesia 30 Ml Oral.Susp) 30 ml PO DAILY PRN PRN Reason: Constipation Olanzapine (Olanzapine 2.5 Mg Tablet) 2.5 mg PO BEDTIME [facility] Last Admin: 04/05/21 22:16 Dose: 2.5 mg Documented by: Omeprazole (Omeprazole 40 Mg Capsule.) 40 mg PO BID@0630,1630 [facility] Last Admin: 04/06/21 08:33 Dose: 40 mg Documented by: Trazodone HCl (Trazodone Hcl 50 Mg Tablet) 50 mg PO BEDTIME PRN PRN Reason: Insomnia Allergies Allergies Allergy/AdvReac Type Severity Reaction Status Date / Time No Known Allergies Allergy Unverified 03/23/21 21:09 Assessment & Plan Assessment & Plan (1) Bipolar I disorder depressed with catatonic features: Status: Acute Code(s): F31.30 - Bipolar disorder, current episode depressed, mild or moderate severity, unspecified; F06.1 - Catatonic disorder due to known physiological condition (2) Aspiration pneumonitis: Status: Acute Code(s): J69.0 - Pneumonitis due to inhalation of food and vomit Assessment and Plan: On aumentin for 7 days. Assessment and Plan: Mr. Carcamo is a 30 year-old male admitted on Section 8 from [facility] for tx of catatonia. Pt's has presented with symptoms of sabianism preoccupation followed by catatonia since 05/2020. 03/30- speech more spontaneous, fluent, less monosyllabic, less psychomotor retardation, no acute distress PLAN 1. Section 8, 15 minutes checks for safety. 2. Catatonia- ECT #3 on 04/05/21. Continue Ativan to 2mg po TID- monitor worsening of catatonia. Continue olanzapine 2.5mg po qhs may titrate.. #. Aspiration Pneumonia- on aumentin for 7 days (last day 04/05), no hypotension, no signs of sepsis, no SOB, o2sat >97% on room air 3. father-next of kin informed of pneumonia, tx plan. I spent minutes with the patient and/or on the patient floor today, greater than?50% of which was spent counseling/coordinating care. Reason for contiued inpatient stay Substantial Risk for: inability to function
[2021-04-06 16:00] VITALS: BP 137/82; PULSE 109; RESP 16; TEMP 36.9; O2SAT 97
[2021-04-06 18:44] VITALS: BP 137/82; PULSE 109; TEMP 36.9; O2SAT 97
[2021-04-06] MEDS: OLANZapine 2.5 MG TABLET PO (19:56)
[2021-04-07] VITALS (10 sets, daily range): BP systolic 124–157; BP diastolic 74–98; PULSE 78–110; RESP 15–21; TEMP 36.3–37.2; O2SAT 95–99
--- NOTE | 2021-04-07 07:05 | MHC.SHP ---
Pre-Procedural Eval Section A Date of Service: 04/07/21 The patient is an INPATIENT: Yes Changes since office visit: Yes New Medical Problems and Yes Patient answered all questions; No Cold of Flu in the past 2 weeks and No Changes in Medication The History & Physical has been completed within 30 days and I have reviewed it.: Yes Section B Chief Complaint: Depression Allergies: Allergies Allergy/AdvReac Type Severity Reaction Status Date / Time No Known Allergies Allergy Unverified 03/23/21 21:09 Plan I have reviewed the history and physical and performed a pertinent physical examination on my patient. No changes have occurred unless specified.
--- NOTE | 2021-04-07 07:06 | HO.ANESPROP2 ---
HPI - Anesthesia Eval Consult details Narrative: 31yo male patient for ECT PMFSH Active Problems Active Problems: All Active Problems (Updated 03/31/21 @ 15:09 by Erlinda Salgado) Bipolar I disorder depressed with catatonic features (Acute) Aspiration pneumonitis (Acute) Catatonia (Acute) Routine medical exam (Acute) Family History Family history of problems with anesthesia: No Surgical History History of Problems with Anesthesia: No Social History Social History Household Members: Family Housing: House Patient Tobacco Use Status: Never used Tobacco Use of substances other than those prescribed or required for medical reasons: No Currently Displaying Signs/Symptoms of Drug Intoxication Withdrawal: No Any prior treatment program specific to substance use: No Are you DNR?: No Advance Directives: No Advance Directives Information Provided: No Do you have thoughts of harming others: None Do you have a plan to hurt others: No Plan Recently lost weight without trying: No How much weight loss: Unsure service: No Sexual orientation: Did not discuss Meds Allergies Allergy/AdvReac Type Severity Reaction Status Date / Time No Known Allergies Allergy Unverified 03/23/21 21:09 Active Medications: Current Medications Acetaminophen (Acetaminophen 325 Mg Tablet) 650 mg PO Q6H PRN PRN Reason: Headache/Pain Mild Scale (1-3) Last Admin: 03/30/21 19:03 Dose: 650 mg Documented by: Al Hydroxide/Mg Hydroxide (Magnesium Hydrox/Alum Hydrox 30 Ml Oral.Susp) 30 ml PO Q6H PRN PRN Reason: Heartburn/Nausea Hydroxyzine HCl (Hydroxyzine Hcl 25 Mg Tablet) 25 mg PO BEDTIME PRN PRN Reason: Anxiety Lactated Ringer's (Lr) 1,000 mls @ 100 mls/hr IVCONT .Q10H JASON Ibuprofen (Ibuprofen 600 Mg Tablet) 600 mg PO Q6H PRN PRN Reason: Fever >100.4 Last Admin: 03/31/21 20:55 Dose: 600 mg Documented by: Lorazepam (Lorazepam 1 Mg Tablet) 2 mg PO TID JASON Last Admin: 04/06/21 19:56 Dose: 2 mg Documented by: Magnesium Hydroxide (Milk Of Magnesia 30 Ml Oral.Susp) 30 ml PO DAILY PRN PRN Reason: Constipation Olanzapine (Olanzapine 2.5 Mg Tablet) 2.5 mg PO BEDTIME [facility] Last Admin: 04/06/21 19:56 Dose: 2.5 mg Documented by: Omeprazole (Omeprazole 40 Mg Ayush.) 40 mg PO BID@0630,1630 [facility] Last Admin: 04/06/21 15:49 Dose: 40 mg Documented by: Trazodone HCl (Trazodone Hcl 50 Mg Tablet) 50 mg PO BEDTIME PRN PRN Reason: Insomnia Exam Exam Date and Time: April 07, 2021 0706 Height,Weight and Vital Signs: Height 5 ft 3.5 in Weight 63.503 kg Last Vital Signs Temp 97.9 F 04/07/21 06:29 Pulse 95 04/07/21 06:29 Resp 17 04/07/21 06:29 BP 124/85 04/07/21 06:29 Pulse Ox 97 04/07/21 06:29 Pertinent Lab Results Pertinent Lab Results: Laboratory Tests 03/24/21 03/24/21 03/27/21 15:40 15:40 12:45 WBC 5.5 RBC 5.25 Hgb 14.8 Hct 43.7 MCV 83.2 MCH 28.2 MCHC 33.9 RDW 11.9 Plt Count 181 MPV 11.1 Immature Gran % (Auto) 0.4 Neut % (Auto) 59.3 Lymph % (Auto) 30.1 [place] % (Auto) 9.4 Eos % (Auto) 0.4 Baso % (Auto) 0.4 Lymph # (Auto) 1.7 [place] # (Auto) 0.5 Eos # (Auto) 0.0 Baso # (Auto) 0.0 Abs Immat Gran (auto) 0.02 Absolute Neuts (auto) 3.3 Absolute Nucleated RBC 0.000 Nucleated RBC % (auto) 0.0 D-Dimer Sodium 139 Potassium 4.1 Chloride 105 Carbon Dioxide 23 Anion Gap 15 BUN 10 Creatinine 0.85 Estim Creat Clear Calc TNP Estimated GFR > 60 Random Glucose 86 Lactic Acid Calcium 9.5 Total Bilirubin 0.5 AST 19 ALT 28 Alkaline Phosphatase 115 Total Creatine Kinase 71 Total Protein 7.2 Albumin 4.3 COVID-19 ([facility]) Negative COVID-19 Clin Com See Note 03/29/21 03/29/21 03/29/21 13:18 13:18 13:18 WBC 11.1 H RBC 5.12 Hgb 14.4 Hct 42.9 MCV 83.8 MCH 28.1 MCHC 33.6 RDW 11.9 Plt Count 169 MPV 10.6 Immature Gran % (Auto) 0.3 Neut % (Auto) 77.9 H Lymph % (Auto) 11.7 L [place] % (Auto) 9.7 Eos % (Auto) 0.1 Baso % (Auto) 0.3 Lymph # (Auto) 1.3 [place] # (Auto) 1.1 Eos # (Auto) 0.0 Baso # (Auto) 0.0 Abs Immat Gran (auto) 0.03 Absolute Neuts (auto) 8.63 H Absolute Nucleated RBC 0.000 Nucleated RBC % (auto) 0.0 D-Dimer 386 Sodium 143 Potassium 3.7 Chloride 109 H Carbon Dioxide 25 Anion Gap 13 BUN 8 L Creatinine 1.00 Estim Creat Clear Calc 88.5 Estimated GFR > 60 Random Glucose 95 Lactic Acid Calcium 9.1 Total Bilirubin 0.3 AST 13 ALT 16 Alkaline Phosphatase 94 Total Creatine Kinase 312 H D Total Protein 6.9 Albumin 4.0 COVID-19 ([facility]) COVID-19 [employer] 03/29/21 03/30/21 03/30/21 15:13 08:17 08:17 WBC 8.7 RBC 4.70 Hgb 13.1 L Hct 39.3 L MCV 83.6 MCH 27.9 MCHC 33.3 RDW 11.9 Plt Count 177 MPV 11.3 Immature Gran % (Auto) 0.3 Neut % (Auto) 64.1 Lymph % (Auto) 22.3 [place] % (Auto) 12.4 H Eos % (Auto) 0.7 Baso % (Auto) 0.2 Lymph # (Auto) 1.9 [place] # (Auto) 1.1 Eos # (Auto) 0.1 Baso # (Auto) 0.0 Abs Immat Gran (auto) 0.03 Absolute Neuts (auto) 5.57 Absolute Nucleated RBC 0.000 Nucleated RBC % (auto) 0.0 D-Dimer Sodium Potassium Chloride Carbon Dioxide Anion Gap BUN Creatinine Estim Creat Clear Calc Estimated GFR Random Glucose Lactic Acid 1.8 Calcium Total Bilirubin AST ALT Alkaline Phosphatase Total Creatine Kinase 208 H Total Protein Albumin COVID-19 ([facility]) COVID-19 [employer] Com 04/05/21 04/05/21 20:57 20:57 WBC 17.7 H RBC 4.61 Hgb 12.9 L Hct 38.2 L MCV 82.9 MCH 28.0 MCHC 33.8 RDW 11.9 Plt Count 251 D MPV 10.3 Immature Gran % (Auto) 0.6 H Neut % (Auto) 77.4 H Lymph % (Auto) 13.4 L [place] % (Auto) 8.1 Eos % (Auto) 0.2 Baso % (Auto) 0.3 Lymph # (Auto) 2.4 [place] # (Auto) 1.4 H Eos # (Auto) 0.0 Baso # (Auto) 0.1 Abs Immat Gran (auto) 0.10 H Absolute Neuts (auto) 13.7 H Absolute Nucleated RBC 0.000 Nucleated RBC % (auto) 0.0 D-Dimer Sodium 139 Potassium 4.3 Chloride 105 Carbon Dioxide 28 Anion Gap 10 L BUN 17 H D Creatinine 1.15 Estim Creat Clear Calc 76.9 Estimated GFR > 60 Random Glucose 106 Lactic Acid Calcium 9.0 Total Bilirubin 0.4 AST 34 D ALT 84 H Alkaline Phosphatase 90 Total Creatine Kinase Total Protein 6.5 Albumin 3.9 COVID-19 ([facility]) COVID-19 Clin Com Airway Mallampati Class: II TM Dist: >3cm Neck ROM: Full Loose/Missing/Broken Teeth: No Heart: RRR Lungs: CTAB Assessment and Plan Assessment Anesthesia Assessment: Anesthesia Plan Discussed and Chart Reviewed Final Anesthetic Review Family History of Problems with Anesthesia: No History of Problems with Anesthesia: No NPO: Yes ASA Class: III Final Preanesthetic Review: No Changes in Pt Med Stat, Meds/Allgs Chart Reviewed, Consent Obtained/Reviewed and Anes Risks/Benef Reviewed Patient Risk: Intermediate Procedure Risk: Intermediate Assessment/Block/Sedation in SS: Assess/Block/Sedation-SS Anesthetic Plan Anesthetic Plan: GA Disposition: Standard PACU and Inp. Admit - Standard Bed
--- NOTE | 2021-04-07 07:32 | HO.ECTPROC ---
ECT Procedure Note Diagnosis/Treatment Date of Service: 04/07/21 Diagnosis: Catatonia Previous ECT Date: 04/05/21 Current Treatment Number: 4 Treatment: Series Interval Clinical Notes: pt generally tolerating ect case reviewed with anesthesia lower succ cont incentine spirometry robinal o.4 do procedure sitting up to prevent any aspiration of secretions no propofol post to dec sedation ECT Settings Device: THYMATRON DGx Electrode Placement: Rt temporal/ Lt frontal Program/Pulse Width: 0.50 Energy Percent: 80 Seizure Duration By EEG (in seconds): 38 Medications Administration General Anesthetic: Etomidate (18) Muscle Relaxant: Succinylcholine (80) Ancillary Medications Analgesics: Torodol - Pre ECT Anti-emetics: Zofran - Pre ECT Cardiovascular Medications: Glycopyrrolate (0.4) Airway Management Airway Management: Bag Mask Ventilation Treatment Recommendations No Changes Recommended: No change Notes: see changes Pt Tolerated Procedure w/o Issue: Yes
--- NOTE | 2021-04-07 07:55 | PC.NURSE ---
As directed by Dr Godoy, patient used incentive spirometer. 5 inhales total with max of 2000 mL. Procedure tolerated well with patient sitting upright. LS clear. O2 sats 96% on room air. Occasional cough with minimal secretions. No respiratory distress.
[2021-04-07] MEDS: LORazepam 1 MG TABLET 2 MG PO ×3 (09:29→20:07)
[2021-04-07] MEDS: Omeprazole 40 MG CAPSULE.DR PO ×2 (09:29→17:45)
--- NOTE | 2021-04-07 13:04 | P.PNPSI_ITS ---
Subjective Subjective Date of Service: 04/07/21 Reason For Visit: Depression Subjective Notes: Section 8 Interim History: Pt had ECT #4 today. Some brief confusion after in terms of place but quickly reoriented. Pt has been intermittently out of bed today. He continues to attend to some groups. 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 Pt reports sleeping and eating well. He reports feeling somewhat tired and hoping to rest a little bit. He denies SOB, afebrile. His eye contact is somewhat intense and affect constricted in range but improving. Aspiration Pneumonia- last day of antibiotics is today. No fever, no SOB, no cough, no chest pain. Medication Compliance: Yes Attending Groups: Intermittent Review of Systems Acute medical concerns: No Review of Systems Review of Systems Unremarkable Yes all other systems are reviewed and are negative and Unobtainable due to mental status Mental Status Exam Mental Status Exam Narrative: Appearance: casually groomed, fair hygiene in NAD Behavior:smiles at times, psychomotor:less retardation Speech: clear, increasingly more spontaneous, soft tone, less delayed response. Thought process:appropriate response to question with single words, no loose associations Thought content: no overt psychosis, feeling better, trying to understands what has happened to him for the past several months. Mood: okay Affect: brightens at times, does have constricted affect, mask like affect SI:denies HI:denies VH/AH:none Delusions:none Insight/judgment:improving Memory/cog:alert, oriented to place, month, date, year. Diagnostics Vital Signs (24Hr): Vital Signs - 24 hr 04/06/21 18:44 04/07/21 06:29 04/07/21 07:26 Temperature 98.4 F 97.9 F 97.7 F Pulse Rate 109 H 95 110 H Respiratory Rate 17 21 H Blood Pressure 137/82 124/85 157/88 H Pulse Oximetry 97 97 99 04/07/21 07:31 04/07/21 07:36 04/07/21 07:42 Temperature Pulse Rate 101 H 102 H 102 H Respiratory Rate 16 16 15 Blood Pressure 147/98 H 131/91 H 137/75 Pulse Oximetry 96 96 95 04/07/21 07:57 04/07/21 08:00 04/07/21 08:19 Temperature 98.9 F 97.7 F Pulse Rate 97 78 87 Respiratory Rate 16 16 17 Blood Pressure 127/87 129/82 130/88 Pulse Oximetry 95 97 98 04/07/21 09:36 Temperature 98.9 F Pulse Rate 78 Respiratory Rate 16 Blood Pressure 129/82 Pulse Oximetry 97 Body Mass Index 24.4 Labs Results: 04/05/21 20:57 04/05/21 20:57 Labs: Laboratory Results - last 48 hr 04/05/21 04/05/21 20:57 20:57 WBC 17.7 H RBC 4.61 Hgb 12.9 L Hct 38.2 L MCV 82.9 MCH 28.0 MCHC 33.8 RDW 11.9 Plt Count 251 D MPV 10.3 Immature Gran % (Auto) 0.6 H Neut % (Auto) 77.4 H Lymph % (Auto) 13.4 L [place] % (Auto) 8.1 Eos % (Auto) 0.2 Baso % (Auto) 0.3 Lymph # (Auto) 2.4 [place] # (Auto) 1.4 H Eos # (Auto) 0.0 Baso # (Auto) 0.1 Abs Immat Gran (auto) 0.10 H Absolute Neuts (auto) 13.7 H Absolute Nucleated RBC 0.000 Nucleated RBC % (auto) 0.0 Sodium 139 Potassium 4.3 Chloride 105 Carbon Dioxide 28 Anion Gap 10 L BUN 17 H D Creatinine 1.15 Estim Creat Clear Calc 76.9 Estimated GFR > 60 Random Glucose 106 Calcium 9.0 Total Bilirubin 0.4 AST 34 D ALT 84 H Alkaline Phosphatase 90 Total Protein 6.5 Albumin 3.9 Imaging Radiology Impressions: ITS Impressions Chest X-Ray 03/29/21 14:21 IMPRESSION: No acute disease. Chest CT 03/29/21 15:36 IMPRESSION: 1. Coarsening bronchovascular markings right lower lobe with 1 bronchiolar mucous plugging and some fine tree-in-bud acinar opacities suggesting sequela from aspiration. Subsegmental atelectasis left posterior base. Trace right effusion. No adenopathy. 2. No lobar or segmental airspace consolidation. 3. Solitary nodule right middle lobe under 4 mm. No additional follow-up required in low risk patient. Medications Medications Current Medications Acetaminophen (Acetaminophen 325 Mg Tablet) 650 mg PO Q6H PRN PRN Reason: Headache/Pain Mild Scale (1-3) Last Admin: 03/30/21 19:03 Dose: 650 mg Documented by: Al Hydroxide/Mg Hydroxide (Magnesium Hydrox/Alum Hydrox 30 Ml Oral.Susp) 30 ml PO Q6H PRN PRN Reason: Heartburn/Nausea Hydroxyzine HCl (Hydroxyzine Hcl 25 Mg Tablet) 25 mg PO BEDTIME PRN PRN Reason: Anxiety Ibuprofen (Ibuprofen 600 Mg Tablet) 600 mg PO Q6H PRN PRN Reason: Fever >100.4 Last Admin: 03/31/21 20:55 Dose: 600 mg Documented by: Lorazepam (Lorazepam 1 Mg Tablet) 2 mg PO TID [facility] Last Admin: 04/07/21 14:57 Dose: 2 mg Documented by: Magnesium Hydroxide (Milk Of Magnesia 30 Ml Oral.Susp) 30 ml PO DAILY PRN PRN Reason: Constipation Olanzapine (Olanzapine 2.5 Mg Tablet) 2.5 mg PO BEDTIME [facility] Last Admin: 04/06/21 19:56 Dose: 2.5 mg Documented by: Omeprazole (Omeprazole 40 Mg Capsule.Dr) 40 mg PO BID@0630,1630 [facility] Last Admin: 04/07/21 09:29 Dose: 40 mg Documented by: Trazodone HCl (Trazodone Hcl 50 Mg Tablet) 50 mg PO BEDTIME PRN PRN Reason: Insomnia Allergies Allergies Allergy/AdvReac Type Severity Reaction Status Date / Time No Known Allergies Allergy Unverified 03/23/21 21:09 Assessment & Plan Assessment & Plan (1) Bipolar I disorder depressed with catatonic features: Status: Acute Code(s): F31.30 - Bipolar disorder, current episode depressed, mild or moderate severity, unspecified; F06.1 - Catatonic disorder due to known physiological condition (2) Aspiration pneumonitis: Status: Acute Code(s): J69.0 - Pneumonitis due to inhalation of food and vomit Assessment and Plan: On aumentin for 7 days. Assessment and Plan: Mr. Carcamo is a 30 year-old male admitted on Section 8 from [facility] for tx of catatonia. Pt's has presented with symptoms of tenriism preoccupation followed by catatonia since 05/2020. /- speech more spontaneous, fluent, less monosyllabic, less psychomotor retardation, no acute distress PLAN 1. Section 8, 15 minutes checks for safety. 2. Catatonia- ECT #3 on 04/05/21. Continue Ativan to 2mg po TID- monitor worsening of catatonia. Continue olanzapine 2.5mg po qhs may titrate.. #. Aspiration Pneumonia- on aumentin for 7 days (last day 04/05), no h ypotension, no signs of sepsis, no SOB, o2sat >97% on room air 3. father-next of kin informed of pneumonia, tx plan. I spent minutes with the patient and/or on the patient floor today, greater than?50% of which was spent counseling/coordinating care. Reason for contiued inpatient stay Substantial Risk for: inability to function
[2021-04-07] MEDS: OLANZapine 2.5 MG TABLET PO (20:07)
[2021-04-08] MEDS: Omeprazole 40 MG CAPSULE.DR PO ×2 (08:49→16:34)
[2021-04-08] MEDS: LORazepam 1 MG TABLET 2 MG PO ×2 (08:49→14:13)
--- NOTE | 2021-04-08 09:06 | P.PNPSI_ITS ---
Subjective Subjective Date of Service: 04/08/21 Reason For Visit: Depression Subjective Notes: Conditional Voluntary Medication Compliance: Yes Side effects from medications: No Attending Groups: Yes Review of Systems Acute medical concerns: No Medical Review of Systems: unchanged Review of Systems Review of Systems Unremarkable Yes all other systems are reviewed and are negative and Unobtainable due to mental status Mental Status Exam Mental Status Exam Narrative: Appearance: casually groomed, fair hygiene in NAD Behavior:smiles at times, psychomotor:less retardation Speech: clear, increasingly more spontaneous, soft tone, less delayed response. Thought process:appropriate response to question with single words, no loose associations Thought content: no overt psychosis, feeling better, trying to understands what has happened to him for the past several months. Mood: okay Affect: brightens at times, does have constricted affect, mask like affect SI:denies HI:denies VH/AH:none Delusions:none Insight/judgment:improving Memory/cog:alert, oriented to place, month, date, year. Diagnostics Vital Signs (24Hr): Vital Signs - 24 hr 04/07/21 09:36 04/07/21 16:00 Temperature 98.9 F 97.4 F Pulse Rate 78 84 Respiratory Rate 16 16 Blood Pressure 129/82 128/74 Pulse Oximetry 97 98 Body Mass Index 24.4 Labs Results: 04/05/21 20:57 04/05/21 20:57 Imaging Radiology Impressions: ITS Impressions Chest X-Ray 03/29/21 14:21 IMPRESSION: No acute disease. Chest CT 03/29/21 15:36 IMPRESSION: 1. Coarsening bronchovascular markings right lower lobe with 1 bronchiolar mucous plugging and some fine tree-in-bud acinar opacities suggesting sequela from aspiration. Subsegmental atelectasis left posterior base. Trace right effusion. No adenopathy. 2. No lobar or segmental airspace consolidation. 3. Solitary nodule right middle lobe under 4 mm. No additional follow-up required in low risk patient. Medications Medications Current Medications Acetaminophen (Acetaminophen 325 Mg Tablet) 650 mg PO Q6H PRN PRN Reason: Headache/Pain Mild Scale (1-3) Last Admin: 03/30/21 19:03 Dose: 650 mg Documented by: Al Hydroxide/Mg Hydroxide (Magnesium Hydrox/Alum Hydrox 30 Ml Oral.Susp) 30 ml PO Q6H PRN PRN Reason: Heartburn/Nausea Hydroxyzine HCl (Hydroxyzine Hcl 25 Mg Tablet) 25 mg PO BEDTIME PRN PRN Reason: Anxiety Lactated Ringer's (Lr) 1,000 mls @ 50 mls/hr IVCONT .Q20H JASON Ibuprofen (Ibuprofen 600 Mg Tablet) 600 mg PO Q6H PRN PRN Reason: Fever >100.4 Last Admin: 03/31/21 20:55 Dose: 600 mg Documented by: Lorazepam (Lorazepam 1 Mg Tablet) 2 mg PO TID [facility] Last Admin: 04/08/21 08:49 Dose: 2 mg Documented by: Magnesium Hydroxide (Milk Of Magnesia 30 Ml Oral.Susp) 30 ml PO DAILY PRN PRN Reason: Constipation Olanzapine (Olanzapine 2.5 Mg Tablet) 2.5 mg PO BEDTIME [facility] Last Admin: 04/07/21 20:07 Dose: 2.5 mg Documented by: Omeprazole (Omeprazole 40 Mg Capsule.Dr) 40 mg PO BID@0630,1630 [facility] Last Admin: 04/08/21 08:49 Dose: 40 mg Documented by: Trazodone HCl (Trazodone Hcl 50 Mg Tablet) 50 mg PO BEDTIME PRN PRN Reason: Insomnia Allergies Allergies Allergy/AdvReac Type Severity Reaction Status Date / Time No Known Allergies Allergy Unverified 03/23/21 21:09 Assessment & Plan Assessment & Plan (1) Bipolar I disorder depressed with catatonic features: Status: Acute Code(s): F31.30 - Bipolar disorder, current episode depressed, mild or moderate severity, unspecified; F06.1 - Catatonic disorder due to known physiological condition (2) Aspiration pneumonitis: Status: Acute Code(s): J69.0 - Pneumonitis due to inhalation of food and vomit Assessment and Plan: On aumentin for 7 days. Assessment and Plan: Mr. Carcamo is a 30 year-old male admitted on Section 8 from [facility] for tx of catatonia. Pt's has presented with symptoms of restorationism preoccupation followed by catatonia since 05/2020. 03/30- speech more spontaneous, fluent, less monosyllabic, less psychomotor retardation, no acute distress PLAN 1. Section 8, 15 minutes checks for safety. 2. Catatonia- ECT #3 on 04/05/21. Continue Ativan to 2mg po TID- monitor worsening of catatonia. Continue olanzapine 2.5mg po qhs may titrate.. #. Aspiration Pneumonia- on aumentin for 7 days (last day 04/05), no hypotension, no signs of sepsis, no SOB, o2sat >97% on room air 3. father-next of kin informed of pneumonia, tx plan. I spent ____15__ minutes with the patient and/or on the patient floor today, greater than?50% of which was spent counseling/coordinating care. Reason for contiued inpatient stay Substantial Risk for: other
[2021-04-08 16:30] VITALS: BP 128/80; PULSE 85; RESP 16; TEMP 36.2; O2SAT 95
[2021-04-08 20:00] VITALS: BP 123/56; PULSE 89; RESP 16; TEMP 36.3; O2SAT 95
[2021-04-08] MEDS: OLANZapine 2.5 MG TABLET PO (20:16)
[2021-04-09 06:55] VITALS: BP 127/72; PULSE 85; TEMP 37.1; O2SAT 95
--- NOTE | 2021-04-09 07:49 | P.PNPSI_ITS ---
Subjective Subjective Date of Service: 04/09/21 Reason For Visit: Depression Interim History: Patient was seen and discussed in rounds. He is attending groups. He is visible but somewhat guarded. He continues to be on antibiotics for the aspiration pneumonia. Did not attend to his ADLs no SI. No hallucinations reported. No complaints or side effects. He appears to be improved with ECT treatment. No changes were made today Side effects from medications: No Attending Groups: Yes Review of Systems Acute medical concerns: Yes aspiration pneumonia Review of Systems Review of Systems Unremarkable Yes all other systems are reviewed and are negative and Unobtainable due to mental status Mental Status Exam Mental Status Exam Narrative: Appearance: casually groomed, fair hygiene in NAD Behavior:smiles at times, psychomotor:less retardation Speech: clear, increasingly more spontaneous, soft tone, less delayed response. Thought process:appropriate response to question with single words, no loose associations Thought content: no overt psychosis, feeling better, trying to understands what has happened to him for the past several months. Mood: okay Affect: brightens at times, does have constricted affect, mask like affect SI:denies HI:denies VH/AH:none Delusions:none Insight/judgment:improving Memory/cog:alert, oriented to place, month, date, year. Diagnostics Vital Signs (24Hr): Vital Signs - 24 hr 04/08/21 16:30 04/08/21 20:00 04/09/21 06:55 Temperature 97.2 F 97.4 F 98.8 F Pulse Rate 85 89 85 Respiratory Rate 16 16 Blood Pressure 128/80 123/56 L 127/72 Pulse Oximetry 95 95 95 Body Mass Index 24.4 Labs Results: 04/05/21 20:57 04/05/21 20:57 Imaging Radiology Impressions: ITS Impressions Chest X-Ray 03/29/21 14:21 IMPRESSION: No acute disease. Chest CT 03/29/21 15:36 IMPRESSION: 1. Coarsening bronchovascular markings right lower lobe with 1 bronchiolar mucous plugging and some fine tree-in-bud acinar opacities suggesting sequela from aspiration. Subsegmental atelectasis left posterior base. Trace right effusion. No adenopathy. 2. No lobar or segmental airspace consolidation. 3. Solitary nodule right middle lobe under 4 mm. No additional follow-up required in low risk patient. Medications Medications Current Medications Acetaminophen (Acetaminophen 325 Mg Tablet) 650 mg PO Q6H PRN PRN Reason: Headache/Pain Mild Scale (1-3) Last Admin: 03/30/21 19:03 Dose: 650 mg Documented by: Al Hydroxide/Mg Hydroxide (Magnesium Hydrox/Alum Hydrox 30 Ml Oral.Susp) 30 ml PO Q6H PRN PRN Reason: Heartburn/Nausea Hydroxyzine HCl (Hydroxyzine Hcl 25 Mg Tablet) 25 mg PO BEDTIME PRN PRN Reason: Anxiety Lactated Ringer's (Lr) 1,000 mls @ 50 mls/hr IVCONT .Q20H JASON Ibuprofen (Ibuprofen 600 Mg Tablet) 600 mg PO Q6H PRN PRN Reason: Fever >100.4 Last Admin: 03/31/21 20:55 Dose: 600 mg Documented by: Magnesium Hydroxide (Milk Of Magnesia 30 Ml Oral.Susp) 30 ml PO DAILY PRN PRN Reason: Constipation Olanzapine (Olanzapine 2.5 Mg Tablet) 2.5 mg PO BEDTIME [facility] Last Admin: 04/08/21 20:16 Dose: 2.5 mg Documented by: Omeprazole (Omeprazole 40 Mg Capsule.Dr) 40 mg PO BID@0630,1630 [facility] Last Admin: 04/08/21 16:34 Dose: 40 mg Documented by: Trazodone HCl (Trazodone Hcl 50 Mg Tablet) 50 mg PO BEDTIME PRN PRN Reason: Insomnia Allergies Allergies Allergy/AdvReac Type Severity Reaction Status Date / Time No Known Allergies Allergy Unverified 03/23/21 21:09 Assessment & Plan Assessment & Plan (1) Bipolar I disorder depressed with catatonic features: Status: Acute Code(s): F31.30 - Bipolar disorder, current episode depressed, mild or moderate severity, unspecified; F06.1 - Catatonic disorder due to known physiological condition (2) Aspiration pneumonitis: Status: Acute Code(s): J69.0 - Pneumonitis due to inhalation of food and vomit Assessment and Plan: On aumentin for 7 days. Assessment and Plan: Mr. Carcamo is a 30 year-old male admitted on Section 8 from [facility] for tx of catatonia. Pt's has presented with symptoms of jain preoccupation followed by catatonia since 05/2020. 03/30- speech more spontaneous, fluent, less monosyllabic, less psychomotor retardation, no acute distress PLAN 1. Section 8, 15 minutes checks for safety. 2. Catatonia- ECT #3 on 04/05/21. Continue Ativan to 2mg po TID- monitor worsening of catatonia. Continue olanzapine 2.5mg po qhs may titrate.. #. Aspiration Pneumonia- on aumentin for 7 days (last day 04/05), no hypotension, no signs of sepsis, no SOB, o2sat >97% on room air 3. father-next of kin informed of pneumonia, tx plan. 04/09/2021 continue current regimen and plans with no changes I spent minutes with the patient and/or on the patient floor today, greater than?50% of which was spent counseling/coordinating care. Reason for contiued inpatient stay Substantial Risk for: med/psych decompensation
[2021-04-09] MEDS: Omeprazole 40 MG CAPSULE.DR PO ×2 (08:24→16:57)
[2021-04-09 11:54] VITALS: BP 120/65; PULSE 87; TEMP 36.6
[2021-04-09] MEDS: OLANZapine 2.5 MG TABLET PO (19:03)
[2021-04-09 20:00] VITALS: RESP 16
[2021-04-10] VITALS (10 sets, daily range): BP systolic 127–134; BP diastolic 74–85; PULSE 88–110; RESP 15–18; TEMP 36.9–37.3; O2SAT 95–96
--- NOTE | 2021-04-10 05:47 | PC.NURSE ---
6am Hour Morning Medications Held due to ECT
--- NOTE | 2021-04-10 06:59 | HO.ANESPROP2 ---
[facility] Active Problems Active Problems: All Active Problems (Updated 03/31/21 @ 15:09 by Erlinda Salgado) Bipolar I disorder depressed with catatonic features (Acute) Aspiration pneumonitis (Acute) Catatonia (Acute) Routine medical exam (Acute) Family History Family history of problems with anesthesia: No Surgical History History of Problems with Anesthesia: No Social History Social History Household Members: Family Housing: House Patient Tobacco Use Status: Never used Tobacco Use of substances other than those prescribed or required for medical reasons: No Currently Displaying Signs/Symptoms of Drug Intoxication Withdrawal: No Any prior treatment program specific to substance use: No Are you DNR?: No Advance Directives: No Advance Directives Information Provided: No Do you have thoughts of harming others: None Do you have a plan to hurt others: No Plan Recently lost weight without trying: No How much weight loss: Unsure service: No Sexual orientation: Did not discuss Meds Allergies Allergy/AdvReac Type Severity Reaction Status Date / Time No Known Allergies Allergy Unverified 03/23/21 21:09 Active Medications: Current Medications Acetaminophen (Acetaminophen 325 Mg Tablet) 650 mg PO Q6H PRN PRN Reason: Headache/Pain Mild Scale (1-3) Last Admin: 03/30/21 19:03 Dose: 650 mg Documented by: Al Hydroxide/Mg Hydroxide (Magnesium Hydrox/Alum Hydrox 30 Ml Oral.Susp) 30 ml PO Q6H PRN PRN Reason: Heartburn/Nausea Hydroxyzine HCl (Hydroxyzine Hcl 25 Mg Tablet) 25 mg PO BEDTIME PRN PRN Reason: Anxiety Lactated Ringer's (Lr) 1,000 mls @ 50 mls/hr IVCONT .Q20H JASON Ibuprofen (Ibuprofen 600 Mg Tablet) 600 mg PO Q6H PRN PRN Reason: Fever >100.4 Last Admin: 03/31/21 20:55 Dose: 600 mg Documented by: Magnesium Hydroxide (Milk Of Magnesia 30 Ml Oral.Susp) 30 ml PO DAILY PRN PRN Reason: Constipation Olanzapine (Olanzapine 2.5 Mg Tablet) 2.5 mg PO BEDTIME JASON Last Admin: 04/09/21 19:03 Dose: 2.5 mg Documented by: Omeprazole (Omeprazole 40 Mg Capsule.) 40 mg PO BID@0630,1630 [facility] Last Admin: 04/09/21 16:57 Dose: 40 mg Documented by: Trazodone HCl (Trazodone Hcl 50 Mg Tablet) 50 mg PO BEDTIME PRN PRN Reason: Insomnia Exam Exam Date and Time: April 10, 2021 0659 Height,Weight and Vital Signs: Height 5 ft 3.5 in Weight 63.503 kg Last Vital Signs Temp 98.7 F 04/10/21 05:40 Pulse 102 H 04/10/21 05:40 Resp 18 04/10/21 05:40 BP 130/82 04/10/21 05:40 Pulse Ox 95 04/10/21 05:40 Pertinent Lab Results Pertinent Lab Results: Laboratory Tests 03/24/21 03/24/21 03/27/21 15:40 15:40 12:45 WBC 5.5 RBC 5.25 Hgb 14.8 Hct 43.7 MCV 83.2 MCH 28.2 MCHC 33.9 RDW 11.9 Plt Count 181 MPV 11.1 Immature Gran % (Auto) 0.4 Neut % (Auto) 59.3 Lymph % (Auto) 30.1 [place] % (Auto) 9.4 Eos % (Auto) 0.4 Baso % (Auto) 0.4 Lymph # (Auto) 1.7 [place] # (Auto) 0.5 Eos # (Auto) 0.0 Baso # (Auto) 0.0 Abs Immat Gran (auto) 0.02 Absolute Neuts (auto) 3.3 Absolute Nucleated RBC 0.000 Nucleated RBC % (auto) 0.0 D-Dimer Sodium 139 Potassium 4.1 Chloride 105 Carbon Dioxide 23 Anion Gap 15 BUN 10 Creatinine 0.85 Estim Creat Clear Calc TNP Estimated GFR > 60 Random Glucose 86 Lactic Acid Calcium 9.5 Total Bilirubin 0.5 AST 19 ALT 28 Alkaline Phosphatase 115 Total Creatine Kinase 71 Total Protein 7.2 Albumin 4.3 COVID-19 ([facility]) Negative COVID-19 Clin Com See Note 03/29/21 03/29/21 03/29/21 13:18 13:18 13:18 WBC 11.1 H RBC 5.12 Hgb 14.4 Hct 42.9 MCV 83.8 MCH 28.1 MCHC 33.6 RDW 11.9 Plt Count 169 MPV 10.6 Immature Gran % (Auto) 0.3 Neut % (Auto) 77.9 H Lymph % (Auto) 11.7 L [place] % (Auto) 9.7 Eos % (Auto) 0.1 Baso % (Auto) 0.3 Lymph # (Auto) 1.3 [place] # (Auto) 1.1 Eos # (Auto) 0.0 Baso # (Auto) 0.0 Abs Immat Gran (auto) 0.03 Absolute Neuts (auto) 8.63 H Absolute Nucleated RBC 0.000 Nucleated RBC % (auto) 0.0 D-Dimer 386 Sodium 143 Potassium 3.7 Chloride 109 H Carbon Dioxide 25 Anion Gap 13 BUN 8 L Creatinine 1.00 Estim Creat Clear Calc 88.5 Estimated GFR > 60 Random Glucose 95 Lactic Acid Calcium 9.1 Total Bilirubin 0.3 AST 13 ALT 16 Alkaline Phosphatase 94 Total Creatine Kinase 312 H D Total Protein 6.9 Albumin 4.0 COVID-19 ([facility]) COVID-19 Clin Com 03/29/21 03/30/21 03/30/21 15:13 08:17 08:17 WBC 8.7 RBC 4.70 Hgb 13.1 L Hct 39.3 L MCV 83.6 MCH 27.9 MCHC 33.3 RDW 11.9 Plt Count 177 MPV 11.3 Immature Gran % (Auto) 0.3 Neut % (Auto) 64.1 Lymph % (Auto) 22.3 [place] % (Auto) 12.4 H Eos % (Auto) 0.7 Baso % (Auto) 0.2 Lymph # (Auto) 1.9 [place] # (Auto) 1.1 Eos # (Auto) 0.1 Baso # (Auto) 0.0 Abs Immat Gran (auto) 0.03 Absolute Neuts (auto) 5.57 Absolute Nucleated RBC 0.000 Nucleated RBC % (auto) 0.0 D-Dimer Sodium Potassium Chloride Carbon Dioxide Anion Gap BUN Creatinine Estim Creat Clear Calc Estimated GFR Random Glucose Lactic Acid 1.8 Calcium Total Bilirubin AST ALT Alkaline Phosphatase Total Creatine Kinase 208 H Total Protein Albumin COVID-19 ([facility]) COVID-19 Clin Com 04/05/21 04/05/21 20:57 20:57 WBC 17.7 H RBC 4.61 Hgb 12.9 L Hct 38.2 L MCV 82.9 MCH 28.0 MCHC 33.8 RDW 11.9 Plt Count 251 D MPV 10.3 Immature Gran % (Auto) 0.6 H Neut % (Auto) 77.4 H Lymph % (Auto) 13.4 L [place] % (Auto) 8.1 Eos % (Auto) 0.2 Baso % (Auto) 0.3 Lymph # (Auto) 2.4 [place] # (Auto) 1.4 H Eos # (Auto) 0.0 Baso # (Auto) 0.1 Abs Immat Gran (auto) 0.10 H Absolute Neuts (auto) 13.7 H Absolute Nucleated RBC 0.000 Nucleated RBC % (auto) 0.0 D-Dimer Sodium 139 Potassium 4.3 Chloride 105 Carbon Dioxide 28 Anion Gap 10 L BUN 17 H D Creatinine 1.15 Estim Creat Clear Calc 76.9 Estimated GFR > 60 Random Glucose 106 Lactic Acid Calcium 9.0 Total Bilirubin 0.4 AST 34 D ALT 84 H Alkaline Phosphatase 90 Total Creatine Kinase Total Protein 6.5 Albumin 3.9 COVID-19 ([facility]) COVID-19 Clin Com Airway Mallampati Class: II TM Dist: >3cm Neck ROM: Full Heart: rrr Lungs: cta Assessment and Plan Assessment Anesthesia Assessment: Anesthesia Plan Discussed and Chart Reviewed Final Anesthetic Review Family History of Problems with Anesthesia: No History of Problems with Anesthesia: No NPO: Yes ASA Class: III Final Preanesthetic Review: No Changes in Pt Med Stat, Meds/Allgs Chart Reviewed and Consent Obtained/Reviewed Patient Risk: Intermediate Procedure Risk: Intermediate Anesthetic Plan Anesthetic Plan: GA Disposition: Standard PACU
--- NOTE | 2021-04-10 07:00 | MHC.SHP ---
Pre-Procedural Eval Section A Date of Service: 04/10/21 The patient is an INPATIENT: Yes Changes since office visit: No Cold of Flu in the past 2 weeks, No New Medical Problems, No Changes in Medication and No Patient answered all questions The History & Physical has been completed within 30 days and I have reviewed it.: Yes Section B Chief Complaint: Depression Allergies: Allergies Allergy/AdvReac Type Severity Reaction Status Date / Time No Known Allergies Allergy Unverified 03/23/21 21:09 Plan I have reviewed the history and physical and performed a pertinent physical examination on my patient. No changes have occurred unless specified.
--- NOTE | 2021-04-10 07:01 | HO.ECTPROC ---
ECT Procedure Note Diagnosis/Treatment Date of Service: 04/10/21 Diagnosis: Catatonia Previous ECT Date: 04/07/21 Current Treatment Number: 5 Treatment: Series Interval Clinical Notes: The patient is verbal, denies new symptoms, he stated feeling better. No Ativan given since 04/08 ECT Settings Device: THYMATRON DGx Electrode Placement: Bitemporal Program/Pulse Width: 0.50 Energy Percent: 80 Seizure Duration By EEG (in seconds): 0 (Not registered by EEG, but seizure activity recorded until 55s) By Motor Observation (in seconds): 32 Medications Administration General Anesthetic: Etomidate (16) Muscle Relaxant: Succinylcholine (80) Ancillary Medications Analgesics: Torodol - Pre ECT Anti-emetics: Zofran - Pre ECT Cardiovascular Medications: Glycopyrrolate (0.4) Airway Management Airway Management: Bag Mask Ventilation Treatment Recommendations No Changes Recommended: No change Pt Tolerated Procedure w/o Issue: Yes
[2021-04-10] MEDS: Omeprazole 40 MG CAPSULE.DR PO ×2 (09:22→16:07)
[2021-04-10] MEDS: LORazepam 1 MG TABLET PO ×2 (13:06→21:45)
--- NOTE | 2021-04-10 13:12 | HO.PSYCHPN ---
Subjective Subjective Date of Service: 04/10/21 Reason For Visit: Depression Subjective Notes: Section 8 Interim History: Pt had ECT #5 today. Pt somewhat confused as to when was last time he saw his father coming to visit. He is sitting in day room. He reports doing well. Affect constricted. He reports sleeping and eating well. He denies any pain. He reports constipation but does not know when was last BM. Per nursing, pt has been more visible, has attended some groups, not very social with peers. He denies SI/HI No over delusional content reported. Medication Compliance: Yes Side effects from medications: No Review of Systems Review of Systems Unremarkable Yes all other systems are reviewed and are negative and Unobtainable due to mental status Mental Status Exam Mental Status Exam Narrative: Appearance: casually groomed, fair hygiene in NAD Behavior:smiles at times, psychomotor:less retardation Speech: clear, increasingly more spontaneous, soft tone, less delayed response. Thought process:appropriate response to question with single words, no loose associations Thought content: no overt psychosis, feeling better, trying to understands what has happened to him for the past several months. Mood: okay Affect: brightens at times, does have constricted affect, mask like affect SI:denies HI:denies VH/AH:none Delusions:none Insight/judgment:improving Memory/cog:alert, oriented to place, month, date, year. Diagnostics Vital Signs (24Hr): Vital Signs - 24 hr 04/09/21 20:00 04/10/21 05:40 04/10/21 07:00 Temperature 98.7 F 98.8 F Pulse Rate 102 H 95 Respiratory Rate 16 18 16 Blood Pressure 130/82 134/81 Pulse Oximetry 95 95 04/10/21 07:54 04/10/21 07:59 04/10/21 08:04 Temperature 98.8 F Pulse Rate 110 H 103 H 101 H Respiratory Rate 16 16 16 Blood Pressure 133/81 127/83 131/81 Pulse Oximetry 96 96 96 04/10/21 08:09 04/10/21 08:24 04/10/21 08:39 Temperature 98.4 F Pulse Rate 102 H 102 H 89 Respiratory Rate 17 15 17 Blood Pressure 132/85 130/81 130/77 Pulse Oximetry 96 95 96 04/10/21 09:06 04/10/21 09:27 Temperature 99.2 F 99.2 F Pulse Rate 88 88 Respiratory Rate 16 Blood Pressure 130/74 130/74 Pulse Oximetry 95 Body Mass Index 24.4 Labs Results: 04/05/21 20:57 04/05/21 20:57 Imaging Radiology Impressions: ITS Impressions Chest X-Ray 03/29/21 14:21 IMPRESSION: No acute disease. Chest CT 03/29/21 15:36 IMPRESSION: 1. Coarsening bronchovascular markings right lower lobe with 1 bronchiolar mucous plugging and some fine tree-in-bud acinar opacities suggesting sequela from aspiration. Subsegmental atelectasis left posterior base. Trace right effusion. No adenopathy. 2. No lobar or segmental airspace consolidation. 3. Solitary nodule right middle lobe under 4 mm. No additional follow-up required in low risk patient. Medications Medications Current Medications Acetaminophen (Acetaminophen 325 Mg Tablet) 650 mg PO Q6H PRN PRN Reason: Headache/Pain Mild Scale (1-3) Last Admin: 03/30/21 19:03 Dose: 650 mg Documented by: Al Hydroxide/Mg Hydroxide (Magnesium Hydrox/Alum Hydrox 30 Ml Oral.Susp) 30 ml PO Q6H PRN PRN Reason: Heartburn/Nausea Hydroxyzine HCl (Hydroxyzine Hcl 25 Mg Tablet) 25 mg PO BEDTIME PRN PRN Reason: Anxiety Lactated Ringer's (Lr) 1,000 mls @ 50 mls/hr IVCONT .Q20H [facility] Last Admin: 04/10/21 09:01 Dose: Not Given Documented by: Ibuprofen (Ibuprofen 600 Mg Tablet) 600 mg PO Q6H PRN PRN Reason: Fever >100.4 Last Admin: 03/31/21 20:55 Dose: 600 mg Documented by: Lorazepam (Lorazepam 1 Mg Tablet) 1 mg PO TID [facility] Last Admin: 04/10/21 13:06 Dose: 1 mg Documented by: Magnesium Hydroxide (Milk Of Magnesia 30 Ml Oral.Susp) 30 ml PO DAILY PRN PRN Reason: Constipation Olanzapine (Olanzapine 5 Mg Tablet) 5 mg PO BEDTIME JASON Omeprazole (Omeprazole 40 Mg Capsule.Dr) 40 mg PO BID@0630,1630 [facility] Last Admin: 04/10/21 09:22 Dose: 40 mg Documented by: Trazodone HCl (Trazodone Hcl 50 Mg Tablet) 50 mg PO BEDTIME PRN PRN Reason: Insomnia Allergies Allergies Allergy/AdvReac Type Severity Reaction Status Date / Time No Known Allergies Allergy Unverified 03/23/21 21:09 Assessment & Plan Assessment & Plan (1) Bipolar I disorder depressed with catatonic features: Status: Acute Code(s): F31.30 - Bipolar disorder, current episode depressed, mild or moderate severity, unspecified; F06.1 - Catatonic disorder due to known physiological condition (2) Aspiration pneumonitis: Status: Acute Code(s): J69.0 - Pneumonitis due to inhalation of food and vomit Assessment and Plan: On aumentin for 7 days. Assessment and Plan: Mr. Carcamo is a 30 year-old male admitted on Section 8 from [facility] for tx of catatonia. Pt's has presented with symptoms of mandaeism preoccupation followed by catatonia since 05/2020. 03/30- speech more spontaneous, fluent, less monosyllabic, less psychomotor retardation, no acute distress PLAN 1. Section 8, 15 minutes checks for safety. 2. Catatonia- ECT #5 on 04/10/21. Decrease Ativan to 1mg po TID- monitor worsening of catatonia. Increase olanzapine 5mg po qhs may titrate.. #. Aspiration Pneumonia- on aumentin for 7 days (last day 04/05), no hypotension, no signs of sepsis, no SOB, o2sat >97% on room air 3. father-next of kin informed of pneumonia, tx plan. I spent minutes with the patient and/or on the patient floor today, greater than?50% of which was spent counseling/coordinating care. Reason for contiued inpatient stay Substantial Risk for: inability to function
[2021-04-10] MEDS: OLANZapine 5 MG TABLET PO (21:42)
[2021-04-11] MEDS: Omeprazole 40 MG CAPSULE.DR PO ×2 (05:54→18:24)
[2021-04-11 05:55] VITALS: BP 129/87; PULSE 106; RESP 18; TEMP 37.1; O2SAT 98
[2021-04-11 06:00] VITALS: BP 129/87; PULSE 106; RESP 18; TEMP 37.1; O2SAT 98
[2021-04-11] MEDS: LORazepam 1 MG TABLET PO ×3 (07:59→21:28)
--- NOTE | 2021-04-11 11:05 | HO.PSYCHPN ---
Subjective Subjective Date of Service: 04/11/21 Reason For Visit: Depression Subjective Notes: Section 8 Interim History: Pt has been more visible, still with constricted affect, slight blank stare. He reports doing well. He reports sleeping and eating well. He has been to some groups, poverty of thought noted. He denies any pain. Per nursing, pt has been more visible, has attended some groups, not very social with peers. He denies SI/HI No over delusional content reported. Medication Compliance: Yes Side effects from medications: No Review of Systems Review of Systems Unremarkable Yes all other systems are reviewed and are negative and Unobtainable due to mental status Mental Status Exam Mental Status Exam Narrative: Appearance: casually groomed, fair hygiene in NAD Behavior:smiles at times, psychomotor:less retardation Speech: clear, increasingly more spontaneous, soft tone, less delayed response. Thought process:appropriate response to question with single words, no loose associations Thought content: no overt psychosis, feeling better, trying to understands what has happened to him for the past several months. Mood: okay Affect: brightens at times, does have constricted affect, mask like affect SI:denies HI:denies VH/AH:none Delusions:none Insight/judgment:improving Memory/cog:alert, oriented to place, month, date, year. Diagnostics Vital Signs (24Hr): Vital Signs - 24 hr 04/11/21 05:55 04/11/21 06:00 Temperature 98.8 F 98.8 F Pulse Rate 106 H 106 H Respiratory Rate 18 18 Blood Pressure 129/87 129/87 Pulse Oximetry 98 98 Body Mass Index 24.4 Labs Results: 04/05/21 20:57 04/05/21 20:57 Imaging Radiology Impressions: ITS Impressions Chest X-Ray 03/29/21 14:21 IMPRESSION: No acute disease. Chest CT 03/29/21 15:36 IMPRESSION: 1. Coarsening bronchovascular markings right lower lobe with 1 bronchiolar mucous plugging and some fine tree-in-bud acinar opacities suggesting sequela from aspiration. Subsegmental atelectasis left posterior base. Trace right effusion. No adenopathy. 2. No lobar or segmental airspace consolidation. 3. Solitary nodule right middle lobe under 4 mm. No additional follow-up required in low risk patient. Medications Medications Current Medications Acetaminophen (Acetaminophen 325 Mg Tablet) 650 mg PO Q6H PRN PRN Reason: Headache/Pain Mild Scale (1-3) Last Admin: 03/30/21 19:03 Dose: 650 mg Documented by: Al Hydroxide/Mg Hydroxide (Magnesium Hydrox/Alum Hydrox 30 Ml Oral.Susp) 30 ml PO Q6H PRN PRN Reason: Heartburn/Nausea Hydroxyzine HCl (Hydroxyzine Hcl 25 Mg Tablet) 25 mg PO BEDTIME PRN PRN Reason: Anxiety Lactated Ringer's (Lr) 1,000 mls @ 50 mls/hr IVCONT .Q20H [facility] Last Admin: 04/11/21 07:40 Dose: Not Given Documented by: Ibuprofen (Ibuprofen 600 Mg Tablet) 600 mg PO Q6H PRN PRN Reason: Fever >100.4 Last Admin: 03/31/21 20:55 Dose: 600 mg Documented by: Lorazepam (Lorazepam 1 Mg Tablet) 1 mg PO TID [facility] Last Admin: 04/11/21 07:59 Dose: 1 mg Documented by: Magnesium Hydroxide (Milk Of Magnesia 30 Ml Oral.Susp) 30 ml PO DAILY PRN PRN Reason: Constipation Olanzapine (Olanzapine 5 Mg Tablet) 5 mg PO BEDTIME [facility] Last Admin: 04/10/21 21:42 Dose: 5 mg Documented by: Omeprazole (Omeprazole 40 Mg Capsule.Dr) 40 mg PO BID@0630,1630 [facility] Last Admin: 04/11/21 05:54 Dose: 40 mg Documented by: Trazodone HCl (Trazodone Hcl 50 Mg Tablet) 50 mg PO BEDTIME PRN PRN Reason: Insomnia Allergies Allergies Allergy/AdvReac Type Severity Reaction Status Date / Time No Known Allergies Allergy Unverified 03/23/21 21:09 Assessment & Plan Assessment & Plan (1) Bipolar I disorder depressed with catatonic features: Status: Acute Code(s): F31.30 - Bipolar disorder, current episode depressed, mild or moderate severity, unspecified; F06.1 - Catatonic disorder due to known physiological condition (2) Aspiration pneumonitis: Status: Acute Code(s): J69.0 - Pneumonitis due to inhalation of food and vomit Assessment and Plan: On aumentin for 7 days. Assessment and Plan: Mr. Carcamo is a 30 year-old male admitted on Section 8 from [facility] for tx of catatonia. Pt's has presented with symptoms of presybeterian preoccupation followed by catatonia since 05/2020. 03/30- speech more spontaneous, fluent, less monosyllabic, less psychomotor retardation, no acute distress PLAN 1. Section 8, 15 minutes checks for safety. 2. Catatonia- ECT #5 on 04/10/21. Decrease Ativan to 1mg po TID- monitor worsening of catatonia. Increase olanzapine 5mg po qhs may titrate.. #. Aspiration Pneumonia- on aumentin for 7 days (last day 04/05), no hypotension, no signs of sepsis, no SOB, o2sat >97% on room air 3. father-next of kin informed of pneumonia, tx plan. I spent minutes with the patient and/or on the patient floor today, greater than?50% of which was spent counseling/coordinating care. Reason for contiued inpatient stay Substantial Risk for: inability to function
[2021-04-11 15:54] LABS: MANUAL DIFF FLAG NO
[2021-04-11 15:58] LABS: Basophils Percent Auto 0.5 % (0-2); Eosinophils Absolute Auto 0.1 X10*3/uL (0.0-0.4); Eosinophils Percent Auto 0.9 % (0-4); Hematocrit 46.1 % (42.0-52.0); Hemoglobin 14.9 g/dl (14.0-18.0); Imm Gran Abs Auto 0.04 X10*3/uL (0.00-0.03); Imm Gran Pct Auto 0.5 % (0.0-0.4); Lymphocytes Absolute Auto 2.6 X10*3/uL (1.2-4.9); Lymphocytes Percent Auto 31.9 % (20-40); Mean Corpuscular HGB Conc 32.3 g/dl (31.0-36.0); Mean Corpuscular Hemoglobin 27.5 pg (27.0-33.0); Mean Corpuscular Volume 85.2 fL (80.0-98.0); Mean Platelet Volume 10.3 fL (9.4-12.4); Monocytes Absolute Auto 0.9 X10*3/uL (0.1-1.2); Monocytes Percent Auto 11.2 % (2-11); Neutrophils Absolute Auto 4.4 x10*3/uL (2.0-8.3); Platelet Count 321 X10*3/uL (160-400); Red Blood Count 5.41 X10*6/uL (4.60-5.80); Red Cell Distribution Width 12.7 % (11.0-16.0); White Blood Count 8.1 X10*3/uL (4.8-10.8)
[2021-04-11 16:21] LABS: Alanine Aminotransferase 48 U/L (0-40); Albumin Level 4.5 g/dL (3.5-5.0); Alkaline Phosphatase 99 U/L (39-117); Anion Gap 12 (12-20); Aspartate Amino Transferase 19 U/L (5-37); Bilirubin Total 0.5 mg/dL (0.0-1.0); Blood Urea Nitrogen 10 mg/dL (9-16); Calcium 9.7 mg/dL (8.4-10.2); Carbon Dioxide 29 mmol/L (22-29); Chloride 104 mmol/L (96-108); Creatinine Clr Calc Pharmacy 80.4; Estimated Glomerular Filt Rate > 60; Glucose Random 87 mg/dL (60-115); Potassium 4.2 mmol/L (3.3-5.1); Sodium 141 mmol/L (135-145); Total Protein 7.8 g/dL (6.5-8.0)
[2021-04-11 18:00] VITALS: BP 122/91; PULSE 89; RESP 16; TEMP 37.1; O2SAT 99
[2021-04-11] MEDS: OLANZapine 5 MG TABLET PO (21:27)
[2021-04-12] VITALS (10 sets, daily range): BP systolic 116–133; BP diastolic 67–80; PULSE 70–107; RESP 12–18; TEMP 36.5–37.4; O2SAT 6–98
--- NOTE | 2021-04-12 06:45 | P.CONAN_ITS ---
[facility] Active Problems Active Problems: All Active Problems (Updated 03/31/21 @ 15:09 by Erlinda Salgado) Bipolar I disorder depressed with catatonic features (Acute) Aspiration pneumonitis (Acute) Catatonia (Acute) Routine medical exam (Acute) Family History Family history of problems with anesthesia: No Surgical History History of Problems with Anesthesia: No Social History Social History Household Members: Family Housing: House Patient Tobacco Use Status: Never used Tobacco Use of substances other than those prescribed or required for medical reasons: No Currently Displaying Signs/Symptoms of Drug Intoxication Withdrawal: No Any prior treatment program specific to substance use: No Are you DNR?: No Advance Directives: No Advance Directives Information Provided: No Do you have thoughts of harming others: None Do you have a plan to hurt others: No Plan Recently lost weight without trying: No How much weight loss: Unsure service: No Sexual orientation: Did not discuss Meds Allergies Allergy/AdvReac Type Severity Reaction Status Date / Time No Known Allergies Allergy Unverified 03/23/21 21:09 Active Medications: Current Medications Acetaminophen (Acetaminophen 325 Mg Tablet) 650 mg PO Q6H PRN PRN Reason: Headache/Pain Mild Scale (1-3) Last Admin: 03/30/21 19:03 Dose: 650 mg Documented by: Al Hydroxide/Mg Hydroxide (Magnesium Hydrox/Alum Hydrox 30 Ml Oral.Susp) 30 ml PO Q6H PRN PRN Reason: Heartburn/Nausea Hydroxyzine HCl (Hydroxyzine Hcl 25 Mg Tablet) 25 mg PO BEDTIME PRN PRN Reason: Anxiety Lactated Ringer's (Lr) 1,000 mls @ 50 mls/hr IVCONT .Q20H JASON Last Admin: 04/11/21 21:30 Dose: Not Given Documented by: Lactated Ringer's (Lr) 500 mls @ 20 mls/hr IVCONT .Q24H JASON Ibuprofen (Ibuprofen 600 Mg Tablet) 600 mg PO Q6H PRN PRN Reason: Fever >100.4 Last Admin: 03/31/21 20:55 Dose: 600 mg Documented by: Lorazepam (Lorazepam 1 Mg Tablet) 1 mg PO TID JASON Last Admin: 04/11/21 21:28 Dose: 1 mg Documented by: Magnesium Hydroxide (Milk Of Magnesia 30 Ml Oral.Susp) 30 ml PO DAILY PRN PRN Reason: Constipation Olanzapine (Olanzapine 5 Mg Tablet) 5 mg PO BEDTIME [facility] Last Admin: 04/11/21 21:27 Dose: 5 mg Documented by: Omeprazole (Omeprazole 40 Mg Capsule.Dr) 40 mg PO BID@0630,1630 [facility] Last Admin: 04/11/21 18:24 Dose: 40 mg Documented by: Trazodone HCl (Trazodone Hcl 50 Mg Tablet) 50 mg PO BEDTIME PRN PRN Reason: Insomnia Exam Exam Date and Time: April 12, 2021 0645 Height,Weight and Vital Signs: Height 5 ft 3.5 in Weight 63.503 kg Last Vital Signs Temp 98.2 F 04/12/21 05:53 Pulse 105 H 04/12/21 05:53 Resp 18 04/12/21 05:53 BP 116/68 04/12/21 05:53 Pulse Ox 6 L 04/12/21 05:53 Pertinent Lab Results Pertinent Lab Results: Laboratory Tests 03/24/21 03/24/21 03/27/21 15:40 15:40 12:45 WBC 5.5 RBC 5.25 Hgb 14.8 Hct 43.7 MCV 83.2 MCH 28.2 MCHC 33.9 RDW 11.9 Plt Count 181 MPV 11.1 Immature Gran % (Auto) 0.4 Neut % (Auto) 59.3 Lymph % (Auto) 30.1 [place] % (Auto) 9.4 Eos % (Auto) 0.4 Baso % (Auto) 0.4 Lymph # (Auto) 1.7 [place] # (Auto) 0.5 Eos # (Auto) 0.0 Baso # (Auto) 0.0 Abs Immat Gran (auto) 0.02 Absolute Neuts (auto) 3.3 Absolute Nucleated RBC 0.000 Nucleated RBC % (auto) 0.0 D-Dimer Sodium 139 Potassium 4.1 Chloride 105 Carbon Dioxide 23 Anion Gap 15 BUN 10 Creatinine 0.85 Estim Creat Clear Calc TNP Estimated GFR > 60 Random Glucose 86 Lactic Acid Calcium 9.5 Total Bilirubin 0.5 AST 19 ALT 28 Alkaline Phosphatase 115 Total Creatine Kinase 71 Total Protein 7.2 Albumin 4.3 COVID-19 ([facility]) Negative COVID-19 Clin Com See Note 03/29/21 03/29/21 03/29/21 13:18 13:18 13:18 WBC 11.1 H RBC 5.12 Hgb 14.4 Hct 42.9 MCV 83.8 MCH 28.1 MCHC 33.6 RDW 11.9 Plt Count 169 MPV 10.6 Immature Gran % (Auto) 0.3 Neut % (Auto) 77.9 H Lymph % (Auto) 11.7 L [place] % (Auto) 9.7 Eos % (Auto) 0.1 Baso % (Auto) 0.3 Lymph # (Auto) 1.3 [place] # (Auto) 1.1 Eos # (Auto) 0.0 Baso # (Auto) 0.0 Abs Immat Gran (auto) 0.03 Absolute Neuts (auto) 8.63 H Absolute Nucleated RBC 0.000 Nucleated RBC % (auto) 0.0 D-Dimer 386 Sodium 143 Potassium 3.7 Chloride 109 H Carbon Dioxide 25 Anion Gap 13 BUN 8 L Creatinine 1.00 Estim Creat Clear Calc 88.5 Estimated GFR > 60 Random Glucose 95 Lactic Acid Calcium 9.1 Total Bilirubin 0.3 AST 13 ALT 16 Alkaline Phosphatase 94 Total Creatine Kinase 312 H D Total Protein 6.9 Albumin 4.0 COVID-19 ([facility]) COVID-19 Clin Com 03/29/21 03/30/21 03/30/21 15:13 08:17 08:17 WBC 8.7 RBC 4.70 Hgb 13.1 L Hct 39.3 L MCV 83.6 MCH 27.9 MCHC 33.3 RDW 11.9 Plt Count 177 MPV 11.3 Immature Gran % (Auto) 0.3 Neut % (Auto) 64.1 Lymph % (Auto) 22.3 [place] % (Auto) 12.4 H Eos % (Auto) 0.7 Baso % (Auto) 0.2 Lymph # (Auto) 1.9 [place] # (Auto) 1.1 Eos # (Auto) 0.1 Baso # (Auto) 0.0 Abs Immat Gran (auto) 0.03 Absolute Neuts (auto) 5.57 Absolute Nucleated RBC 0.000 Nucleated RBC % (auto) 0.0 D-Dimer Sodium Potassium Chloride Carbon Dioxide Anion Gap BUN Creatinine Estim Creat Clear Calc Estimated GFR Random Glucose Lactic Acid 1.8 Calcium Total Bilirubin AST ALT Alkaline Phosphatase Total Creatine Kinase 208 H Total Protein Albumin COVID-19 ([facility]) COVID-19 Clin Com 04/05/21 04/05/21 04/11/21 20:57 20:57 15:44 WBC 17.7 H 8.1 RBC 4.61 5.41 Hgb 12.9 L 14.9 Hct 38.2 L 46.1 D MCV 82.9 85.2 MCH 28.0 27.5 MCHC 33.8 32.3 RDW 11.9 12.7 Plt Count 251 D 321 D MPV 10.3 10.3 Immature Gran % (Auto) 0.6 H 0.5 H Neut % (Auto) 77.4 H 55.0 Lymph % (Auto) 13.4 L 31.9 [place] % (Auto) 8.1 11.2 H Eos % (Auto) 0.2 0.9 Baso % (Auto) 0.3 0.5 Lymph # (Auto) 2.4 2.6 [place] # (Auto) 1.4 H 0.9 Eos # (Auto) 0.0 0.1 Baso # (Auto) 0.1 0.0 Abs Immat Gran (auto) 0.10 H 0.04 H Absolute Neuts (auto) 13.7 H 4.4 Absolute Nucleated RBC 0.000 0.000 Nucleated RBC % (auto) 0.0 0.0 D-Dimer Sodium 139 Potassium 4.3 Chloride 105 Carbon Dioxide 28 Anion Gap 10 L BUN 17 H D Creatinine 1.15 Estim Creat Clear Calc 76.9 Estimated GFR > 60 Random Glucose 106 Lactic Acid Calcium 9.0 Total Bilirubin 0.4 AST 34 D ALT 84 H Alkaline Phosphatase 90 Total Creatine Kinase Total Protein 6.5 Albumin 3.9 COVID-19 ([facility]) COVID-19 Clin Com 04/11/21 15:44 WBC RBC Hgb Hct MCV MCH MCHC RDW Plt Count MPV Immature Gran % (Auto) Neut % (Auto) Lymph % (Auto) [place] % (Auto) Eos % (Auto) Baso % (Auto) Lymph # (Auto) [place] # (Auto) Eos # (Auto) Baso # (Auto) Abs Immat Gran (auto) Absolute Neuts (auto) Absolute Nucleated RBC Nucleated RBC % (auto) D-Dimer Sodium 141 Potassium 4.2 Chloride 104 Carbon Dioxide 29 Anion Gap 12 BUN 10 Creatinine 1.10 Estim Creat Clear Calc 80.4 Estimated GFR > 60 Random Glucose 87 Lactic Acid Calcium 9.7 D Total Bilirubin 0.5 AST 19 D ALT 48 H Alkaline Phosphatase 99 Total Creatine Kinase Total Protein 7.8 Albumin 4.5 COVID-19 ([facility]) COVID-19 Clin Com Airway Mallampati Class: II TM Dist: >3cm Neck ROM: Full Heart: rrr Lungs: cta Assessment and Plan Assessment Anesthesia Assessment: Anesthesia Plan Discussed and Chart Reviewed Final Anesthetic Review Family History of Problems with Anesthesia: No History of Problems with Anesthesia: No NPO: Yes ASA Class: III Final Preanesthetic Review: No Changes in Pt Med Stat, Meds/Allgs Chart Reviewed and Consent Obtained/Reviewed Patient Risk: Intermediate Procedure Risk: Intermediate Anesthetic Plan Anesthetic Plan: GA Disposition: Standard PACU
--- NOTE | 2021-04-12 07:09 | MHC.SHP ---
Pre-Procedural Eval Section A Date of Service: 04/12/21 The patient is an INPATIENT: Yes Changes since office visit: Yes Changes in Medication and Yes Patient answered all questions; No Cold of Flu in the past 2 weeks and No New Medical Problems The History & Physical has been completed within 30 days and I have reviewed it.: Yes Section B Chief Complaint: Depression Allergies: Allergies Allergy/AdvReac Type Severity Reaction Status Date / Time No Known Allergies Allergy Unverified 03/23/21 21:09 Plan I have reviewed the history and physical and performed a pertinent physical examination on my patient. No changes have occurred unless specified.
--- NOTE | 2021-04-12 07:33 | HO.ECTPROC ---
ECT Procedure Note Diagnosis/Treatment Date of Service: 04/12/21 Diagnosis: Catatonia Previous ECT Date: 04/12/21 Current Treatment Number: 6 Treatment: Series Interval Clinical Notes: pt verbal but flat guarded improved ECT Settings Device: THYMATRON DGx Electrode Placement: Bitemporal Program/Pulse Width: 0.50 Seizure Duration By EEG (in seconds): 46 Medications Administration General Anesthetic: Etomidate (18) Muscle Relaxant: Succinylcholine (60) Ancillary Medications Analgesics: Torodol - Pre ECT Anti-emetics: Zofran - Pre ECT Airway Management Airway Management: Bag Mask Ventilation Treatment Recommendations No Changes Recommended: No change Notes: pt done sitting up robinal 0.4 mg pretx no post sedatives to be given Pt Tolerated Procedure w/o Issue: Yes
[2021-04-12] MEDS: Omeprazole 40 MG CAPSULE.DR PO ×2 (08:46→16:13)
[2021-04-12] MEDS: LORazepam 1 MG TABLET PO ×3 (08:46→20:12)
[2021-04-12] MEDS: OLANZapine 5 MG TABLET PO (20:12)
--- NOTE | 2021-04-12 22:33 | P.PNPSI_ITS ---
Subjective Subjective Date of Service: 04/12/21 Reason For Visit: Depression Subjective Notes: Conditional Voluntary Interim History: Pt blunted internally preoccupied concrete obsessional tolerated ect Medication Compliance: Yes Review of Systems no further pulmonary issues Medical Review of Systems: unchanged Mental Status Exam Mental Status Exam Narrative: Appearance: casually groomed, fair hygiene in NAD Behavior:smiles at times, psychomotor:less retardation Speech: clear, increasingly more spontaneous, soft tone, less delayed response. Thought process:appropriate response to question with single words, no loose associations latter-day preoccupation Thought content: no overt psychosis, feeling better, trying to understands what has happened to him for the past several months. Mood: okay Affect: brightens at times, does have constricted affect, mask like affect SI:denies HI:denies VH/AH:none Delusions:none Insight/judgment:improving Memory/cog:alert, oriented to place, month, date, year. Diagnostics Vital Signs (24Hr): Vital Signs - 24 hr 04/12/21 05:45 04/12/21 05:53 04/12/21 07:34 Temperature 98.2 F 98.2 F 99.3 F Pulse Rate 105 H 105 H 101 H Respiratory Rate 18 16 Blood Pressure 116/68 116/68 126/73 Pulse Oximetry 96 6 L 98 04/12/21 07:39 04/12/21 07:44 04/12/21 07:49 Temperature Pulse Rate 102 H 107 H 103 H Respiratory Rate 12 13 13 Blood Pressure 133/67 129/75 131/72 Pulse Oximetry 94 94 95 04/12/21 08:03 04/12/21 08:18 04/12/21 08:55 Temperature 99.1 F 99.1 F 97.9 F Pulse Rate 97 92 93 Respiratory Rate 16 16 Blood Pressure 133/73 121/75 131/80 Pulse Oximetry 97 96 97 04/12/21 18:00 Temperature 97.7 F Pulse Rate 70 Respiratory Rate 16 Blood Pressure 127/77 Pulse Oximetry 96 Body Mass Index 24.4 Labs Results: 04/11/21 15:44 04/11/21 15:44 Labs: Laboratory Results - last 48 hr 04/11/21 04/11/21 15:44 15:44 WBC 8.1 RBC 5.41 Hgb 14.9 Hct 46.1 D MCV 85.2 MCH 27.5 MCHC 32.3 RDW 12.7 Plt Count 321 D MPV 10.3 Immature Gran % (Auto) 0.5 H Neut % (Auto) 55.0 Lymph % (Auto) 31.9 [place] % (Auto) 11.2 H Eos % (Auto) 0.9 Baso % (Auto) 0.5 Lymph # (Auto) 2.6 [place] # (Auto) 0.9 Eos # (Auto) 0.1 Baso # (Auto) 0.0 Abs Immat Gran (auto) 0.04 H Absolute Neuts (auto) 4.4 Absolute Nucleated RBC 0.000 Nucleated RBC % (auto) 0.0 Sodium 141 Potassium 4.2 Chloride 104 Carbon Dioxide 29 Anion Gap 12 BUN 10 Creatinine 1.10 Estim Creat Clear Calc 80.4 Estimated GFR > 60 Random Glucose 87 Calcium 9.7 D Total Bilirubin 0.5 AST 19 D ALT 48 H Alkaline Phosphatase 99 Total Protein 7.8 Albumin 4.5 Imaging Radiology Impressions: ITS Impressions Chest X-Ray 03/29/21 14:21 IMPRESSION: No acute disease. Chest CT 03/29/21 15:36 IMPRESSION: 1. Coarsening bronchovascular markings right lower lobe with 1 bronchiolar mucous plugging and some fine tree-in-bud acinar opacities suggesting sequela from aspiration. Subsegmental atelectasis left posterior base. Trace right effusion. No adenopathy. 2. No lobar or segmental airspace consolidation. 3. Solitary nodule right middle lobe under 4 mm. No additional follow-up required in low risk patient. Medications Medications Current Medications Acetaminophen (Acetaminophen 325 Mg Tablet) 650 mg PO Q6H PRN PRN Reason: Headache/Pain Mild Scale (1-3) Last Admin: 03/30/21 19:03 Dose: 650 mg Documented by: Al Hydroxide/Mg Hydroxide (Magnesium Hydrox/Alum Hydrox 30 Ml Oral.Susp) 30 ml PO Q6H PRN PRN Reason: Heartburn/Nausea Hydroxyzine HCl (Hydroxyzine Hcl 25 Mg Tablet) 25 mg PO BEDTIME PRN PRN Reason: Anxiety Ibuprofen (Ibuprofen 600 Mg Tablet) 600 mg PO Q6H PRN PRN Reason: Fever >100.4 Last Admin: 03/31/21 20:55 Dose: 600 mg Documented by: Lorazepam (Lorazepam 1 Mg Tablet) 1 mg PO TID JASON Last Admin: 11/17/21 20:12 Dose: 1 mg Documented by: Magnesium Hydroxide (Milk Of Magnesia 30 Ml Oral.Susp) 30 ml PO DAILY PRN PRN Reason: Constipation Olanzapine (Olanzapine 5 Mg Tablet) 5 mg PO BEDTIME [facility] Last Admin: 04/12/21 20:12 Dose: 5 mg Documented by: Omeprazole (Omeprazole 40 Mg Capsule.Dr) 40 mg PO BID@0630,1630 [facility] Last Admin: 04/12/21 16:13 Dose: 40 mg Documented by: Trazodone HCl (Trazodone Hcl 50 Mg Tablet) 50 mg PO BEDTIME PRN PRN Reason: Insomnia Allergies Allergies Allergy/AdvReac Type Severity Reaction Status Date / Time No Known Allergies Allergy Unverified 03/23/21 21:09 Assessment & Plan Assessment & Plan (1) Bipolar I disorder depressed with catatonic features: Status: Acute Code(s): F31.30 - Bipolar disorder, current episode depressed, mild or moderate severity, unspecified; F06.1 - Catatonic disorder due to known physiological condition (2) Aspiration pneumonitis: Status: Acute Code(s): J69.0 - Pneumonitis due to inhalation of food and vomit Assessment and Plan: On aumentin for 7 days. Assessment and Plan: Mr. Carcamo is a 30 year-old male admitted on Section 8 from [facility] for tx of catatonia. Pt's has presented with symptoms of latter-day preoccupation followed by catatonia since 05/2020. 03/30- speech more spontaneous, fluent, less monosyllabic, less psychomotor retardation, no acute distress PLAN 1. Section 8, 15 minutes checks for safety. cont ect number 6 completed flat odd affect dysphoric guarded start sertraline 25 mg inc olanzapine 7.5 mg . I spent minutes with the patient and/or on the patient floor today, greater than?50% of which was spent counseling/coordinating care. Reason for contiued inpatient stay Substantial Risk for: inability to function and rapid decompensation
[2021-04-13 06:00] VITALS: BP 130/84; PULSE 100; RESP 18; TEMP 37.1; O2SAT 96
[2021-04-13] MEDS: LORazepam 1 MG TABLET PO ×3 (08:12→21:09)
[2021-04-13] MEDS: Omeprazole 40 MG CAPSULE.DR PO ×2 (08:12→16:59)
--- NOTE | 2021-04-13 13:03 | HO.PSYCHPN ---
Subjective Subjective Date of Service: 04/13/21 Reason For Visit: Depression Subjective Notes: Section 8 Medical Problems Affecting Mental Status: No Interim History: Patient continues to have an odd affect with slowed mentation some degree of thought blocking at times at other time shows a full range of affect can smile and engage for periods at other times lying in bed and some degree of psychomotor retardation patient does state he is feeling better Medication Compliance: Yes Review of Systems No recurrence of aspiration or pneumonia Mental Status Exam Mental Status Exam Narrative: Appearance: casually groomed, fair hygiene in NAD Behavior:smiles at times, psychomotor:less retardation Speech: clear, increasingly more spontaneous, soft tone, less delayed response. Thought process:appropriate response to question with single words, no loose associations some hoahaoism preoccupation Has difficulty answering questions gets thought blocking Thought content: no overt psychosis, feeling better, trying to understands what has happened to him for the past several months. Mood: okay Affect: brightens at times, does have constricted affect, mask like affect SI:denies HI:denies VH/AH:none Delusions:none Insight/judgment:improving Memory/cog:alert, oriented to place, month, date, year. Diagnostics Vital Signs (24Hr): Vital Signs - 24 hr 04/12/21 18:00 04/13/21 06:00 Temperature 97.7 F 98.8 F Pulse Rate 70 100 Respiratory Rate 16 18 Blood Pressure 127/77 130/84 Pulse Oximetry 96 96 Body Mass Index 24.4 Labs Results: 04/11/21 15:44 04/11/21 15:44 Labs: Laboratory Results - last 48 hr 04/11/21 04/11/21 15:44 15:44 WBC 8.1 RBC 5.41 Hgb 14.9 Hct 46.1 D MCV 85.2 MCH 27.5 MCHC 32.3 RDW 12.7 Plt Count 321 D MPV 10.3 Immature Gran % (Auto) 0.5 H Neut % (Auto) 55.0 Lymph % (Auto) 31.9 [place] % (Auto) 11.2 H Eos % (Auto) 0.9 Baso % (Auto) 0.5 Lymph # (Auto) 2.6 [place] # (Auto) 0.9 Eos # (Auto) 0.1 Baso # (Auto) 0.0 Abs Immat Gran (auto) 0.04 H Absolute Neuts (auto) 4.4 Absolute Nucleated RBC 0.000 Nucleated RBC % (auto) 0.0 Sodium 141 Potassium 4.2 Chloride 104 Carbon Dioxide 29 Anion Gap 12 BUN 10 Creatinine 1.10 Estim Creat Clear Calc 80.4 Estimated GFR > 60 Random Glucose 87 Calcium 9.7 D Total Bilirubin 0.5 AST 19 D ALT 48 H Alkaline Phosphatase 99 Total Protein 7.8 Albumin 4.5 Imaging Radiology Impressions: ITS Impressions Chest X-Ray 03/29/21 14:21 IMPRESSION: No acute disease. Chest CT 03/29/21 15:36 IMPRESSION: 1. Coarsening bronchovascular markings right lower lobe with 1 bronchiolar mucous plugging and some fine tree-in-bud acinar opacities suggesting sequela from aspiration. Subsegmental atelectasis left posterior base. Trace right effusion. No adenopathy. 2. No lobar or segmental airspace consolidation. 3. Solitary nodule right middle lobe under 4 mm. No additional follow-up required in low risk patient. Medications Medications Current Medications Acetaminophen (Acetaminophen 325 Mg Tablet) 650 mg PO Q6H PRN PRN Reason: Headache/Pain Mild Scale (1-3) Last Admin: 03/30/21 19:03 Dose: 650 mg Documented by: Al Hydroxide/Mg Hydroxide (Magnesium Hydrox/Alum Hydrox 30 Ml Oral.Susp) 30 ml PO Q6H PRN PRN Reason: Heartburn/Nausea Hydroxyzine HCl (Hydroxyzine Hcl 25 Mg Tablet) 25 mg PO BEDTIME PRN PRN Reason: Anxiety Ibuprofen (Ibuprofen 600 Mg Tablet) 600 mg PO Q6H PRN PRN Reason: Fever >100.4 Last Admin: 03/31/21 20:55 Dose: 600 mg Documented by: Lorazepam (Lorazepam 1 Mg Tablet) 1 mg PO TID [facility] Last Admin: 04/13/21 08:12 Dose: 1 mg Documented by: Magnesium Hydroxide (Milk Of Magnesia 30 Ml Oral.Susp) 30 ml PO DAILY PRN PRN Reason: Constipation Olanzapine (Olanzapine 5 Mg Tablet) 5 mg PO BEDTIME [facility] Last Admin: 04/12/21 20:12 Dose: 5 mg Documented by: Omeprazole (Omeprazole 40 Mg Capsule.Dr) 40 mg PO BID@0630,1630 [facility] Last Admin: 04/13/21 08:12 Dose: 40 mg Documented by: Trazodone HCl (Trazodone Hcl 50 Mg Tablet) 50 mg PO BEDTIME PRN PRN Reason: Insomnia Allergies Allergies Allergy/AdvReac Type Severity Reaction Status Date / Time No Known Allergies Allergy Unverified 03/23/21 21:09 Assessment & Plan Assessment & Plan (1) Bipolar I disorder depressed with catatonic features: Status: Acute Code(s): F31.30 - Bipolar disorder, current episode depressed, mild or moderate severity, unspecified; F06.1 - Catatonic disorder due to known physiological condition (2) Aspiration pneumonitis: Status: Acute Code(s): J69.0 - Pneumonitis due to inhalation of food and vomit Assessment and Plan: On aumentin for 7 days. Assessment and Plan: Mr. Carcamo is a 30 year-old male admitted on Section 8 from [facility] for tx of catatonia. Pt's has presented with symptoms of hoahaoism preoccupation followed by catatonia since 05/2020. PLAN 1. Section 8, 15 minutes checks for safety. cont ect number 6 completed flat odd affect dysphoric guarded start sertraline 25 mg continue ECT then re-evaluate I spent minutes with the patient and/or on the patient floor today, greater than?50% of which was spent counseling/coordinating care. Reason for contiued inpatient stay Substantial Risk for: inability to function and rapid decompensation
[2021-04-13 18:28] VITALS: BP 138/85; PULSE 85; RESP 16; TEMP 36.6; O2SAT 97
[2021-04-13] MEDS: OLANZapine 5 MG TABLET PO (21:09)
[2021-04-14] VITALS (10 sets, daily range): BP systolic 115–136; BP diastolic 64–98; PULSE 76–112; RESP 16–18; TEMP 36.4–37.1; O2SAT 96–100; BMI 24.4
[2021-04-14] MEDS: Omeprazole 40 MG CAPSULE.DR PO ×2 (07:13→16:59)
--- NOTE | 2021-04-14 08:51 | MHC.SHP ---
Pre-Procedural Eval Section A Date of Service: 04/14/21 The patient is an INPATIENT: Yes Changes since office visit: Yes Patient answered all questions; No Cold of Flu in the past 2 weeks, No New Medical Problems and No Changes in Medication The History & Physical has been completed within 30 days and I have reviewed it.: Yes Section B Chief Complaint: Depression Allergies: Allergies Allergy/AdvReac Type Severity Reaction Status Date / Time No Known Allergies Allergy Unverified 03/23/21 21:09 Plan I have reviewed the history and physical and performed a pertinent physical examination on my patient. No changes have occurred unless specified.
--- NOTE | 2021-04-14 08:53 | HO.ECTPROC ---
ECT Procedure Note Diagnosis/Treatment Date of Service: 04/14/21 Diagnosis: Catatonia Previous ECT Date: 04/12/21 Current Treatment Number: 7 Treatment: Series Interval Clinical Notes: Patient shows improvement but continues to have thought blocking slowed mentation ECT Settings Device: THYMATRON DGx Electrode Placement: Bitemporal Program/Pulse Width: 0.50 Energy Percent: 80 Seizure Duration By EEG (in seconds): 36 Medications Administration General Anesthetic: Etomidate Ancillary Medications Analgesics: Torodol - Pre ECT Anti-emetics: Zofran - Pre ECT Cardiovascular Medications: Glycopyrrolate Miscillaneous Medications: Flumazenil Airway Management Airway Management: Bag Mask Ventilation Treatment Recommendations No Changes Recommended: No change
[2021-04-14] MEDS: Sertraline HCL 25 MG TABLET PO (10:10)
[2021-04-14] MEDS: LORazepam 1 MG TABLET PO ×3 (10:13→20:38)
[2021-04-14] MEDS: OLANZapine 5 MG TABLET PO (20:38)
--- NOTE | 2021-04-14 22:54 | HO.PSYCHPN ---
Subjective Subjective Date of Service: 04/14/21 Reason For Visit: catatonia Subjective Notes: Section 8 Medication Compliance: Yes Mental Status Exam Mental Status Exam Narrative: Patient casually dressed anxious in appearance somewhat flat slowed mentation anxious when answering questions at other times can smile on have a ames affect guarded superficial and interaction saying he feels fine denies hallucinations denies hearing a voice of God or the devil denies SI or HI insight Diagnostics Vital Signs (24Hr): Vital Signs - 24 hr 04/14/21 05:58 04/14/21 08:29 04/14/21 09:13 Temperature 97.6 F 98.7 F 98.6 F Pulse Rate 92 76 101 H Respiratory Rate 16 16 18 Blood Pressure 120/83 132/80 136/64 Pulse Oximetry 98 100 96 04/14/21 09:18 04/14/21 09:23 04/14/21 09:28 Temperature Pulse Rate 109 H 107 H 104 H Respiratory Rate 18 18 17 Blood Pressure 115/98 H 131/85 122/87 Pulse Oximetry 96 96 97 04/14/21 09:43 04/14/21 09:58 04/14/21 10:08 Temperature 98.0 F 98.4 F Pulse Rate 101 H 95 89 Respiratory Rate 16 17 16 Blood Pressure 130/87 131/84 122/84 Pulse Oximetry 96 97 98 04/14/21 18:37 Temperature 98.7 F Pulse Rate 112 H Respiratory Rate 16 Blood Pressure 125/76 Pulse Oximetry 97 Body Mass Index 24.4 Labs Results: 04/11/21 15:44 04/11/21 15:44 Imaging Radiology Impressions: ITS Impressions Chest X-Ray 03/29/21 14:21 IMPRESSION: No acute disease. Chest CT 03/29/21 15:36 IMPRESSION: 1. Coarsening bronchovascular markings right lower lobe with 1 bronchiolar mucous plugging and some fine tree-in-bud acinar opacities suggesting sequela from aspiration. Subsegmental atelectasis left posterior base. Trace right effusion. No adenopathy. 2. No lobar or segmental airspace consolidation. 3. Solitary nodule right middle lobe under 4 mm. No additional follow-up required in low risk patient. Brain MRI 04/14/21 20:18 IMPRESSION: 1. There are no acute bleeds or infarcts. No masses are demonstrated. Medications Medications Current Medications Acetaminophen (Acetaminophen 325 Mg Tablet) 650 mg PO Q6H PRN PRN Reason: Headache/Pain Mild Scale (1-3) Last Admin: 03/30/21 19:03 Dose: 650 mg Documented by: Al Hydroxide/Mg Hydroxide (Magnesium Hydrox/Alum Hydrox 30 Ml Oral.Susp) 30 ml PO Q6H PRN PRN Reason: Heartburn/Nausea Hydroxyzine HCl (Hydroxyzine Hcl 25 Mg Tablet) 25 mg PO BEDTIME PRN PRN Reason: Anxiety Ibuprofen (Ibuprofen 600 Mg Tablet) 600 mg PO Q6H PRN PRN Reason: Fever >100.4 Last Admin: 03/31/21 20:55 Dose: 600 mg Documented by: Lorazepam (Lorazepam 1 Mg Tablet) 1 mg PO TID [facility] Last Admin: 04/14/21 20:38 Dose: 1 mg Documented by: Magnesium Hydroxide (Milk Of Magnesia 30 Ml Oral.Susp) 30 ml PO DAILY PRN PRN Reason: Constipation Olanzapine (Olanzapine 5 Mg Tablet) 5 mg PO BEDTIME [facility] Last Admin: 04/14/21 20:38 Dose: 5 mg Documented by: Omeprazole (Omeprazole 40 Mg Capsule.Dr) 40 mg PO BID@0630,1630 [facility] Last Admin: 04/14/21 16:59 Dose: 40 mg Documented by: Sertraline HCl (Sertraline Hcl 25 Mg Tablet) 25 mg PO DAILY [facility] Last Admin: 04/14/21 10:10 Dose: 25 mg Documented by: Trazodone HCl (Trazodone Hcl 50 Mg Tablet) 50 mg PO BEDTIME PRN PRN Reason: Insomnia Allergies Allergies Allergy/AdvReac Type Severity Reaction Status Date / Time No Known Allergies Allergy Unverified 03/23/21 21:09 Assessment & Plan Assessment & Plan (1) Bipolar I disorder depressed with catatonic features: Status: Acute Code(s): F31.30 - Bipolar disorder, current episode depressed, mild or moderate severity, unspecified; F06.1 - Catatonic disorder due to known physiological condition (2) Aspiration pneumonitis: Status: Acute Code(s): J69.0 - Pneumonitis due to inhalation of food and vomit Assessment and Plan: On aumentin for 7 days. Assessment and Plan: Mr. Carcamo is a 30 year-old male admitted on Section [address] [facility] for tx of catatonia. Pt's has presented with symptoms of worship preoccupation followed by catatonia since 05/2020. Case extensively reviewed with patient's father who notes significant improvement with ECT and feels that the patient is normally socially anxious and would do better at home. Discussed need for outpatient ECT and transitioning 1 or 2 inpatient treatments. Patient has not regained normal mentation still with thought blocking patient's father denies that patient had past abnormal development mentation or neurological difficulties prior to May PLAN 1. Section 8, 15 minutes checks for safety. Continue ECT monitor mentation I spent minutes with the patient and/or on the patient floor today, greater than?50% of which was spent counseling/coordinating care. Reason for contiued inpatient stay Substantial Risk for: inability to function and rapid decompensation
[2021-04-15 06:00] VITALS: BP 115/57; PULSE 87; RESP 16; TEMP 36.9; O2SAT 96
[2021-04-15] MEDS: Omeprazole 40 MG CAPSULE.DR PO ×2 (08:25→16:35)
[2021-04-15] MEDS: LORazepam 1 MG TABLET PO ×3 (08:25→19:59)
[2021-04-15] MEDS: Sertraline HCL 25 MG TABLET PO (08:25)
--- NOTE | 2021-04-15 11:24 | P.PNPSI_ITS ---
Subjective Subjective Date of Service: 04/15/21 Reason For Visit: catatonia Interim History: Patient lying in bed on approach. Patient guarded with service writer advisor and reticent. He says I am all right and shakes his head no when asked if he has any problems. Does not answer service writer advisor on any of the questions but just stares at service writer advisor. However he does say thank you as service writer advisor offers to be rae ilable if he does want to talk or has any questions. Nursing staff report to service writer advisor that today he denies AVH; denies SI/HI; denies depression or anxiety and says he's doing better He took Zoloft today but questions it and told nurse that he doesn't need antidepressant Mental Status Exam Mental Status Exam Narrative: Patient lying in bed under covers; behavior is guarded but calm Denies SI/HI Denies AVH; denies depression and says mood is alright anxious and constricted affect; speech latency versus reticence and answering very few questions Insight/judgment impaired Diagnostics Vital Signs (24Hr): Vital Signs - 24 hr 04/14/21 18:37 04/15/21 06:00 Temperature 98.7 F 98.5 F Pulse Rate 112 H 87 Respiratory Rate 16 16 Blood Pressure 125/76 115/57 L Pulse Oximetry 97 96 Body Mass Index 24.4 Labs Results: 04/11/21 15:44 04/11/21 15:44 Imaging Radiology Impressions: ITS Impressions Chest X-Ray 03/29/21 14:21 IMPRESSION: No acute disease. Chest CT 03/29/21 15:36 IMPRESSION: 1. Coarsening bronchovascular markings right lower lobe with 1 bronchiolar mucous plugging and some fine tree-in-bud acinar opacities suggesting sequela from aspiration. Subsegmental atelectasis left posterior base. Trace right effusion. No adenopathy. 2. No lobar or segmental airspace consolidation. 3. Solitary nodule right middle lobe under 4 mm. No additional follow-up required in low risk patient. Brain MRI 04/14/21 20:18 IMPRESSION: 1. There are no acute bleeds or infarcts. No masses are demonstrated. Medications Medications Current Medications Acetaminophen (Acetaminophen 325 Mg Tablet) 650 mg PO Q6H PRN PRN Reason: Headache/Pain Mild Scale (1-3) Last Admin: 03/30/21 19:03 Dose: 650 mg Documented by: Al Hydroxide/Mg Hydroxide (Magnesium Hydrox/Alum Hydrox 30 Ml Oral.Susp) 30 ml PO Q6H PRN PRN Reason: Heartburn/Nausea Hydroxyzine HCl (Hydroxyzine Hcl 25 Mg Tablet) 25 mg PO BEDTIME PRN PRN Reason: Anxiety Ibuprofen (Ibuprofen 600 Mg Tablet) 600 mg PO Q6H PRN PRN Reason: Fever >100.4 Last Admin: 03/31/21 20:55 Dose: 600 mg Documented by: Lorazepam (Lorazepam 1 Mg Tablet) 1 mg PO TID [facility] Last Admin: 04/15/21 08:25 Dose: 1 mg Documented by: Magnesium Hydroxide (Milk Of Magnesia 30 Ml Oral.Susp) 30 ml PO DAILY PRN PRN Reason: Constipation Olanzapine (Olanzapine 5 Mg Tablet) 5 mg PO BEDTIME [facility] Last Admin: 04/14/21 20:38 Dose: 5 mg Documented by: Omeprazole (Omeprazole 40 Mg Capsule.Dr) 40 mg PO BID@0630,1630 [facility] Last Admin: 04/15/21 08:25 Dose: 40 mg Documented by: Sertraline HCl (Sertraline Hcl 25 Mg Tablet) 25 mg PO DAILY [facility] Last Admin: 04/15/21 08:25 Dose: 25 mg Documented by: Trazodone HCl (Trazodone Hcl 50 Mg Tablet) 50 mg PO BEDTIME PRN PRN Reason: Insomnia Allergies Allergies Allergy/AdvReac Type Severity Reaction Status Date / Time No Known Allergies Allergy Unverified 03/23/21 21:09 Assessment & Plan Assessment & Plan (1) Bipolar I disorder depressed with catatonic features: Status: Acute Code(s): F31.30 - Bipolar disorder, current episode depressed, mild or moderate severity, unspecified; F06.1 - Catatonic disorder due to known physiological condition (2) Aspiration pneumonitis: Status: Acute Code(s): J69.0 - Pneumonitis due to inhalation of food and vomit Assessment and Plan: On aumentin for 7 days. Assessment and Plan: Electronic Organ Mechanic covering Patient seen 04/15 No changes to treatment plan Mr. Carcamo is a 30 year-old male admitted on Section 8 from [facility] for tx of catatonia. Pt's has presented with symptoms of cheondoism preoccupation followed by catatonia since 05/2020. Case extensively reviewed with patient's father who notes significant improvement with ECT and feels that the patient is normally socially anxious and would do better at home. Discussed need for outpatient ECT and transitioning 1 or 2 inpatient treatments. Patient has not regained normal mentation still with thought blocking patient's father denies that patient had past abnormal developm ent mentation or neurological difficulties prior to May PLAN 1. Section 8, 15 minutes checks for safety. Continue ECT monitor mentation I spent minutes with the patient and/or on the patient floor today, greater than?50% of which was spent counseling/coordinating care. Reason for contiued inpatient stay Substantial Risk for: inability to function
[2021-04-15 18:00] VITALS: BP 128/84; PULSE 95; RESP 16; TEMP 36.3; O2SAT 98
[2021-04-15] MEDS: OLANZapine 5 MG TABLET PO (19:59)
[2021-04-16 06:00] VITALS: BP 111/62; PULSE 87; RESP 16; TEMP 36.8; O2SAT 96
[2021-04-16] MEDS: Omeprazole 40 MG CAPSULE.DR PO ×2 (09:12→16:41)
[2021-04-16] MEDS: LORazepam 1 MG TABLET PO ×3 (09:12→20:36)
[2021-04-16] MEDS: Sertraline HCL 25 MG TABLET PO (09:12)
[2021-04-16 17:29] VITALS: BP 127/78; PULSE 90; TEMP 37.2; O2SAT 99
--- NOTE | 2021-04-16 20:05 | P.PNPSI_ITS ---
Subjective Subjective Date of Service: 04/16/21 Reason For Visit: catatonia Interim History: pt lying in bed; looks at machine sign writer but does not answer writers questions at first. eventually he says he's good and denies SI/HI or AVH. Diagnostic Radiologist asked if he left the room to which he said to shower. Diagnostic Radiologist asked if patient needed anything to which he said Not at this moment in time, no. Mental Status Exam Mental Status Exam Narrative: atient lying in bed under covers; behavior is guarded but calm Denies SI/HI Denies AVH;? denies depression and says mood is good ? anxious and constricted affect;? speech latency versus reticence and answering very few questions Insight/judgment impaired Diagnostics Vital Signs (24Hr): Vital Signs - 24 hr 04/16/21 06:00 04/16/21 17:29 Temperature 98.2 F 99.0 F Pulse Rate 87 90 Respiratory Rate 16 Blood Pressure 111/62 127/78 Pulse Oximetry 96 99 Body Mass Index 24.4 Labs Results: 04/11/21 15:44 04/11/21 15:44 Imaging Radiology Impressions: ITS Impressions Chest X-Ray 03/29/21 14:21 IMPRESSION: No acute disease. Chest CT 03/29/21 15:36 IMPRESSION: 1. Coarsening bronchovascular markings right lower lobe with 1 bronchiolar mucous plugging and some fine tree-in-bud acinar opacities suggesting sequela from aspiration. Subsegmental atelectasis left posterior base. Trace right effusion. No adenopathy. 2. No lobar or segmental airspace consolidation. 3. Solitary nodule right middle lobe under 4 mm. No additional follow-up required in low risk patient. Brain MRI 04/14/21 20:18 IMPRESSION: 1. There are no acute bleeds or infarcts. No masses are demonstrated. Medications Medications Current Medications Acetaminophen (Acetaminophen 325 Mg Tablet) 650 mg PO Q6H PRN PRN Reason: Headache/Pain Mild Scale (1-3) Last Admin: 03/30/21 19:03 Dose: 650 mg Documented by: Al Hydroxide/Mg Hydroxide (Magnesium Hydrox/Alum Hydrox 30 Ml Oral.Susp) 30 ml PO Q6H PRN PRN Reason: Heartburn/Nausea Hydroxyzine HCl (Hydroxyzine Hcl 25 Mg Tablet) 25 mg PO BEDTIME PRN PRN Reason: Anxiety Ibuprofen (Ibuprofen 600 Mg Tablet) 600 mg PO Q6H PRN PRN Reason: Fever >100.4 Last Admin: 03/31/21 20:55 Dose: 600 mg Documented by: Lorazepam (Lorazepam 1 Mg Tablet) 1 mg PO TID [facility] Last Admin: 04/16/21 14:42 Dose: 1 mg Documented by: Magnesium Hydroxide (Milk Of Magnesia 30 Ml Oral.Susp) 30 ml PO DAILY PRN PRN Reason: Constipation Olanzapine (Olanzapine 5 Mg Tablet) 5 mg PO BEDTIME [facility] Last Admin: 04/15/21 19:59 Dose: 5 mg Documented by: Omeprazole (Omeprazole 40 Mg Capsule.Dr) 40 mg PO BID@0630,1630 [facility] Last Admin: 04/16/21 16:41 Dose: 40 mg Documented by: Sertraline HCl (Sertraline Hcl 25 Mg Tablet) 25 mg PO DAILY [facility] Last Admin: 04/16/21 09:12 Dose: 25 mg Documented by: Trazodone HCl (Trazodone Hcl 50 Mg Tablet) 50 mg PO BEDTIME PRN PRN Reason: Insomnia Allergies Allergies Allergy/AdvReac Type Severity Reaction Status Date / Time No Known Allergies Allergy Unverified 03/23/21 21:09 Assessment & Plan Assessment & Plan (1) Bipolar I disorder depressed with catatonic features: Status: Acute Code(s): F31.30 - Bipolar disorder, current episode depressed, mild or moderate severity, unspecified; F06.1 - Catatonic disorder due to known physiological condition (2) Aspiration pneumonitis: Status: Acute Code(s): J69.0 - Pneumonitis due to inhalation of food and vomit Assessment and Plan: On aumentin for 7 days. Assessment and Plan: Diagnostic Radiologist covering Patient seen 04/16 No changes to treatment plan Mr. Carcamo is a 30 year-old male admitted on Section 8 from [facility] for tx of catatonia. Pt's has presented with symptoms of protestant preoccupation followed by catatonia since 05/2020. Case extensively reviewed with patient's father who notes significant improvement with ECT and feels that the patient is normally socially anxious and would do better at home. Discussed need for outpatient ECT and transitioning 1 or 2 inpatient treatments. Patient has not regained normal mentation still with thought blocking patient's father denies that patient had past abnormal development mentation or neurological difficulties prior to May PLAN 1. Section 8, 15 minutes checks for safety. Continue ECT monitor mentation I spent minutes with the patient and/or on the patient floor today, greater than?50% of which was spent counseling/coordinating care. Reason for contiued inpatient stay Substantial Risk for: med/psych decompensation
[2021-04-16] MEDS: OLANZapine 5 MG TABLET PO (20:36)
[2021-04-17 06:11] VITALS: BP 125/78; PULSE 107; RESP 18; TEMP 37.1; O2SAT 97
--- NOTE | 2021-04-17 10:53 | P.PNPSI_ITS ---
Subjective Subjective Date of Service: 04/17/21 Reason For Visit: catatonia Subjective Notes: Section 8 Interim History: Pt reports he is doing good. He reports sleeping and eating fine. He denies AH/VH. Poverty of thought noted. Pt has been more visible on the unit, social with select peers, but affect constricted. He denies SI/HI. He is taking medications as prescribed. Medication Compliance: Yes Side effects from medications: No Attending Groups: Intermittent Review of Systems Review of Systems Unremarkable Yes all other systems are reviewed and are negative and Unobtainable due to mental status Mental Status Exam Mental Status Exam Narrative: Appearance: casually groomed, fair hygiene in NAD Behavior: pleasant psychomotor:less retardation Speech: clear, increasingly more spontaneous, soft tone, less delayed response. Thought process:appropriate response to question with single words, no loose ass ociations Thought content: no overt psychosis, feeling better, trying to understands what has happened to him for the past several months. Mood: okay Affect: brightens at times, does have constricted affect, mask like affect SI:denies HI:denies VH/AH:none Delusions:none Insight/judgment:improving Memory/cog:alert, oriented to place, month, date, year. Diagnostics Vital Signs (24Hr): Vital Signs - 24 hr 04/16/21 17:29 04/17/21 06:11 Temperature 99.0 F 98.8 F Pulse Rate 90 107 H Respiratory Rate 18 Blood Pressure 127/78 125/78 Pulse Oximetry 99 97 Body Mass Index 24.4 Labs Results: 04/11/21 15:44 04/11/21 15:44 Imaging Radiology Impressions: ITS Impressions Chest X-Ray 03/29/21 14:21 IMPRESSION: No acute disease. Chest CT 03/29/21 15:36 IMPRESSION: 1. Coarsening bronchovascular markings right lower lobe with 1 bronchiolar mucous plugging and some fine tree-in-bud acinar opacities suggesting sequela from aspiration. Subsegmental atelectasis left posterior base. Trace right effusion. No adenopathy. 2. No lobar or segmental airspace consolidation. 3. Solitary nodule right middle lobe under 4 mm. No additional follow-up required in low risk patient. Brain MRI 04/14/21 20:18 IMPRESSION: 1. There are no acute bleeds or infarcts. No masses are demonstrated. Medications Medications Current Medications Acetaminophen (Acetaminophen 325 Mg Tablet) 650 mg PO Q6H PRN PRN Reason: Headache/Pain Mild Scale (1-3) Last Admin: 03/30/21 19:03 Dose: 650 mg Documented by: Al Hydroxide/Mg Hydroxide (Magnesium Hydrox/Alum Hydrox 30 Ml Oral.Susp) 30 ml PO Q6H PRN PRN Reason: Heartburn/Nausea Hydroxyzine HCl (Hydroxyzine Hcl 25 Mg Tablet) 25 mg PO BEDTIME PRN PRN Reason: Anxiety Ibuprofen (Ibuprofen 600 Mg Tablet) 600 mg PO Q6H PRN PRN Reason: Fever >100.4 Last Admin: 03/31/21 20:55 Dose: 600 mg Documented by: Lorazepam (Lorazepam 1 Mg Tablet) 1 mg PO TID [facility] Last Admin: 04/16/21 20:36 Dose: 1 mg Documented by: Magnesium Hydroxide (Milk Of Magnesia 30 Ml Oral.Susp) 30 ml PO DAILY PRN PRN Reason: Constipation Olanzapine (Olanzapine 5 Mg Tablet) 5 mg PO BEDTIME [facility] Last Admin: 04/16/21 20:36 Dose: 5 mg Documented by: Omeprazole (Omeprazole 40 Mg Capsule.Dr) 40 mg PO BID@0630,1630 [facility] Last Admin: 04/16/21 16:41 Dose: 40 mg Documented by: Sertraline HCl (Sertraline Hcl 25 Mg Tablet) 25 mg PO DAILY [facility] Last Admin: 04/16/21 09:12 Dose: 25 mg Documented by: Trazodone HCl (Trazodone Hcl 50 Mg Tablet) 50 mg PO BEDTIME PRN PRN Reason: Insomnia Allergies Allergies Allergy/AdvReac Type Severity Reaction Status Date / Time No Known Allergies Allergy Unverified 03/23/21 21:09 Assessment & Plan Assessment & Plan (1) Bipolar I disorder depressed with catatonic features: Status: Acute Code(s): F31.30 - Bipolar disorder, current episode depressed, mild or moderate severity, unspecified; F06.1 - Catatonic disorder due to known physiological condition (2) Aspiration pneumonitis: Status: Acute Code(s): J69.0 - Pneumonitis due to inhalation of food and vomit Assessment and Plan: On aumentin for 7 days. Assessment and Plan: Mr. Carcamo is a 30 year-old male admitted on Section 8 from [facility] for tx of catatonia. Pt's has presented with symptoms of holiness preoccupation followed by catatonia since 05/2020. Case extensively reviewed with patient's father who notes significant improvement with ECT and feels that the patient is normally socially anxious and would do better at home. Discussed need for outpatient ECT and transitioning 1 or 2 inpatient treatments. Patient has not regained normal mentation still with thought blocking patient's father denies that patient had past abnormal de velopment mentation or neurological difficulties prior to May PLAN 1. Section 8, 15 minutes checks for safety. Continue ECT monitor mentation I spent minutes with the patient and/or on the patient floor today, greater than?50% of which was spent counseling/coordinating care. Reason for contiued inpatient stay Substantial Risk for: inability to function
[2021-04-17] MEDS: Sertraline HCL 25 MG TABLET PO (13:26)
[2021-04-17] MEDS: LORazepam 1 MG TABLET PO ×2 (14:33→20:50)
[2021-04-17] MEDS: Omeprazole 40 MG CAPSULE.DR PO (17:12)
[2021-04-17 18:00] VITALS: BP 142/96; PULSE 80; RESP 16; TEMP 36.8; O2SAT 98
[2021-04-17] MEDS: OLANZapine 5 MG TABLET PO (20:50)
[2021-04-18] MEDS: Omeprazole 40 MG CAPSULE.DR PO ×2 (05:59→16:43)
[2021-04-18 06:00] VITALS: BP 120/88; PULSE 81; RESP 18; TEMP 36.8; O2SAT 95
[2021-04-18] MEDS: Sertraline HCL 25 MG TABLET PO (08:51)
[2021-04-18] MEDS: LORazepam 1 MG TABLET PO ×3 (08:51→20:10)
--- NOTE | 2021-04-18 14:41 | P.PNPSI_ITS ---
Subjective Subjective Date of Service: 04/18/21 Reason For Visit: catatonia Subjective Notes: Section 8 Interim History: Pt continues to reports he is doing good. He reports sleeping and eating fine. He denies AH/VH. Most of his answers are limited to yes or no answers. Poverty of thought noted. Pt has been more visible on the unit, social with select peers, but affect constricted. He reports looking forward to return to his father's house eventually. He denies SI/HI. He is taking medications as prescribed. Per nursing, pt has been more visible on the unit, attends some groups. He completes his ADLs. Medication Compliance: Yes Side effects from medications: No Attending Groups: Intermittent Review of Systems Review of Systems Unremarkable Yes all other systems are reviewed and are negative and Unobtainable due to mental status Mental Status Exam Mental Status Exam Narrative: Appearance: casually groomed, fair hygiene in NAD Behavior: pleasant psychomotor:less retardation Speech: clear, increasingly more spontaneous, soft tone, less delayed response. Thought process:appropriate response to question with single words, no loose associations Thought content: no overt psychosis, feeling better, trying to understands what has happened to him for the past several months. Mood: okay Affect: brightens at times, does have constricted affect, mask like affect SI:denies HI:denies VH/AH:none Delusions:none Insight/judgment:improving Memory/cog:alert, oriented to place, month, date, year. Diagnostics Vital Signs (24Hr): Vital Signs - 24 hr 04/17/21 18:00 04/18/21 06:00 Temperature 98.3 F 98.2 F Pulse Rate 80 81 Respiratory Rate 16 18 Blood Pressure 142/96 H 120/88 Pulse Oximetry 98 95 Body Mass Index 24.4 Labs Results: 04/11/21 15:44 04/11/21 15:44 Imaging Radiology Impressions: ITS Impressions Chest X-Ray 03/29/21 14:21 IMPRESSION: No acute disease. Chest CT 03/29/21 15:36 IMPRESSION: 1. Coarsening bronchovascular markings right lower lobe with 1 bronchiolar mucous plugging and some fine tree-in-bud acinar opacities suggesting sequela from aspiration. Subsegmental atelectasis left posterior base. Trace right effusion. No adenopathy. 2. No lobar or segmental airspace consolidation. 3. Solitary nodule right middle lobe under 4 mm. No additional follow-up required in low risk patient. Brain MRI 04/14/21 20:18 IMPRESSION: 1. There are no acute bleeds or infarcts. No masses are demonstrated. Medications Medications Current Medications Acetaminophen (Acetaminophen 325 Mg Tablet) 650 mg PO Q6H PRN PRN Reason: Headache/Pain Mild Scale (1-3) Last Admin: 03/30/21 19:03 Dose: 650 mg Documented by: Al Hydroxide/Mg Hydroxide (Magnesium Hydrox/Alum Hydrox 30 Ml Oral.Susp) 30 ml PO Q6H PRN PRN Reason: Heartburn/Nausea Hydroxyzine HCl (Hydroxyzine Hcl 25 Mg Tablet) 25 mg PO BEDTIME PRN PRN Reason: Anxiety Ibuprofen (Ibuprofen 600 Mg Tablet) 600 mg PO Q6H PRN PRN Reason: Fever >100.4 Last Admin: 03/31/21 20:55 Dose: 600 mg Documented by: Lorazepam (Lorazepam 1 Mg Tablet) 1 mg PO TID [facility] Last Admin: 04/18/21 14:34 Dose: 1 mg Documented by: Magnesium Hydroxide (Milk Of Magnesia 30 Ml Oral.Susp) 30 ml PO DAILY PRN PRN Reason: Constipation Olanzapine (Olanzapine 5 Mg Tablet) 5 mg PO BEDTIME [facility] Last Admin: 04/17/21 20:50 Dose: 5 mg Documented by: Omeprazole (Omeprazole 40 Mg Capsule.Dr) 40 mg PO BID@0630,1630 [facility] Last Admin: 04/18/21 05:59 Dose: 40 mg Documented by: Sertraline HCl (Sertraline Hcl 25 Mg Tablet) 25 mg PO DAILY [facility] Last Admin: 04/18/21 08:51 Dose: 25 mg Documented by: Trazodone HCl (Trazodone Hcl 50 Mg Tablet) 50 mg PO BEDTIME PRN PRN Reason: Insomnia Allergies Allergies Allergy/AdvReac Type Severity Reaction Status Date / Time No Known Allergies Allergy Unverified 03/23/21 21:09 Assessment & Plan Assessment & Plan (1) Bipolar I disorder depressed with catatonic features: Status: Acute Code(s): F31.30 - Bipolar disorder, current episode depressed, mild or moderate severity, unspecified; F06.1 - Catatonic disorder due to known physiological condition (2) Aspiration pneumonitis: Status: Acute Code(s): J69.0 - Pneumonitis due to inhalation of food and vomit Assessment and Plan: On aumentin for 7 days. Assessment and Plan: Mr. Carcamo is a 30 year-old male admitted on Section 8 from [facility] for tx of catatonia. 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 Case extensively reviewed with patient's father who notes significant improvement with ECT and feels that the patient is normally socially anxious and would do better at home. Discussed need for outpatient ECT and transitioning 1 or 2 inpatient treatments. Patient has not regained normal mentation still with thought blocking patient's father denies that patient had past abnormal development mentation or neurological difficulties prior to May PLAN 1. Section 8, 15 minutes checks for safety. Continue ECT monitor mentation 2. Increase sertraline 50mg po daily 3. Continue olanzapine 5mg po qhs. 4. continue ativan 1mg po TID- may lower and monitor s/s of catatonia. I spent minutes with the patient and/or on the patient floor today, greater than?50% of which was spent counseling/coordinating care. Reason for contiued inpatient stay Substantial Risk for: inability to function
[2021-04-18 16:26] VITALS: BP 113/80; PULSE 85; TEMP 37; O2SAT 98
[2021-04-18] MEDS: OLANZapine 5 MG TABLET PO (20:10)
[2021-04-19] VITALS (9 sets, daily range): BP systolic 125–146; BP diastolic 80–90; PULSE 68–99; RESP 13–18; TEMP 36.2–37.2; O2SAT 95–97; BMI 24.4
--- NOTE | 2021-04-19 07:42 | MHC.SHP ---
Pre-Procedural Eval Section A Date of Service: 04/19/21 The patient is an INPATIENT: Yes Changes since office visit: Yes Changes in Medication; No Cold of Flu in the past 2 weeks, No New Medical Problems and No Patient answered all questions The History & Physical has been completed within 30 days and I have reviewed it.: Yes Section B Chief Complaint: catatonia Allergies: Allergies Allergy/AdvReac Type Severity Reaction Status Date / Time No Known Allergies Allergy Unverified 03/23/21 21:09 Plan I have reviewed the history and physical and performed a pertinent physical examination on my patient. No changes have occurred unless specified.
--- NOTE | 2021-04-19 07:44 | HO.ECTPROC ---
ECT Procedure Note Diagnosis/Treatment Date of Service: 04/19/21 Diagnosis: Catatonia Current Treatment Number: 8 Treatment: Series Interval Clinical Notes: pt with much ames affect still slowed mentation seems ok for discharge ECT Settings Device: THYMATRON DGx Electrode Placement: Bitemporal Program/Pulse Width: 0.50 Energy Percent: 80 Seizure Duration By EEG (in seconds): 38 Medications Administration General Anesthetic: Etomidate (18) Muscle Relaxant: Succinylcholine (100) Ancillary Medications Cardiovascular Medications: Glycopyrrolate Miscillaneous Medications: Propofol Airway Management Airway Management: Bag Mask Ventilation Treatment Recommendations No Changes Recommended: No change Notes: will try and transition to ouytpt tx Pt Tolerated Procedure w/o Issue: Yes
--- NOTE | 2021-04-19 08:40 | P.CONAN_ITS ---
HPI - Anesthesia Eval Consult details Narrative: 30 M for ECT [facility] Active Problems Active Problems: All Active Problems (Updated 03/31/21 @ 15:09 by Erlinda Salgado) Bipolar I disorder depressed with catatonic features (Acute) Aspiration pneumonitis (Acute) Catatonia (Acute) Routine medical exam (Acute) Family History Family history of problems with anesthesia: No Surgical History History of Problems with Anesthesia: No Social History Social History Household Members: Family Housing: House Patient Tobacco Use Status: Never used Tobacco Use of substances other than those prescribed or required for medical reasons: No Currently Displaying Signs/Symptoms of Drug Intoxication Withdrawal: No Any prior treatment program specific to substance use: No Are you DNR?: No Advance Directives: No Advance Directives Information Provided: No Do you have thoughts of harming others: None Do you have a plan to hurt others: No Plan Recently lost weight without trying: No How much weight loss: Unsure service: No Sexual orientation: Did not discuss Meds Allergies Allergy/AdvReac Type Severity Reaction Status Date / Time No Known Allergies Allergy Unverified 03/23/21 21:09 Active Medications: Current Medications Acetaminophen (Acetaminophen 325 Mg Tablet) 650 mg PO Q6H PRN PRN Reason: Headache/Pain Mild Scale (1-3) Last Admin: 03/30/21 19:03 Dose: 650 mg Documented by: Al Hydroxide/Mg Hydroxide (Magnesium Hydrox/Alum Hydrox 30 Ml Oral.Susp) 30 ml PO Q6H PRN PRN Reason: Heartburn/Nausea Hydroxyzine HCl (Hydroxyzine Hcl 25 Mg Tablet) 25 mg PO BEDTIME PRN PRN Reason: Anxiety Ibuprofen (Ibuprofen 600 Mg Tablet) 600 mg PO Q6H PRN PRN Reason: Fever >100.4 Last Admin: 03/31/21 20:55 Dose: 600 mg Documented by: Lorazepam (Lorazepam 1 Mg Tablet) 1 mg PO TID [facility] Last Admin: 04/18/21 20:10 Dose: 1 mg Documented by: Magnesium Hydroxide (Milk Of Magnesia 30 Ml Oral.Susp) 30 ml PO DAILY PRN PRN Reason: Constipation Olanzapine (Olanzapine 5 Mg Tablet) 5 mg PO BEDTIME JAS[facility] Last Admin: 04/18/21 20:10 Dose: 5 mg Documented by: Omeprazole (Omeprazole 40 Mg Capsule.) 40 mg PO BID@0630,1630 [facility] Last Admin: 04/18/21 16:43 Dose: 40 mg Documented by: Sertraline HCl (Sertraline Hcl 50 Mg Tablet) 50 mg PO DAILY [facility] Trazodone HCl (Trazodone Hcl 50 Mg Tablet) 50 mg PO BEDTIME PRN PRN Reason: Insomnia Exam Exam Date and Time: April 19, 2021 0840 Height,Weight and Vital Signs: Height 5 ft 3.5 in Weight 63.503 kg Last Vital Signs Temp 97.7 F 04/19/21 08:30 Pulse 77 04/19/21 08:30 Resp 13 04/19/21 08:30 BP 133/80 04/19/21 08:30 Pulse Ox 97 04/19/21 08:30 Pertinent Lab Results Pertinent Lab Results: Laboratory Tests 03/24/21 03/24/21 03/27/21 15:40 15:40 12:45 WBC 5.5 RBC 5.25 Hgb 14.8 Hct 43.7 MCV 83.2 MCH 28.2 MCHC 33.9 RDW 11.9 Plt Count 181 MPV 11.1 Immature Gran % (Auto) 0.4 Neut % (Auto) 59.3 Lymph % (Auto) 30.1 Wright % (Auto) 9.4 Eos % (Auto) 0.4 Baso % (Auto) 0.4 Lymph # (Auto) 1.7 Wright # (Auto) 0.5 Eos # (Auto) 0.0 Baso # (Auto) 0.0 Abs Immat Gran (auto) 0.02 Absolute Neuts (auto) 3.3 Absolute Nucleated RBC 0.000 Nucleated RBC % (auto) 0.0 D-Dimer Sodium 139 Potassium 4.1 Chloride 105 Carbon Dioxide 23 Anion Gap 15 BUN 10 Creatinine 0.85 Estim Creat Clear Calc TNP Estimated GFR > 60 Random Glucose 86 Lactic Acid Calcium 9.5 Total Bilirubin 0.5 AST 19 ALT 28 Alkaline Phosphatase 115 Total Creatine Kinase 71 Total Protein 7.2 Albumin 4.3 COVID-19 ([facility]) Negative COVID-19 Clin Com See Note 03/29/21 03/29/21 03/29/21 13:18 13:18 13:18 WBC 11.1 H RBC 5.12 Hgb 14.4 Hct 42.9 MCV 83.8 MCH 28.1 MCHC 33.6 RDW 11.9 Plt Count 169 MPV 10.6 Immature Gran % (Auto) 0.3 Neut % (Auto) 77.9 H Lymph % (Auto) 11.7 L Wright % (Auto) 9.7 Eos % (Auto) 0.1 Baso % (Auto) 0.3 Lymph # (Auto) 1.3 Wright # (Auto) 1.1 Eos # (Auto) 0.0 Baso # (Auto) 0.0 Abs Immat Gran (auto) 0.03 Absolute Neuts (auto) 8.63 H Absolute Nucleated RBC 0.000 Nucleated RBC % (auto) 0.0 D-Dimer 386 Sodium 143 Potassium 3.7 Chloride 109 H Carbon Dioxide 25 Anion Gap 13 BUN 8 L Creatinine 1.00 Estim Creat Clear Calc 88.5 Estimated GFR > 60 Random Glucose 95 Lactic Acid Calcium 9.1 Total Bilirubin 0.3 AST 13 ALT 16 Alkaline Phosphatase 94 Total Creatine Kinase 312 H D Total Protein 6.9 Albumin 4.0 COVID-19 ([facility]) COVID-19 [employer] 03/29/21 03/30/21 03/30/21 15:13 08:17 08:17 WBC 8.7 RBC 4.70 Hgb 13.1 L Hct 39.3 L MCV 83.6 MCH 27.9 MCHC 33.3 RDW 11.9 Plt Count 177 MPV 11.3 Immature Gran % (Auto) 0.3 Neut % (Auto) 64.1 Lymph % (Auto) 22.3 Wright % (Auto) 12.4 H Eos % (Auto) 0.7 Baso % (Auto) 0.2 Lymph # (Auto) 1.9 Wright # (Auto) 1.1 Eos # (Auto) 0.1 Baso # (Auto) 0.0 Abs Immat Gran (auto) 0.03 Absolute Neuts (auto) 5.57 Absolute Nucleated RBC 0.000 Nucleated RBC % (auto) 0.0 D-Dimer Sodium Potassium Chloride Carbon Dioxide Anion Gap BUN Creatinine Estim Creat Clear Calc Estimated GFR Random Glucose Lactic Acid 1.8 Calcium Total Bilirubin AST ALT Alkaline Phosphatase Total Creatine Kinase 208 H Total Protein Albumin COVID-19 ([facility]) COVID-19 [employer] 04/05/21 04/05/21 04/11/21 20:57 20:57 15:44 WBC 17.7 H 8.1 RBC 4.61 5.41 Hgb 12.9 L 14.9 Hct 38.2 L 46.1 D MCV 82.9 85.2 MCH 28.0 27.5 MCHC 33.8 32.3 RDW 11.9 12.7 Plt Count 251 D 321 D MPV 10.3 10.3 Immature Gran % (Auto) 0.6 H 0.5 H Neut % (Auto) 77.4 H 55.0 Lymph % (Auto) 13.4 L 31.9 Wright % (Auto) 8.1 11.2 H Eos % (Auto) 0.2 0.9 Baso % (Auto) 0.3 0.5 Lymph # (Auto) 2.4 2.6 Wright # (Auto) 1.4 H 0.9 Eos # (Auto) 0.0 0.1 Baso # (Auto) 0.1 0.0 Abs Immat Gran (auto) 0.10 H 0.04 H Absolute Neuts (auto) 13.7 H 4.4 Absolute Nucleated RBC 0.000 0.000 Nucleated RBC % (auto) 0.0 0.0 D-Dimer Sodium 139 Potassium 4.3 Chloride 105 Carbon Dioxide 28 Anion Gap 10 L BUN 17 H D Creatinine 1.15 Estim Creat Clear Calc 76.9 Estimated GFR > 60 Random Glucose 106 Lactic Acid Calcium 9.0 Total Bilirubin 0.4 AST 34 D ALT 84 H Alkaline Phosphatase 90 Total Creatine Kinase Total Protein 6.5 Albumin 3.9 COVID-19 ([facility]) COVID-19 Clin Com 04/11/21 15:44 WBC RBC Hgb Hct MCV MCH MCHC RDW Plt Count MPV Immature Gran % (Auto) Neut % (Auto) Lymph % (Auto) Wright % (Auto) Eos % (Auto) Baso % (Auto) Lymph # (Auto) Wright # (Auto) Eos # (Auto) Baso # (Auto) Abs Immat Gran (auto) Absolute Neuts (auto) Absolute Nucleated RBC Nucleated RBC % (auto) D-Dimer Sodium 141 Potassium 4.2 Chloride 104 Carbon Dioxide 29 Anion Gap 12 BUN 10 Creatinine 1.10 Estim Creat Clear Calc 80.4 Estimated GFR > 60 Random Glucose 87 Lactic Acid Calcium 9.7 D Total Bilirubin 0.5 AST 19 D ALT 48 H Alkaline Phosphatase 99 Total Creatine Kinase Total Protein 7.8 Albumin 4.5 COVID-19 ([facility]) COVID-19 Clin Com Airway Mallampati Class: II TM Dist: >3cm Neck ROM: Full Heart: rrr Lungs: bl breath sounds Assessment and Plan Assessment Anesthesia Assessment: Anesthesia Plan Discussed Final Anesthetic Review Family History of Problems with Anesthesia: No History of Problems with Anesthesia: No NPO: Yes ASA Class: II Final Preanesthetic Review: Meds/Allgs Chart Reviewed and Anes Risks/Benef Reviewed Patient Risk: Intermediate Procedure Risk: Intermediate Anesthetic Plan Anesthetic Plan: GA Disposition: Standard PACU
[2021-04-19] MEDS: Omeprazole 40 MG CAPSULE.DR PO (10:10)
[2021-04-19] MEDS: Sertraline HCL 50 MG TABLET PO (10:10)
[2021-04-19] MEDS: LORazepam 1 MG TABLET PO ×2 (10:11→15:10)
--- NOTE | 2021-04-19 10:51 | PM.PSYDC ---
DS: Providers Provider Date of Service: 04/19/21 Date of admission: 03/23/21 20:27 Primary care physician: Unknown Physician DS: Diagnosis Discharge Diagnosis (1) Bipolar I disorder depressed with catatonic features: Status: Acute (2) Aspiration pneumonitis: Status: Deleted DS: Medications Discharge Medications Home Medications: Previous Rx's Medication Instructions Recorded lorazepam 1 mg tablet 1 mg PO TID #90 tab 04/19/21 olanzapine 5 mg tablet 5 mg PO BEDTIME #30 tab 04/19/21 sertraline 50 mg tablet 50 mg PO DAILY #30 tab 04/19/21 Data Data Completed and Pending Completed studies during hospitalization [Text1]: 03/29/21 15:40 Blood - Venous Blood Culture - Final No growth after 5 days. 03/29/21 15:44 Blood - Venous Blood Culture - Final No growth after 5 days. Imaging Diagnostic Imaging Impressions Chest X-Ray 03/29/21 14:21 IMPRESSION: No acute disease. Chest CT 03/29/21 15:36 IMPRESSION: 1. Coarsening bronchovascular markings right lower lobe with 1 bronchiolar mucous plugging and some fine tree-in-bud acinar opacities suggesting sequela from aspiration. Subsegmental atelectasis left posterior base. Trace right effusion. No adenopathy. 2. No lobar or segmental airspace consolidation. 3. Solitary nodule right middle lobe under 4 mm. No additional follow-up required in low risk patient. Brain MRI 04/14/21 20:18 IMPRESSION: 1. There are no acute bleeds or infarcts. No masses are demonstrated. DS: Summary Hospital Course Hospital Course: Subjective Notes: Section 8 Narrative: Mr. Mooney is a 30 year-old male with recent psychiatric hx of synagogue preoccupation starting in May of 2020, followed by symptoms of catatonia. Per pt's father, Juan Ramon, pt started at beginning of the year to present as internally preoccupied, reading bible, not going to sleep, reading his bible. Pt later quit his job for unclear reasons in May. By June, per father, pt was mostly at home and progressively mute, not eating not engaging much. Pt has his first inpatient psychiatric admission in 10/2020 at [facility] for catatonia that apparently quickly resolved and pt was discharged within a week. However, pt quickly de-compensated and continued to present as mute, not moving, minimally eating. Pt was admitted to [facility] inpatient psych unit on 12/14/20 for treatment of catatonia. Per records received from [facility] pt was initially started on ativan 2mg po TID, given IM as well with little to no improvement. Pt was after started on olanzapine and haldol for psychosis related to synagogue preoccupations. Pt was involuntarily committed on 03/16/2021 with plan for pt to be transferred to facility that could provide ECT treatment. [place] of discharge[place] [facility] [place] was on haldol 10mg po BID, Olanzapine 15mg po BID, ativan 2mg po BID.? Pt was transferred [place] [facility] with plan to start ECT for tx resistant catatonia. On the unit, Pt lying down on bed. His eyes are open, he turns his head when his name is called. He is mute throughout our encounter. He does not follow commands when asked to follow this keno writer / runner finger with his gaze or lift arms. He does not answer any of my questions. He is currently not eating nor receiving medications orally. Labs were completed on admission including CBC, CMP, all wnl. Pt seen by hospitalist for H&P and clearance for ECT. Pt's father contacted and updated on pt's status on admission. Past Psychiatric History: Inpatient: 10/2020 catatonia, religiously preoccupied Medical Evaluation Reviewed: Yes HOSPITAL COURSE Pt admitted on section 8 for treatment of resistant catatonia and ECT. Pt initially presented as mute, with waxy flexibility, negativism, blank stare, minimal oral intake, mostly in bed, with significant psychomotor retardation. Pt was started on ativan 2 mg PO/IM QID. He was medically cleared for ECT. He received a total of 6 unilateral ECT tx. He gradually began to move more spontaneously and talk more although poverty of thought was evident. He was able to respond to questions in more logical manner. He denied SI/HI/VH/AH. His family visit him often and reported significant improvement with ECT. At time of discharge, pt was showering, was attending assigned groups, affect brighter, no overt signs of psychosis noted. He had agreed to continue OP ECT. There were no incidences of disruptive behaviors nor use of restraints. He was continued on olanzapine 5mg po qhs. Status at Discharge Cognitive/behavioral status at discharge: Pt with brighter affect, spontaneous and logical speech. He denies SI/HI. No signs of aggression towards self or others. No overt signs of psychosis or delusional content reported. Functional status at discharge: independent ambulation Overall status at discharge: patient is progressing back to baseline Time Spent with Patient Time attestation: Total time spent providing and/or coordinating discharge services: Time spent: Greater than 30 minutes Discharge Plan Discharge Patient Disposition: Home, Self-Care Discharge Diagnosis: Bipolar Disorder with catatonic features Referrals: Sarah Cedillo ([employer]) [Other] - 1 Week (Llame a Sarah para obtener ayuda para coordinar las citas y la atenci?n de seguimiento.) ECT [Other] - 04/28/21 6:00 am ([facility] a [facility] seis de la ma?damion del [place] [facility]iem[facility] 2020.) [facility] ECT [Other] - 1 Week (Referido tue enviado al [facility]onathan no le jiang asignado malachi nerissa.) Physician,Unknown J [Primary Care Provider] - 1 Week Discharge Medications: New olanzapine 5 mg Tablet 5 mg PO BEDTIME Qty: 30 RF: 0 lorazepam 1 mg Tablet 1 mg PO TID Qty: 90 RF: 0 sertraline 50 mg Tablet 50 mg PO DAILY Qty: 30 RF: 0 Discharge Orders: Discharge Order (Routine); Ordered 04/19/21 Ordered By: Erlinda Salgado Diet: regular diet Activity on Discharge: As tolerated Stand Alone Forms: Patient Portal Discharge page, Community Support Print Language: Bulgarian Care Plan Goals: 1. Maintain mood 2. No SI/HI 3. Less s/s of catatonia 4. No signs of synagogue preoccupation Health Concerns: 1. Follow up with PCP for regular care Plan of Treatment: 1. Take medications as prescribed. 2. Go to nearest ED or call 911 in event of emergency Assessment: Pt presents with much less s/s of catatonia. Pt is ambulating on his own, less blank stare, no waxy flexibility, no negativism, no mutism noted. Pt's affect is brighter, but still constricted. There are no overt signs of psychosis. No signs of aggression towards self or others. Discharge Date/Time: 04/19/21 15:23
== END 2021-04-19 15:23 | disposition home or self-care (01) | DRG 753 ==
PROVIDERS: Psychiatry & Neurology Psychiatry; Admitting Provider Psychiatry & Neurology Psychiatry; Visit Provider Social Worker
PROC: GZB4ZZZ Other Electroconvulsive Therapy (ICD-10-PCS; CPT 90870; principal; 2021-03-27 08:00)
DX: F31.30 Bipolar disorder, current episode depressed, mild or moderate severity, unspecified (principal); J69.0 Pneumonitis due to inhalation of food and vomit; F06.1 Catatonic disorder due to known physiological condition; R00.0 Tachycardia, unspecified; Z20.822 Contact with and (suspected) exposure to COVID-19; Z79.899 Other long term (current) drug therapy
CPT/HCPCS: 36415; 70551; 71045; 71250; 80053; 82550; 83605; 85025; 85379; 87040; 87635; 90870; 92610; 93005; J0330; J0461; J1650; J1885; J2060; J2405

== ENCOUNTER → 2021-04-28 06:06 | Day surgery (SDC) | payer OTHER, SELFPAY | PROVIDERS: Visit Provider Psychiatry & Neurology Psychiatry | DX: F33.3 Major depressive disorder, recurrent, severe with psychotic symptoms (principal); Z53.20 Procedure and treatment not carried out because of patient's decision for unspecified reasons ==